=== PATIENT | female | born 1930 | race Caucasian/White ===

== ENCOUNTER 2019-09-24 23:01 | Inpatient (IN) | payer MEDICARE, OTHER ==
--- NOTE | 2019-09-25 00:03 | RAD ---
XR Hip Lt 2-3 View INDICATION: Fall with left hip injury COMPARISON: None FINDINGS: Bones: There is a varus angulated mid cervical left femoral neck fracture. 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 SI joints and symphysis pubis: There is mild degenerative change of a left SI joint. Intrapelvic contents: Visualized bowel gas pattern is within normal limits. Surrounding soft tissues: Radiographically normal. IMPRESSION: 1. Angulated mid cervical left femoral neck fracture.
--- NOTE | 2019-09-25 00:04 | RAD ---
AP view of the pelvis INDICATION: Fall with left hip pain COMPARISON: None. FINDINGS: Bones: There is a varus angulated mid cervical left femoral neck fracture. There is a right hip endop rosthesis in place. There is diffuse osteopenia. 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 SI joints and symphysis pubis: There is mild degenerative change. Intrapelvic contents: Within normal limits. IMPRESSION: Varus angulated mid cervical left femoral neck fracture.
[2019-09-25] MEDS ORDERED: Ondansetron PF 4 MG/2 ML Vial ONE ×2 (00:05→11:23)
[2019-09-25] MEDS ORDERED: Morphine 4 MG/ML VIAL ONE (00:05)
--- NOTE | 2019-09-25 00:07 | RAD ---
XR Wrist 3 Lt View STANDARD: 09/24/2019 11:24 PM CLINICAL INDICATION: Fall with left wrist pain COMPARISON: None. FINDINGS: Bones: There is shortening of the distal radius with transverse oriented lucency involving the left distal radial metaphyseal region on the AP and oblique projections. There is a cortical step-off involving the dorsal aspect of the dorsal radial styloid. Findings are suspicious for dorsally impact ed left distal radius fracture. Recommend correlation with clinical exam. Joints: There is moderate STT and first CMC osteoarthrosis.. Soft Tissue: There is mild soft tissue swelling surrounding the left wrist.. IMPRESSION: Findings suspicious for a nondisplaced dorsally impacted left distal radial metaphyseal fracture..
[2019-09-25 00:45] LABS: #Eosinphils 0.1 thou/uL (0.0-0.7); #Monocytes 0.5 thou/uL (0.11-0.59); #Neutrophils 6.5 thou/uL (1.40-6.50); %Basophils 0.3 % (0.0-1.0); %Eosinophils 0.8 % (0.0-10.0); %Lymphocytes 12.2 % (21.0-51.0); %Monocytes 6.3 % (0.0-10.0); %Neutrophils 80.4 % (42.0-75.0); Hemoglobin 14.2 g/dL (12.0-16.0); Mean Corpuscular HGB CONC 34.7 g/dL (32.0-36.0); Mean Corpuscular Hemoglobin 33.6 pg (27.0-31.0); Mean Platelet Volume 9.2 fL (7.4-10.4); Platelet Count 193 thou/uL (130-400); RBC Distribution Width 12.1 % (11.5-14.5); Red Blood Cell (RBC) Count 4.21 mill/uL (4.20-5.40); White Blood Cell (WBC) Count 8.1 thou/uL (4.8-10.8)
[2019-09-25 01:06] LABS: ALT (SGPT) 14 U/L (8-55); AST (SGOT) 15 U/L (5-34); Albumin 3.8 g/dL (3.4-4.8); Alkaline Phosphatase 94 U/L (40-110); Anion Gap 15 mmol/L (10-20); BUN (Urea Nitrogen) 13 mg/dL (9.8-20.1); Bilirubin, Total 0.2 mg/dL (0.2-1.2); Calc. Creatinine Clearance 0 mL/min (70-130); Calcium 8.9 mg/dL (7.8-10.44); Carbon Dioxide 24 mmol/L (23-31); Chloride 96 mmol/L (98-107); Estimated GFR-MDRD 52; Globulin 2.6 g/dL (2.4-3.5); Glucose 356 mg/dL (83-110); Potassium 4.8 mmol/L (3.5-5.1); Protein, Total 6.4 g/dL (6.0-8.3); Sodium 130 mmol/L (136-145)
--- NOTE | 2019-09-25 01:53 | HP ---
This is Peng Devi PA-C dictating a report for Shaggy Andrade MD. REQUESTING PHYSICIAN: Dr. Monique. ATTENDING SURGEON: Dr. Andrade. CONSULTATIONS: Orthopedics, Dr. Dejesus. HISTORY OF PRESENT ILLNESS: The patient is an 88-year-old woman who was at home, reaching for the door knob when she lost her balance and fell forward landing on her left side. She denied loss of consciousness. She was brought to the emergency department by ground EMS after she was able to summon her son, who lives with her. She was brought to the emergency department, underwent evaluation and examination and was noted to have suspected left distal radius fracture and a displaced left intertrochanteric femur fracture, at which time we were asked to evaluate the patient for admission and obtain orthopedic consultation. ALLERGIES: NONE. CURRENT MEDICATIONS: 1. Metformin. 2. Pantoprazole oral. 3. Simvastatin. 4. Alendronate. 5. Bisoprolol. 6. . PAST MEDICAL HISTORY: Type 2 diabetes, hypertension, hypercholesterolemia, uterine fibroids. PAST SURGICAL HISTORY: Right partial hip replacement, tonsillectomy, total hysterectomy. SOCIAL HISTORY: The patient denies drug, tobacco, or alcohol use. She lives at home with family. REVIEW OF SYSTEMS: 10-point review of systems is negative unless otherwise stated. PHYSICAL EXAMINATION: VITAL SIGNS: Blood pressure 142/82, heart rate 73, respirations 18, oxygen saturation 100% one 1 L via nasal cannula, and temperature is 98.1. GENERAL: The patient is resting comfortably in bed. She is awake, alert, conversant, appropriate. Tran Coma Scale is 15. HEENT: Unremarkable. The patient is normocephalic, atraumatic. Eyes, extraocular motions are intact. PERRLA bilaterally. Ears are atraumatic without discharge. Nose is atraumatic without discharge. Oropharynx is clear. NECK: Nontender. Trachea is midline. No JVD. CHEST: Clear to auscultation with good inspiratory and expiratory effort. HEART: Regular rate and rhythm. ABDOMEN: Soft, flat, nontender with active bowel sounds. PELVIS: Stable. EXTREMITIES: Neurovascularly intact x4. The patient does have tenderness to palpation to her left wrist and left hip consistent with her fractures. BACK: By report is atraumatic and nontender. LABORATORY FINDINGS: White blood cell count 8.1, hemoglobin 14.2, hematocrit 40.9, platelets 193. Sodium 130, potassium 4.8, chloride 96, CO2 of 24, BUN 13, creatinine 1.00, glucose 356. LFTs are unremarkable. RADIOGRAPHIC FINDINGS: AP chest x-ray shows no acute findings. CT of the brain without contrast shows no acute findings. AP pelvis shows a varus angulated mid cervical left femoral neck fracture. Views of the left hip again demonstrate the angulated mid cervical left femoral neck fracture. Views of the left wrist show findings suspicious for a nondisplaced dorsally impacted left distal radius metaphyseal fracture. ASSESSMENT AND PLAN: 1. Status post ground level fall. 2. Left distal radius fracture. 3. Left femoral neck fracture. 4. Acute pain secondary to above. 5. Hyponatremia, present on admission, unknown etiology. 6. Hyperglycemia secondary to diabetes. 7. History of hypertension, hypercholesterolemia, diabetes. PLAN: Plan will be to admit the patient to the surgical floor. She will be kept n.p.o. We will do IV fluid hydration and sliding scale insulin, pain control, pulmonary toilet, gastritis and mechanical VTE prophylaxis. The patient was splinted of her left forearm in the emergency department and the Emergency Department notified Dr. Dejesus of this patient. The evaluation, examination, laboratory, and radiographic findings will be discussed with Dr. Andrade after this dictation. Job ID: [id number]
[2019-09-25] MEDS ORDERED: Dextrose 5% in Water 1,000 ML IV PRN (02:38)
[2019-09-25] MEDS ORDERED: hydrALAZINE 20 MG/ML VIAL SLOW IVP PRN (02:38)
[2019-09-25] MEDS ORDERED: Dextrose 50% Abboject 50 ML SYRINGE SLOW IVP PRN (02:38)
[2019-09-25] MEDS ORDERED: Ondansetron PF 4 MG/2 ML Vial IVP PRN (02:38)
[2019-09-25] MEDS ORDERED: Ondansetron ODT 4 MG TAB PO PRN (02:38)
[2019-09-25] MEDS ORDERED: Morphine 2 MG/ML SYRINGE SLOW IVP PRN (02:38)
[2019-09-25] MEDS ORDERED: Morphine 4 MG/ML VIAL SLOW IVP PRN (02:38)
[2019-09-25 03:04] LABS: Magnesium 1.9 mg/dL (1.6-2.6); Phosphorus 3.4 mg/dL (2.3-4.7)
[2019-09-25] MEDS: Sodium Chloride 0.9% 1,000 ML IV SCH ×2 (03:08→15:00)
[2019-09-25 05:19] VITALS: BMI 23.5
--- NOTE | 2019-09-25 06:28 | CT ---
CT OF THE BRAIN WITHOUT CONTRAST: 09/24/19 INDICATION: Mechanical fall with head injury. COMPARISON: None. FINDINGS: There is generalized cerebral and cerebellar atrophy. No acute infarct, hemorrhage or hydrocephalus i s present. Mastoid air cells and paranasal sinuses are clear. Skull is intact. IMPRESSION: No acute intracranial abnormality. POS: BH
[2019-09-25] MEDS: Insulin Regular 300 UNITS/3 ML VIAL SC PRN ×2 (06:45→21:28)
[2019-09-25 07:05] LABS: #Lymphocytes 0.7 thou/uL (1.20-3.40); #Monocytes 0.5 thou/uL (0.11-0.59); #Neutrophils 9.1 thou/uL (1.40-6.50); %Eosinophils 0.4 % (0.0-10.0); %Lymphocytes 6.8 % (21.0-51.0); %Neutrophils 87.8 % (42.0-75.0); Hemoglobin 13.6 g/dL (12.0-16.0); Mean Corpuscular HGB CONC 34.6 g/dL (32.0-36.0); Mean Corpuscular Hemoglobin 33.5 pg (27.0-31.0); Mean Corpuscular Volume 96.9 fL (78.0-98.0); Mean Platelet Volume 9.3 fL (7.4-10.4); Platelet Count 176 thou/uL (130-400); RBC Distribution Width 12.2 % (11.5-14.5); Red Blood Cell (RBC) Count 4.05 mill/uL (4.20-5.40); White Blood Cell (WBC) Count 10.3 thou/uL (4.8-10.8)
[2019-09-25 07:18] LABS: Prothrombin Time 12.7 sec (12.0-14.7)
[2019-09-25 07:28] LABS: Phosphorus 3.9 mg/dL (2.3-4.7)
[2019-09-25 07:31] LABS: Anion Gap 12 mmol/L (10-20); BUN (Urea Nitrogen) 14 mg/dL (9.8-20.1); Calc. Creatinine Clearance 41 mL/min (70-130); Calcium 8.3 mg/dL (7.8-10.44); Carbon Dioxide 27 mmol/L (23-31); Chloride 96 mmol/L (98-107); Estimated GFR-MDRD 56; Glucose 353 mg/dL (83-110); Magnesium 1.8 mg/dL (1.6-2.6); Potassium 5.3 mmol/L (3.5-5.1); Sodium 130 mmol/L (136-145)
--- NOTE | 2019-09-25 07:35 | RAD ---
PORTABLE CHEST: HISTORY: Preop. FINDINGS: Lung yousif appear clear. No evidence of infiltrate. Heart and mediastinum unremarkable. IMPRESSION: No acute finding. POS: AGW
[2019-09-25] MEDS ORDERED: traMADol HCl 50 MG TAB PO PRN (08:05)
[2019-09-25] MEDS ORDERED: Alendronate Sodium 70 mg Tablet PO SCH (08:15)
[2019-09-25] MEDS: Acetaminophen 325 MG TAB PO SCH ×3 (08:30→21:27)
[2019-09-25] MEDS ORDERED: CEFAZOLIN 2 GM in Premix Bag 1 BAG IVPB SCH ×2 (08:45→14:00)
[2019-09-25] MEDS ORDERED: Famotidine 20 MG TAB PO SCH (09:00)
--- NOTE | 2019-09-25 09:15 | CON ---
DATE OF CONSULTATION: CHIEF COMPLAINT: Left hip pain. HISTORY OF PRESENT ILLNESS: Ms. Summers is an 88-year-old female, who fell at home. She lost her balance, reaching for her door. She landed on her left side. She has been falling frequently over the last several months. She does not use a walker. She lives with her son and [id number]. Unfortunately, she injured her left wrist and her left hip. X-rays showed a left femoral neck fracture, which was displaced as well as a nondisplaced left distal radius fracture. The patient was admitted to the hospital overnight. She has had pain control. She is resting comfortably. She denies any chest pain or shortness of breath. Orthopedics was consulted for her bony injuries. ALLERGIES: NONE. MEDICATIONS: 1. Metformin. 2. Pantoprazole. 3. Simvastatin. 4. Alendronate. 5. Bisoprolol. PAST MEDICAL HISTORY: Type 2 diabetes, hypertension, hypercholesterolemia, and fibroids. PAST SURGICAL HISTORY: Right hip hemiarthroplasty for fracture, tonsillectomy, hysterectomy. SOCIAL HISTORY: The patient lives with her son. She denies drug, alcohol, or tobacco use. REVIEW OF SYSTEMS: Positive for left hip pain with movement. Otherwise, negative 10-point review of systems. IMAGING: X-rays of the left hip and pelvis demonstrate a femoral neck fracture on the left with displacement and shortening of the bone. There is a previous hemiarthroplasty on the right hip. Left wrist x-rays demonstrated nondisplaced distal radius fracture. The patient has osteoarthritis of the hand and wrist. PHYSICAL EXAMINATION: VITAL SIGNS: Temperature is 97.5, pulse is 79, respiratory rate of 14, blood pressure is 127/71. GENERAL: She is alert and oriented, sitting upright, in no apparent distress. Breathing comfortably. HEENT: Normocephalic and atraumatic. RESPIRATORY: Breathing comfortably. CARDIOVASCULAR: Peripheral pulses are palpable and regular. MUSCULOSKELETAL: The patient's left lower extremity is shortened with external rotation. She is able to flex and extend the foot, ankle, and toes. She has a palpable dorsalis pedis pulse. The leg is warm and well perfused. Left upper extremity is in a splint above the wrist. She is able to flex and extend the fingers. She has mild swelling of her hand. Right upper and lower extremities are atraumatic. IMPRESSION: Left femoral neck fracture, displaced. Left distal radius fracture, nondisplaced. PLAN: The patient will go to the operating room this morning for hemiarthroplasty of the left hip. Goal is to restore the ability to mobilize and prevent complications of prolonged bedrest. Risks to include infection, pain, nerve or vascular injury, nonunion, wound complication, dislocation, hardware failure, and others. We will treat her wrist with a splint and this can be later converted to a wrist brace. She should be n.p.o. She will have antibiotics on-call to the operating room. Job ID: [id number]
[2019-09-25] MEDS ORDERED: Neomycin-Polymyxin 1 ML AMP ONE (09:18)
[2019-09-25] MEDS ORDERED: Insulin Regular 300 UNITS/3 ML VIAL ONE ×2 (09:41→11:23)
[2019-09-25] MEDS ORDERED: Fentanyl 100 MCG/2 ML VIAL ONE (09:42)
[2019-09-25] MEDS ORDERED: Morphine Sulfate 2 MG/ML SYRINGE SLOW IVP PRN (11:02)
[2019-09-25] MEDS ORDERED: HYDROmorphone 2 MG/ML VIAL SLOW IVP PRN (11:02)
[2019-09-25] MEDS ORDERED: PACU-Morphine 4MG/ML VIAL SLOW IVP PRN (11:02)
[2019-09-25] MEDS ORDERED: Promethazine HCl 25 MG/ML VIAL IM PRN (11:02)
[2019-09-25] MEDS ORDERED: Promethazine HCl 25 MG/ML VIAL SLOW IVP PRN (11:02)
[2019-09-25] MEDS ORDERED: Ondansetron HCl/PF 4 MG/2 ML Vial IVP PRN (11:02)
[2019-09-25] MEDS ORDERED: SUGAMMADEX SODIUM 200 MG/2 ML VIAL ONE (11:19)
[2019-09-25] MEDS ORDERED: Ketorolac Tromethamine 30 MG/ML VIAL ONE (11:23)
[2019-09-25] MEDS ORDERED: Lidocaine 1% PF 5 ML VIAL ONE (11:23)
[2019-09-25] MEDS ORDERED: PHENYLEPHRINE-NS 100 MCG/ML 10 ML SYRINGE ONE (11:23)
[2019-09-25] MEDS ORDERED: Dexamethasone 20 MG/5 ML VIAL ONE (11:23)
[2019-09-25] MEDS ORDERED: PROPOFOL 200 MG/20 ML VIAL ONE (11:23)
[2019-09-25] MEDS ORDERED: Rocuronium Bromide 10 MG/ML (10ML VIAL) ONE (11:23)
[2019-09-25] MEDS ORDERED: EPHEDRINE 25 MG/5 ML SYRINGE ONE (11:23)
--- NOTE | 2019-09-25 11:58 | OP ---
DATE OF PROCEDURE: 09/25/2019 PROCEDURE PERFORMED: Left hip hemiarthroplasty. PREOPERATIVE DIAGNOSIS: Left femoral neck fracture. POSTOPERATIVE DIAGNOSIS: Left femoral neck fracture. COMPLICATIONS: None. ESTIMATED BLOOD LOSS: Minimal. FINISH FILER: Marco Garcia. IMPLANTS: DePuy basic press-fit Rice stem size 5 with a size 44 mm +5 femoral head. INDICATION FOR PROCEDURE: Ms. Summers is an 88-year-old female, who fell and fractured the left femoral neck. She was indicated for hemiarthroplasty of the hip to restore the ability to mobilize and prevent complications of prolonged bedrest. Risks have been reviewed in detail. She elected to proceed with the operation. DESCRIPTION OF PROCEDURE: Ms. Summers was identified in the preoperative holding area. Her correct extremity was marked. She was carried to the operating room. She was positioned supine on the operative table. General anesthesia was induced. A multidisciplinary time-out was performed. The left lower extremity was prepped and draped in sterile fashion. We began the procedure with a lateral approach to the hip. We dissected down through the subcutaneous tissues to the fascia. The fascia was opened. We then exposed the underlying short external rotators of the hip. At this point, we performed a capsulotomy. We then removed the broken femoral head and neck fragments. We performed a new osteotomy with our oscillating saw. We then cleared the acetabulum of bony fragments. Next, we prepared the femoral canal. We entered the femoral canal with an osteotome followed by reaming up to a size 5. We then broached from a size 2 to a size 5. This gave a good fit. We trialed off this broach. A +5 length was appropriate for leg length and stability. At this point, we removed our trial components. We placed our final components and again reduced the hip. We then repaired the short external rotators and capsule through drill holes in the greater trochanter. Next, we performed a layered closure after thorough irrigation. The patient was taken to the recovery room in good condition. Job ID: [id number]
--- NOTE | 2019-09-25 12:19 | RAD ---
FRONTAL RADIOGRAPH PELVIS: DATE: 09/25/2019. COMPARISON: None. HISTORY: Evaluate pelvis following hip arthroplasty. FINDINGS: Cutaneous debbie are noted laterally on the left. Bilateral hip prostheses are present. No displac ed fracture noted. IMPRESSION: Evidence of recent right hip arthroplasty. POS: JULIANA
--- NOTE | 2019-09-25 12:20 | RAD ---
CROSSTABLE LATERAL VIEW OF THE LEFT HIP: DATE: 09/25/2019. HISTORY: Status post hip arthroplasty. FINDINGS: Bilateral hip arthroplasties are present. No evidence for hardware failure. Cutaneous debbie are n oted on the left. IMPRESSION: Status post hip arthroplasty with no radiographic evidence of hardware failure. POS: JULIANA
[2019-09-25 13:19] LABS: SARS-CoV-2 MS2 Positive; SARS-CoV-2 N Gene Negative; SARS-CoV-2 S Gene Negative; SARS-CoV-2 orf1ab Negative
[2019-09-25 14:37] LABS: Anion Gap 10 mmol/L (10-20); BUN (Urea Nitrogen) 14 mg/dL (9.8-20.1); Calc. Creatinine Clearance 49 mL/min (70-130); Calcium 7.9 mg/dL (7.8-10.44); Carbon Dioxide 26 mmol/L (23-31); Chloride 101 mmol/L (98-107); Estimated GFR-MDRD 70; Glucose 134 mg/dL (83-110); Sodium 133 mmol/L (136-145)
[2019-09-25] MEDS: Polyethylene Glycol 3350 17 GM Packet PO SCH (14:40)
[2019-09-25] MEDS: Senokot S 8.6-50 MG TAB PO SCH ×2 (14:40→21:28)
[2019-09-25] MEDS: Gabapentin 100 MG CAP PO SCH ×2 (14:40→21:27)
[2019-09-25 16:30] LABS: Bilirubin Negative (Negative); Blood, Urine Negative (Negative); Clarity Clear (Clear); Glucose, Urine (Dipstick) Greater than 1000 mg/dL (Negative); Leukocyte Negative Leu/uL (Negative); Nitrite Negative (Negative); Protein, Urine (Dipstick) Negative (Neg-Trace); Urobilinogen Normal mg/dL (Less than 2)
[2019-09-25] MEDS: Bisoprolol Fumarate 5 MG TAB PO SCH (16:32)
[2019-09-25] MEDS: CEFAZOLIN 2 GM in Premix Bag 1 BAG IVPB SCH (18:25)
--- NOTE | 2019-09-25 18:51 | PRG ---
DATE OF SERVICE: 09/25/2019 SUBJECTIVE: Ms. Summers is an 88-year-old female status post ground level fall. She sustained left wrist fracture, left femoral neck fracture. She underwent left femoral neck fracture fixation with hemiarthroplasty today. The patient tolerated with procedure well. Postop, the patient reports she has been doing well. Her pain is controlled with gentle movement. She tolerated with her diet. Her urine is adequate. Her blood pressure in the mid 80 when she sleeping. When she wakes up, her blood pressure systolic is 100. Other than that, the patient voiced no concern. OBJECTIVE: GENERAL: Currently, the patient is sitting in bed comfortable with no acute respiratory distress. VITAL SIGNS: Temperature 97.7, heart rate 78, respiratory rate 16, O2 saturation 94% on 2 L, and blood pressure 110 systolic. LUNGS: Clear bilaterally. HEART: Regular rate and rhythm. ABDOMEN: Soft, nondistended. EXTREMITIES: neurovascularly intact. Left hip fracture incision dressing clean and dry. Neurovascularly intact x4. NEUROLOGIC: No focal neurology deficits. ASSESSMENT: 1. Status post ground level fall. 2. Left distal radius fracture, conservative treatment. 3. Left femoral neck fracture, status post hemiarthroplasty, postop day 0. 4. Hyponatremia, present on admission, stable. 5. History of diabetes. 6. Hypertension, improved. PLAN: We will check cortisone level. We will monitor the patient's blood pressure closely. Continue pain control. The patient will be working with physical therapy and occupational therapy tomorrow. We will start chemical DVT prophylaxis tomorrow. Anticipate discharge to rehabilitation facility. Job ID: [id number] [facility]
[2019-09-25] MEDS: Atorvastatin Calcium 20 MG TAB PO SCH (21:27)
[2019-09-25] MEDS: Insulin Glargine 10 UNITS in Pre-Filled Syringe 1 EACH SC SCH (21:27)
[2019-09-25] MEDS: Latanoprost 0.005% Ophth Soln 2.5 ml Bottle EA EYE SCH (21:28)
--- NOTE | 2019-09-25 22:11 | PRG ---
DATE OF SERVICE: 09/25/2019 SUBJECTIVE: The patient is currently on the surgical floor. She is status post ground level fall, in which, she sustained a left distal radius fracture and left femoral neck fracture. Today, she underwent left hip hemiarthroplasty with Dr. Dejesus and she tolerated this procedure well. At that time of my visit, she reports that she "still feels loopy from the anesthesia." She was able to work with Physical therapy and sit at the side of the bed, which is pretty impressive for being immediately postop. She states that she does not have a great appetite, but her pain is controlled and she has no complaints at this time. PHYSICAL EXAMINATION: VITAL SIGNS: Stable. The patient is afebrile. GENERAL: The patient is resting comfortably in bed. HEENT: Unremarkable. LUNGS: Clear to auscultation bilaterally. HEART: Regular rate and rhythm. ABDOMEN: Soft, flat, nontender with active bowel sounds. EXTREMITIES: Neurovascularly intact x4. Postop dressing is clean, dry, and intact. Her left wrist has a volar splint in place. ASSESSMENT: 1. Status post ground level fall. 2. Left distal radius fracture. 3. Status post left hip hemiarthroplasty for left femoral neck fracture. 4. Hyponatremia present on admission, improving. 5. Hyperglycemia secondary to diabetes, on sliding scale insulin. 6. History of hypertension, hypercholesterolemia, and diabetes. 7. Adrenal insufficiency. PLAN: Plan will be to treat the patient's adrenal insufficiency with hydrocortisone. We will continue supportive care. Encourage physical and occupational therapy and discuss placement. Job ID: [id number]
[2019-09-25] MEDS ORDERED: Hydrocortisone Sod Succ/PF 100 mg/2 ml Vial IVP SCH (22:30)
[2019-09-26] MEDS: CEFAZOLIN 2 GM in Premix Bag 1 BAG IVPB SCH (03:04)
[2019-09-26] MEDS: Acetaminophen 325 MG TAB PO SCH ×4 (03:04→23:55)
[2019-09-26 05:58] LABS: #Lymphocytes 0.5 thou/uL (1.20-3.40); #Monocytes 0.4 thou/uL (0.11-0.59); #Neutrophils 6.4 thou/uL (1.40-6.50); %Eosinophils 0.2 % (0.0-10.0); %Lymphocytes 6.7 % (21.0-51.0); %Monocytes 5.4 % (0.0-10.0); %Neutrophils 87.6 % (42.0-75.0); Mean Corpuscular HGB CONC 32.9 g/dL (32.0-36.0); Mean Corpuscular Hemoglobin 32.8 pg (27.0-31.0); Mean Corpuscular Volume 99.9 fL (78.0-98.0); Mean Platelet Volume 9.7 fL (7.4-10.4); Platelet Count 160 thou/uL (130-400); RBC Distribution Width 12.2 % (11.5-14.5); Red Blood Cell (RBC) Count 3.05 mill/uL (4.20-5.40); White Blood Cell (WBC) Count 7.3 thou/uL (4.8-10.8)
[2019-09-26 06:17] LABS: Anion Gap 11 mmol/L (10-20); BUN (Urea Nitrogen) 13 mg/dL (9.8-20.1); Calc. Creatinine Clearance 50 mL/min (70-130); Calcium 7.3 mg/dL (7.8-10.44); Carbon Dioxide 24 mmol/L (23-31); Chloride 101 mmol/L (98-107); Estimated GFR-MDRD 72; Glucose 271 mg/dL (83-110); Magnesium 1.7 mg/dL (1.6-2.6); Phosphorus 3.1 mg/dL (2.3-4.7); Potassium 4.5 mmol/L (3.5-5.1); Sodium 131 mmol/L (136-145)
[2019-09-26] MEDS: Hydrocortisone Sod Succ/PF 100 mg/2 ml Vial IVP SCH ×3 (06:52→23:58)
[2019-09-26] MEDS: Insulin Regular 300 UNITS/3 ML VIAL SC PRN ×4 (06:53→23:58)
[2019-09-26] MEDS ORDERED: Magnesium Sulfate 3 GM in Sodium Chloride 0.9% 250 ML 250 ML IVPB SCH (07:15)
[2019-09-26] MEDS: Polyethylene Glycol 3350 17 GM Packet PO SCH (08:38)
[2019-09-26] MEDS: Gabapentin 100 MG CAP PO SCH ×2 (08:38→23:56)
[2019-09-26] MEDS: Senokot S 8.6-50 MG TAB PO SCH ×2 (08:38→23:58)
[2019-09-26] MEDS: Bisoprolol Fumarate 5 MG TAB PO SCH (10:06)
--- NOTE | 2019-09-26 10:19 | EKG ---
Test Reason : Blood Pressure : / mmHG Vent. Rate : 072 BPM Atrial Rate : 072 BPM P-R Int : 142 ms QRS Dur : 078 ms QT Int : 384 ms P-R-T Axes : 018 -12 018 degrees QTc Int : 420 ms Normal sinus rhythm with sinus arrhythmia Possible Anterior infarct , age undetermined Abnormal ECG Confirmed by BRITTNI HEWITT ([id number]), newspaper editor PANTERA PLATA ([id number]) on 09/26/2019 10:18:32 AM Referred By: Confirmed By:BRITTNI HEWITT
[2019-09-26] MEDS: Ascorbic Acid 500 mg Chewable Tablet PO SCH (16:09)
[2019-09-26] MEDS: Ferrous Sulfate 325 MG TAB PO SCH (16:09)
--- NOTE | 2019-09-26 16:41 | PRG ---
DATE OF SERVICE: 09/26/2019 SUBJECTIVE: Ms. Summers remains in the surgical floor. The patient reports she has been doing good. Pain is just controlled. She is able to work with Physical Therapy and Occupational Therapy. Tolerating with her regular diet. Her vital signs; blood pressure has been stable, not yet had bowel. OBJECTIVE: GENERAL: Currently, the patient lying in bed, comfortable, with no acute respiratory distress. VITAL SIGNS: Stable. LUNGS: Clear bilaterally. HEART: Regular rate and rhythm. ABDOMEN: Soft . EXTREMITIES: Postop dressing clean, dry, and intact. Left wrist splint is intact with neurovascularly intact x4. NEUROLOGIC: No focal neurology deficits. ASSESSMENT: 1. Status post ground level fall. 2. Left wrist fracture, conservative treatment. 3. Left hip fracture status post hemiarthroplasty. 4. Chronic hyponatremia, stable. 5. History of diabetes and hypertension. 6. Adrenal insufficiency, stable. PLAN: Continue supportive care. Continue pain control. Continue DVT prophylaxis. Continue working with Physical Therapy and Occupational Therapy. The patient will have lactulose today for constipation. Continue . The patient was discussed with Dr. Penny this morning. Job ID: [id number]
[2019-09-26] MEDS ORDERED: Enoxaparin Sodium 40 MG/0.4 ML SYRINGE SC SCH (21:00)
[2019-09-26] MEDS: Insulin Glargine 10 UNITS in Pre-Filled Syringe 1 EACH SC SCH (23:56)
[2019-09-26] MEDS: Atorvastatin Calcium 20 MG TAB PO SCH (23:56)
[2019-09-26] MEDS: Latanoprost 0.005% Ophth Soln 2.5 ml Bottle EA EYE SCH (23:57)
--- NOTE | 2019-09-27 01:31 | PRG ---
DATE OF SERVICE: 09/27/2019 SUBJECTIVE: The patient remains on the surgical floor. She is status post ground level fall when she sustained a left distal radius fracture and left femoral neck fracture. She is postop day 1, status post left hip hemiarthroplasty and her radius fracture is being treated in a splint. There was no reported issues today. She was started on hydrocortisone for her adrenal insufficiency, which appears to have stabilized and improved her blood pressure. She is voiding without difficulty and her bowel function has returned. She is tolerating a diet. Her pain is controlled. PHYSICAL EXAMINATION: VITAL SIGNS: Stable. The patient is afebrile. GENERAL: The patient is resting comfortably in bed. She was awake at the time of visit. I did not awaken her. She appeared in no distress. RESPIRATORY: Respirations appear nonlabored. The nurses report no issues. Her postop dressing and splint are clean, dry, and intact. ASSESSMENT/PLAN: 1. Status post ground level fall. 2. Left distal radius fracture. 3. Postop day 1, status post left hip hemiarthroplasty. 4. Hyponatremia, improving. 5. Hyperglycemia, on sliding scale insulin. 6. Adrenal insufficiency, improving. PLAN: Plan will be to continue supportive care. Encourage physical and occupational therapy and await placement decision. Job ID: [id number]
[2019-09-27] MEDS: Acetaminophen 325 MG TAB PO SCH ×3 (02:34→13:14)
[2019-09-27 05:33] LABS: #Lymphocytes 0.7 thou/uL (1.20-3.40); #Monocytes 0.4 thou/uL (0.11-0.59); #Neutrophils 6.8 thou/uL (1.40-6.50); %Basophils 0.1 % (0.0-1.0); %Eosinophils 0.3 % (0.0-10.0); %Lymphocytes 8.9 % (21.0-51.0); %Monocytes 5.5 % (0.0-10.0); %Neutrophils 85.2 % (42.0-75.0); Hemoglobin 9.4 g/dL (12.0-16.0); Mean Corpuscular HGB CONC 33.7 g/dL (32.0-36.0); Mean Corpuscular Hemoglobin 33.2 pg (27.0-31.0); Mean Corpuscular Volume 98.5 fL (78.0-98.0); Mean Platelet Volume 9.8 fL (7.4-10.4); Platelet Count 152 thou/uL (130-400); RBC Distribution Width 12.5 % (11.5-14.5); Red Blood Cell (RBC) Count 2.81 mill/uL (4.20-5.40); White Blood Cell (WBC) Count 7.9 thou/uL (4.8-10.8)
[2019-09-27 06:03] LABS: Anion Gap 8 mmol/L (10-20); BUN (Urea Nitrogen) 10 mg/dL (9.8-20.1); Calc. Creatinine Clearance 53 mL/min (70-130); Calcium 7.8 mg/dL (7.8-10.44); Carbon Dioxide 26 mmol/L (23-31); Chloride 103 mmol/L (98-107); Estimated GFR-MDRD 76; Glucose 209 mg/dL (83-110); Magnesium 2.5 mg/dL (1.6-2.6); Potassium 4.2 mmol/L (3.5-5.1); Sodium 133 mmol/L (136-145)
[2019-09-27] MEDS ORDERED: Sodium Phosphate 30 MMOL in Sodium Chloride 0.9% 250 ML 250 ML IVPB SCH (06:45)
[2019-09-27] MEDS: Hydrocortisone Sod Succ/PF 100 mg/2 ml Vial IVP SCH ×2 (06:47→13:08)
[2019-09-27] MEDS: Insulin Regular 300 UNITS/3 ML VIAL SC PRN ×3 (06:48→16:07)
[2019-09-27] MEDS ORDERED: Sodium Chloride 0.9% 500 ML IV SCH (08:30)
[2019-09-27] MEDS: Bisoprolol Fumarate 5 MG TAB PO SCH ×2 (08:44→16:07)
[2019-09-27] MEDS: Ferrous Sulfate 325 MG TAB PO SCH (08:45)
[2019-09-27] MEDS: Gabapentin 100 MG CAP PO SCH (08:45)
[2019-09-27] MEDS: Polyethylene Glycol 3350 17 GM Packet PO SCH (08:45)
[2019-09-27] MEDS: Senokot S 8.6-50 MG TAB PO SCH (08:45)
[2019-09-27] MEDS: Ascorbic Acid 500 mg Chewable Tablet PO SCH (08:45)
[2019-09-27] MEDS ORDERED: Aspirin 81 mg Enteric Coated Tablet PO SCH (09:00)
[2019-09-27 12:16] LABS: Hemoglobin 9.7 g/dL (12.0-16.0); Platelet Count 162 thou/uL (130-400)
[2019-09-27 15:56] VITALS: BP 125/85; TEMP 97.8
--- NOTE | 2019-09-28 11:47 | PRG ---
DATE OF SERVICE: 09/27/2019 SUBJECTIVE: Ms. Summers is an 88-year-old female, who suffered a ground-level fall with injuries of left femoral head fracture and left wrist fracture status post left hip hemiarthroplasty postop day #2. The patient remains on the surgical floor doing well. The patient on the morning of 09/26, was tachycardic up to the 140s. She had been on fluid restriction and not having very good p.o. intake, eating about 2/3 of the meals. She felt very thirsty and was given a 500 mL bolus of normal saline. Her heart rate then went to the 70s and normal sinus and EKG was performed when she was tachycardic, which showed sinus tachycardia. The patient complained of palpitations; however, denied chest pain, shortness of breath, lightheadedness, dizziness, or lower extremity edema. The patient complained of left lower extremity pain; however, she does well with physical therapy and walking around and her pain is well treated. OBJECTIVE: VITAL SIGNS: Blood pressure 107/63, 99% on 2 L nasal cannula, heart rate 70s, temperature 98.3. GENERAL: Sitting up in bed, resting quietly. No acute distress. No respiratory distress. RESPIRATORY: Clear to auscultation bilaterally. No wheezing, rales, or rhonchi. CARDIAC: Regular rate and rhythm. Rate of 70s. ABDOMEN: Soft and nontender. NEUROLOGIC: Neurovascularly intact x4. ASSESSMENT: 1. Status post ground-level fall. 2. Distal left radius fracture. 3. Postop day #2 status post left hip hemiarthroplasty. 4. Hyponatremia, improving, likely due to hypovolemia. 5. Hyperglycemia. Continue sliding scale insulin. 6. Adrenal insufficiency, improving. PLAN: Continue supportive care and physical therapy, occupational therapy. Awaiting placement. Continue to treat patient's pain. She is doing very well, tolerating her postop period. Job ID: [id number]
--- NOTE | 2019-09-29 17:55 | EKG ---
Test Reason : Blood Pressure : / mmHG Vent. Rate : 136 BPM Atrial Rate : 136 BPM P-R Int : 236 ms QRS Dur : 074 ms QT Int : 240 ms P-R-T Axes : 029 -06 180 degrees QTc Int : 361 ms Sinus tachycardia with 1st degree A-V block Abnormal ECG When compared with ECG of 25-SEP-2019 00:47, DC interval has increased Vent. rate has increased BY [address] now depressed in Anterolateral leads T wave inversion now evident in Inferior leads T wave inversion now evident in Anterolateral leads Confirmed by JOSE SANABRIA (2) on 09/29/2019 5:55:18 PM Referred By: SUSANA Confirmed By:JOSE SANABRIA
== END 2019-09-27 17:10 | DRG 470 ==
LOC: ERS 23:01 → SURG A 09-25 02:36
PROVIDERS: ADMIT Specialist; ATTEND Specialist
PROC: 0SRS03A Replacement of Left Hip Joint, Femoral Surface with Ceramic Synthetic Substitute, Uncemented, Open Approach (ICD-10-PCS; principal; 2019-09-25)
DX: S72.032A Displaced midcervical fracture of left femur, initial encounter for closed fracture (principal); S52.502A Unspecified fracture of the lower end of left radius, initial encounter for closed fracture; E87.1 Hypo-osmolality and hyponatremia; E27.40 Unspecified adrenocortical insufficiency; Z11.59 Encounter for screening for other viral diseases; E11.65 Type 2 diabetes mellitus with hyperglycemia; I10 Essential (primary) hypertension; E78.5 Hyperlipidemia, unspecified; E78.00 Pure hypercholesterolemia, unspecified; Z96.641 Presence of right artificial hip joint; W01.0XXA Fall on same level from slipping, tripping and stumbling without subsequent striking against object, initial encounter; Y92.009 Unspecified place in unspecified non-institutional (private) residence as the place of occurrence of the external cause; Z79.899 Other long term (current) drug therapy; Z79.84 Long term (current) use of oral hypoglycemic drugs; Z90.710 Acquired absence of both cervix and uterus
CPT/HCPCS: 29125; 36415; 36416; 70450; 71045; 72170; 80048; 80053; 81003; 82533; 83735; 84100; 84443; 85025; 85610; 85730; 87635; 93005; 93010; 96374; 96375; G0390; J0690; J1100; J1650; J1720; J1815; J1885; J2001; J2270; J2405; J2704; J3010; J3475; J7050; U0003

== ENCOUNTER 2019-09-29 00:43 | Emergency (ER) | payer MEDICARE | END 2019-09-29 02:03 | LOC: ERS 00:43 | DX: I47.1 Supraventricular tachycardia (principal); E11.9 Type 2 diabetes mellitus without complications; D25.9 Leiomyoma of uterus, unspecified; E78.00 Pure hypercholesterolemia, unspecified; Z79.84 Long term (current) use of oral hypoglycemic drugs; Z79.899 Other long term (current) drug therapy | CPT/HCPCS: 93005 ==

== ENCOUNTER 2019-09-29 12:51 | Inpatient (IN) | payer MEDICARE, OTHER ==
[2019-09-29] MEDS ORDERED: Diltiazem 125 MG/25 ML ONE (13:13)
[2019-09-29] MEDS ORDERED: Digoxin 0.5 MG/2 ML AMP ONE (13:13)
[2019-09-29] MEDS ORDERED: Magnesium 2 GM/50 ML BAG (IN WATER) ONE (13:13)
[2019-09-29 13:20] LABS: #Basophils 0.1 thou/uL (0.0-0.2); #Eosinphils 0.1 thou/uL (0.0-0.7); #Lymphocytes 1.8 thou/uL (1.20-3.40); #Monocytes 0.8 thou/uL (0.11-0.59); #Neutrophils 8.2 thou/uL (1.40-6.50); %Basophils 0.7 % (0.0-1.0); %Eosinophils 0.7 % (0.0-10.0); %Lymphocytes 16.4 % (21.0-51.0); %Monocytes 7.2 % (0.0-10.0); Mean Corpuscular HGB CONC 32.6 g/dL (32.0-36.0); Mean Corpuscular Hemoglobin 32.3 pg (27.0-31.0); Mean Platelet Volume 9.4 fL (7.4-10.4); Platelet Count 268 thou/uL (130-400); RBC Distribution Width 12.9 % (11.5-14.5); White Blood Cell (WBC) Count 10.9 thou/uL (4.8-10.8)
--- NOTE | 2019-09-29 13:20 | RAD ---
EXAM: CHEST ONE VIEW HISTORY: Dyspnea. COMPARISON: 09/24/2019 FINDINGS: The cardiac silhouette and pulmonary vasculature is within normal limits. There is mild patchy densit y seen at the medial right lung base as well as in the retrocardiac region left lung base which may represent atelectasis or focal areas of pneumonitis. No pleural fluid is appreciated. Degenerative ch anges are seen in the spine, and osteopenia again present. Vascular calcifications are again seen in the thoracic aorta. IMPRESSION: Patchy bibasilar densities which may represent atelectasis versus areas of pneumonitis. Follow-up to resolution is recommended.
[2019-09-29 13:46] LABS: ALT (SGPT) 27 U/L (8-55); AST (SGOT) 54 U/L (5-34); Albumin 3.2 g/dL (3.4-4.8); Alkaline Phosphatase 110 U/L (40-110); Anion Gap 13 mmol/L (10-20); BUN (Urea Nitrogen) 15 mg/dL (9.8-20.1); Bilirubin, Total 0.4 mg/dL (0.2-1.2); CK (CPK) 241 U/L (29-168); Calc. Creatinine Clearance 0 mL/min (70-130); Calcium 8.3 mg/dL (7.8-10.44); Carbon Dioxide 22 mmol/L (23-31); Chloride 100 mmol/L (98-107); Estimated GFR-MDRD 73; Globulin 2.4 g/dL (2.4-3.5); Glucose 198 mg/dL (83-110); Lipase 22 U/L (8-78); Potassium 5.2 mmol/L (3.5-5.1); Protein, Total 5.6 g/dL (6.0-8.3); Sodium 130 mmol/L (136-145)
[2019-09-29] MEDS ORDERED: Aspirin Chewable 81 MG TAB ONE (13:58)
[2019-09-29 14:12] LABS: CKMB 12.4 ng/mL (0-6.6)
--- NOTE | 2019-09-29 14:20 | CT ---
Exam: CT angiogram of the chest HISTORY: Tachycardia. COMPARISON: None TECHNIQUE: CT angiogram of the chest is performed in the axial plane. Three-dimensional reformatted i mages are submitted for interpretation FINDINGS: Mediastinum: No mass, lymphadenopathy or hematoma. HEART: Normal size. No significant pericardial fluid. Aorta: Limited evaluation by the lack of adequate IV contrast opacification. There is scattered ather osclerosis. Aorta does not appear to be enlarged. Upper solid abdominal viscera: No abnormality enhancement. Trachea and central bronchi: Patent Pleural spaces: Moderate right and small left pleural effusion. Lung parenchyma: Consolidation adjacent to pleural fluid may represent atelectasis. Aspiration and/or pneumonia cannot be excluded. Patchy groundglass opacities in the middle lobe and lingula. Pneumothorax: None Osseous structures: No lytic or blastic lesions. Remote compression fracture involving the L1 vertebr al body. Pulmonary arteries: Adequate contrast opacification pulmonary arterial system to the level of segment al arteries. No filling defect to suggest pulmonary embolism IMPRESSION: 1. No evidence of pulmonary artery embolus the level segmental arteries 2. Bilateral pleural effusion with adjacent parenchymal changes as described above.
[2019-09-29] MEDS ORDERED: Enoxaparin Sodium 80 MG/0.8 ML SYRINGE ONE (14:39)
[2019-09-29] MEDS ORDERED: Dextrose 50% Abboject 50 ML SYRINGE SLOW IVP PRN (14:52)
[2019-09-29] MEDS ORDERED: Morphine 2 MG/ML SYRINGE SLOW IVP PRN (14:52)
[2019-09-29] MEDS ORDERED: Ondansetron PF 4 MG/2 ML Vial IVP PRN (14:52)
[2019-09-29] MEDS ORDERED: Dextrose 5% in Water 1,000 ML IV PRN (14:52)
[2019-09-29] MEDS ORDERED: hydrALAZINE 20 MG/ML VIAL SLOW IVP PRN (14:52)
[2019-09-29 15:23] LABS: Magnesium 1.9 mg/dL (1.6-2.6)
[2019-09-29] MEDS ORDERED: Furosemide 40 MG/4 ML VIAL ONE (15:24)
[2019-09-29] MEDS ORDERED: traMADol HCl 50 MG TAB PO PRN (15:24)
[2019-09-29] MEDS ORDERED: Magnesium 2 GM/50 ML 2 GM in Premix Bag 1 BAG IVPB SCH (15:30)
[2019-09-29] MEDS ORDERED: PHOS-NAK 1 PKT PACK PO SCH (15:30)
[2019-09-29 15:37] LABS: Bilirubin Negative (Negative); Blood, Urine Trace (Negative); Glucose, Urine (Dipstick) 250 mg/dL (Negative); Ketone, Urine Trace mg/dL (Negative); Leukocyte Small (Negative); Nitrite Positive (Negative); Protein, Urine (Dipstick) Trace mg/dL (Neg-Trace)
[2019-09-29 15:38] LABS: Clarity Hazy (Clear)
[2019-09-29 15:47] LABS: Bacteria/HPF 2+ HPF (None Seen); Squamous Epithelial 0-3 HPF (0-3); WBC/HPF Greater Than 50 HPF (0-3)
[2019-09-29] MEDS ORDERED: cefTRIAXone\\ROCEPHIN 1 GM VIAL ONE (16:39)
[2019-09-29 17:40] LABS: Glucose 81 mg/dL (83-110)
[2019-09-29 17:42] LABS: Lactic Acid 2.4 mmol/L (0.5-2.2)
--- NOTE | 2019-09-29 18:04 | HP ---
TRAUMA SURGEON: Gold Penny DO CONSULTING PHYSICIAN: Dr. Emmanuel of Cardiology. HISTORY OF PRESENT ILLNESS: The patient is an 88-year-old female, who presented to the emergency department this afternoon with atrial fibrillation with RVR. 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 The patient was evaluated in the emergency department and discharged back to rehab. She did re-present today again after feeling short of breath and having a racing heart rate. Upon evaluation by the emergency room physician, he found that the patient was in atrial fibrillation with RVR and subsequently the patient received carvedilol followed by digoxin. She has also received before our evaluation aspirin and full-dose anticoagulation with Lovenox subcu as well as magnesium 2 g IV. Laboratory findings as well as imaging studies demonstrated concern for acute heart failure and NSTEMI. Trauma was consulted for readmission. Dr. Penny has consulted Dr. Emmanuel of Cardiology and we are further awaiting recommendations. The patient is hemodynamically stable, currently in the emergency room, and reports shortness of breath and lethargy. She denies any pain, numbness or tingling to her lower extremities. She denies syncope or loss of consciousness. She reports that she has previously been seen by a medical records specialist for racing heart that she describes just a tachycardia. She states that she does not see one regularly and has not had an echo. REVIEW OF SYSTEMS: All additional 10-point review of systems is negative except as indicated above. PAST MEDICAL HISTORY: Diabetes, hypertension, hypercholesterolemia, uterine fibroids. The patient also recently had a left hip fracture, for which she went to the OR with Orthopedic Surgery. She is postoperative day #4 now status post left hip hemiarthroplasty. PAST SURGICAL HISTORY: Right hip replacement, left hip replacement, tonsillectomy, total hysterectomy. SOCIAL HISTORY: The patient denies drug, tobacco, or alcohol use. She lives at home with her family. She is presenting here from rehab. MEDICATIONS: The patient was discharged from here 2 days ago with the following medications: 1. Tylenol. 2. Fosamax. 3. Vitamin C. 4. Aspirin 81 mg. 5. Bisoprolol. 6. Ferrous sulfate. 7. Gabapentin. 8. Lantus. 9. DuoNeb. 10. Xalatan eyedrops. 11. Metformin. 12. Zofran. 13. Pantoprazole. 14. MiraLAX. 15. Senokot S. 16. Simvastatin. 17. Tramadol. ALLERGIES: NO KNOWN DRUG ALLERGIES. PHYSICAL EXAMINATION: VITAL SIGNS: Temperature 97.8, pulse 54, respirations 21, oxygen saturation 96% on 2 L nasal cannula, blood pressure is 165/73. GENERAL: Elderly female, sitting up in bed with nasal cannula oxygen with some signs of mild respiratory distress. She is mildly tachypneic, but is ventilating well. PULMONARY: Equal chest rise and fall. Scattered crackles throughout bilateral lung yousif. No signs of cough. Some mild respiratory distress. CARDIAC: Bradycardic, but regular rhythm. No murmurs, gallops, or rubs. The patient has a mild bilateral JVD. GASTROINTESTINAL: Abdomen is soft, nontender, and nondistended. EXTREMITIES: 2+ pulses in all extremities. She has some mild lower extremity edema. Otherwise, gross motor and sensation are intact. NEUROLOGIC: GCS is 15. Pupils are equal, round, and reactive to light bilaterally. LABORATORY FINDINGS: White count 10.9, hemoglobin 11.0, hematocrit 33.6, platelets 268. Sodium 130, potassium 5.2, chloride 100, bicarb 22, BUN 15, creatinine 0.75, glucose 198, lactic acid 2.8, phosphorus 3.0, magnesium 1.9, total bilirubin 0.4, AST 54, ALT 27, alkaline phosphatase 110. Troponin 4.475. BNP 1062.7. UA is positive for bacteria, leukocyte esterase, and nitrites. DIAGNOSTIC FINDINGS: Chest x-ray demonstrates patchy bibasilar densities, which may represent atelectasis versus areas of pneumonitis. Followup to resolution is recommended. CTA of the chest demonstrates no evidence of pulmonary artery embolus, bilateral pleural effusions with adjacent parenchymal changes as described above. ASSESSMENT: 1. Atrial fibrillation with rapid ventricular response, now rate controlled. 2. Non-ST elevation myocardial infarction with no associated chest pain. 3. Acute congestive heart failure. 4. Urinary tract infection, complicated. 5. Postoperative day #4, status post left hip hemiarthroplasty from mechanical fall. 6. History of type 2 diabetes, hypertension, hypercholesterolemia, and uterine fibroid. 7. Acute hypomagnesemia. PLAN: The patient will be admitted to the Trauma Service. She will go to the [facility]. She is to receive a Paris catheter and 40 mg of IV Lasix in the emergency department. Continue to trend troponins q.[address] Emmanuel of Cardiology has been consulted and will see the patient. He has asked us to make the patient n.p.o. at midnight. We will keep her n.p.o. for now except for p.o. medications. We will follow up on diuresis and consider giving additional Lasix overnight. We will minimalize IV fluid intake. Echo has been ordered and is pending at this time. Repeat blood work in the morning as well. Repeat chest x-ray in the morning. We will hold off on PT/OT until the patient has been evaluated by Cardiology and deemed safe for activity. We will ask nursing to document vital signs and urinary output q.1 hour. This patient was seen and evaluated by Dr. Penny and myself this afternoon in the emergency department. Job ID: [id number]
[2019-09-29] MEDS ORDERED: Furosemide 40 MG/4 ML VIAL IVP SCH (18:45)
--- NOTE | 2019-09-29 18:47 | CON ---
DATE OF CONSULTATION: REASON FOR CONSULTATION: Elevated troponin and SVT. HISTORY OF PRESENT ILLNESS: Ms. Summers is an 88-year-old woman who recently presented to the emergency room from rehab with tachycardia. Heart rate was in the 150s. It appeared to be consistent with SVT. She spontaneous cardioverted back to sinus rhythm. She did have associated shortness of breath. She also had associated chest pain, although mild. She has no previous history of underlying coronary artery disease. She has not been seen and evaluated by Cardiology in the past. PAST MEDICAL HISTORY: Recent hip fracture, status post day 4, diabetes mellitus, hypertension, hyperlipidemia, uterine fibroids, tonsillectomy, total hysterectomy. SOCIAL HISTORY: No current tobacco or alcohol use. MEDICATIONS: Tylenol, Fosamax, vitamin C, aspirin, metoprolol, iron sulfate, gabapentin, Lantus, DuoNeb, Metformin, Zofran, pantoprazole, Mirapex, Senokot, simvastatin, tramadol. ALLERGIES: NONE. REVIEW OF SYSTEMS: Ten-point review of systems is reviewed and as above, otherwise negative. PHYSICAL EXAMINATION: GENERAL: Patient is a pleasant women who is in no acute distress. The patient appears their stated age. VITAL SIGNS: Blood pressure 110/70, pulse 80, respiratory rate 20. NEUROLOGIC: The patient is alert and oriented x3 with no focal neurologic deficits. HEENT: Sclerae without icterus. Mouth has moist mucous membranes with normal pallor. NECK: No JVD. Carotid upstroke brisk. No bruits bilaterally. LUNGS: Crackles noted bilaterally. BACK: No scoliosis or kyphosis. CARDIAC: Regular rate and rhythm with normal S1 and S2. No S3 or S4 noted. No significant rubs, murmurs, thrills, or gallops noted throughout the precordium. PMI is not displaced. There is no parasternal heave. ABDOMEN: Soft, nontender, nondistended. No peritoneal signs present. No hepatosplenomegaly. No abnormal striae. EXTREMITIES: 2+ femoral and 2+ dorsalis pedis pulses. No cyanosis, clubbing, or edema. SKIN: No gross abnormalities. LABS: CK-MB 12.4, troponin 4.4 up to 5.8. EKG shows normal sinus rhythm with nonspecific ST-T wave changes. IMPRESSION: 1. Supraventricular tachycardia. 2. Shortness of breath. 3. Status post hip fracture. RECOMMENDATIONS: Ms. Summers symptoms can certainly be due to underlying coronary artery disease. Her CK-MB and troponin are consistent with the above. This may also be due to demand ischemia from an elevated heart rate. 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 At this point I recommend echo Doppler to assess LVEF. We would recommend diuresis. Symptoms consistent with SVT and not atrial fibrillation. Does not need anticoagulation therapy. She may need coronary angio prior to discharge to assess her coronary anatomy. Job ID: [id number]
[2019-09-29] MEDS: Digoxin 0.25 MG TAB PO SCH (19:09)
[2019-09-29] MEDS: Acetaminophen 500 MG TAB PO SCH ×2 (19:09→23:42)
[2019-09-29] MEDS: Ciprofloxacin 500 MG TAB PO SCH (20:14)
[2019-09-29] MEDS: Famotidine 20 MG TAB PO SCH (20:15)
[2019-09-29] MEDS: Gabapentin 100 MG CAP PO SCH (20:15)
[2019-09-29 20:46] LABS: Troponin I 5.115 ng/mL (< 0.028)
[2019-09-29 20:47] LABS: Glucose 63 mg/dL (83-110)
[2019-09-29 22:50] LABS: Troponin I 3.824 ng/mL (< 0.028)
--- NOTE | 2019-09-29 23:44 | PRG ---
DATE OF SERVICE: 09/29/2019 SUBJECTIVE: The patient remains on the intermediate care unit, currently resting comfortably. The patient is currently requiring 2 L nasal cannula oxygen, saturating 100%. The patient was diuresed earlier today. OBJECTIVE: VITAL SIGNS: Stable, afebrile. GENERAL: Elderly female, resting comfortably, in no acute distress. PULMONARY: Equal chest rise and fall, respirations are even and nonlabored. CARDIAC: Bradycardic at 54, regular rhythm. LABORATORY DATA: Troponin decreased to 3.824. Urine culture pending. DIAGNOSTICS: Echocardiogram pending. IMPRESSION: 1. Atrial fibrillation with rapid ventricular response, now rate controlled. 2. Non-ST elevation myocardial infarction with no associated chest pain. 3. Acute congestive heart failure. 4. Urinary tract infection on admission, complicated. 5. Postoperative day #4, status post left hip hemiarthroplasty from mechanical fall. 6. History of type 2 diabetes, hypertension, hypercholesterolemia, and uterine fibroids. PLAN: Continue supportive care. Continue antibiotics for UTI. Continue to diurese as needed. Possible coronary angio prior to discharge to assess coronary anatomy per Cardiology recommendations. Repeat labs in the morning. Cardiology recommends no need for anticoagulation therapy as symptoms are more consistent with SVT and not atrial fibrillation. Job ID: [id number]
[2019-09-30 04:17] LABS: Band 5 % (5-11); Eosinophils 1 % (0-10); Hemoglobin 9.4 g/dL (12.0-16.0); Lymphocytes 26 % (21-51); MDiff Complete? YES; Mean Corpuscular HGB CONC 33.3 g/dL (32.0-36.0); Mean Corpuscular Hemoglobin 32.9 pg (27.0-31.0); Mean Corpuscular Volume 98.8 fL (78.0-98.0); Mean Platelet Volume 9.3 fL (7.4-10.4); Monocytes 10 % (0-10); Neutrophil 58 % (42-75); Platelet Count 180 thou/uL (130-400); Platelet Morphology Comment Appears Adequate; RBC Distribution Width 12.7 % (11.5-14.5); Red Blood Cell (RBC) Count 2.86 mill/uL (4.20-5.40); White Blood Cell (WBC) Count 7.4 thou/uL (4.8-10.8)
[2019-09-30 04:21] LABS: Anion Gap 11 mmol/L (10-20); Calc. Creatinine Clearance 69 mL/min (70-130); Calcium 7.7 mg/dL (7.8-10.44); Carbon Dioxide 23 mmol/L (23-31); Chloride 101 mmol/L (98-107); Estimated GFR-MDRD Greater than 90; Potassium 4.1 mmol/L (3.5-5.1); Sodium 131 mmol/L (136-145)
[2019-09-30 04:30] LABS: BUN (Urea Nitrogen) 13 mg/dL (9.8-20.1); Glucose 61 mg/dL (83-110); Magnesium 2.1 mg/dL (1.6-2.6)
[2019-09-30 04:33] LABS: PTT 27.6 sec (22.9-36.1); Prothrombin Time 13.2 sec (12.0-14.7)
[2019-09-30] MEDS: Acetaminophen 500 MG TAB PO SCH ×3 (06:37→20:14)
[2019-09-30] MEDS: Ciprofloxacin 500 MG TAB PO SCH (06:37)
[2019-09-30] MEDS: Digoxin 0.25 MG TAB PO SCH (06:37)
--- NOTE | 2019-09-30 08:07 | RAD ---
Chest one view HISTORY: Dyspnea. Follow-up. COMPARISON: 09/29/2019. FINDINGS: Cardiac silhouette is magnified by projection. Pulmonary vasculature upper limits of normal . Mediastinum is midline with aortic calcification. Bilateral pleural fluid is again demonstrated. Line ar opacity at the right posterior lung base has progressed since the previous exam. No lobar consolidation or evidence of pneumothorax. contracts director leads overlie the chest. IMPRESSION : Interval increase in linear atelectasis/infiltrate at the right lung base. Bilateral pleural fluid and other findings are otherwise stable.
[2019-09-30 08:18] LABS: Glucose 94 mg/dL (83-110)
[2019-09-30 08:24] LABS: Phosphorus 3.1 mg/dL (2.3-4.7)
[2019-09-30] MEDS ORDERED: Furosemide 40 MG/4 ML VIAL SLOW IVP SCH (08:30)
[2019-09-30] MEDS ORDERED: Iopamidol 370 76% 100 ML VIAL ONE (08:40)
[2019-09-30] MEDS ORDERED: Aspirin 325 mg Enteric Coated Tablet PO SCH (09:00)
[2019-09-30] MEDS: cefTRIAXone\\ROCEPHIN 1 GM in Sodium Chloride 0.9% 100 ML IVPB SCH (09:08)
[2019-09-30] MEDS: Gabapentin 100 MG CAP PO SCH ×3 (09:09→20:27)
[2019-09-30] MEDS: Famotidine 20 MG TAB PO SCH (11:16)
[2019-09-30 12:10] LABS: Glucose 108 mg/dL (83-110)
--- NOTE | 2019-09-30 12:30 | PRG ---
DATE OF SERVICE: 09/30/2019 SUBJECTIVE: Ms. Summers is seen in IMCU today. She is sitting up in bed. States that she feels okay. She does have a run of SVT earlier today. Currently, heart rate has actually been in bradycardic. Since she has been here, she was given Lasix 40 mg yesterday and she is net negative 1300 mL. Her chest x-ray still demonstrates some edema. She has been ordered additional 40 mg of Lasix, which was just given prior to arrival. She is on room air at the time. However, she is saturating 88% to 89%. She is noted to have an NSTEMI and Cardiology has been consulted. They are planning for cath tomorrow. The patient does not have any current chest pain. We have changed her from Cipro to ceftriaxone for her urinary tract infection. The pain is reportedly controlled. The patient was evaluated by Dr. Gold Penny. We discussed the case with Dr. Emmanuel from Cardiology and I think he agrees with the same, we are going to resume the patient's anticoagulation for DVT prophylaxis. The patient has no other complaints at this time, just states that she feels weak. PHYSICAL EXAMINATION: VITAL SIGNS: Temperature is 97.9, blood pressure 143/73, heart rate is 56. She is breathing 16 times per minute. She is now saturating 97% on 2 L of oxygen via nasal cannula. GENERAL: This is an 88-year-old female, sitting up in bed, in no acute distress. HEENT: Normocephalic and atraumatic. Trachea is midline. RESPIRATORY: Bibasilar crackles. Otherwise, she moves air well. There are no rubs or wheezes. CARDIOVASCULAR: She has a bradycardic, regular rhythm. No yu edema. ABDOMEN: Soft and nontender. PELVIS: Stable. MUSCULOSKELETAL: She is able to move well. Warm extremities. SKIN: Warm and dry. LABORATORY DATA: From today, white blood cell count of 7.4, platelets are 180, hemoglobin and hematocrit are 9.4 and 28.2 respectively. Sodium is 131, potassium 4.1, chloride is 101, CO2 is 23, BUN is 13, creatinine 0.58, glucose last point of care is 135, phos is 3.0, mag is 2.1. BNP of 577.9. ASSESSMENT AND PLAN: 1. Atrial tachycardia versus SVT, now bradycardic. 2. Xis-VQ-phqyguckr myocardial infarction. 3. Congestive heart failure with volume overload. 4. Urinary tract infection. 5. Postoperative day #5 status post left hip hemiarthroplasty from a mechanical fall. 6. History of diabetes, hypertension, hypercholesterolemia, uterine fibroid. 7. Hyponatremia, stable. PLAN: 1. We will change the patient from Cipro to ceftriaxone. 2. Continue IV diuresis. 3. Cardiology is consulted, appreciate recommendation, plan for lab nurse today vs tomorrow for further eval. 4. Continue aspirin. 5. Continue pain control as needed. 6. Start Mucinex at the patient's request. 7. Continue sliding scale insulin. 8. Antiarrhythmics per Cardiology. 9. Continue all other supportive care. 10. Plan for heart catheterization in the morning. 11. Repeat BMP, mag and phos levels this evening, given IV diuresis. 12. Electrolyte replacement as needed. 13. Repeat labs in the morning. 14. I have updated the patient at bedside and answered all questions. The patient was seen by Dr. Gold Penny and plan can be updated as needed. Job ID: [id number] [facility]
[2019-09-30] MEDS ORDERED: guaiFENesin 200 MG TAB PO SCH (14:00)
[2019-09-30] MEDS ORDERED: Adenosine 6 MG/2 ML VIAL ONE ×2 (15:02→16:06)
[2019-09-30] MEDS ORDERED: Nitroglycerin 100MG/250ML BOT 250 ML ONE (15:22)
[2019-09-30] MEDS ORDERED: Isoproterenol 0.2 MG/1 ML AMP ONE (15:24)
[2019-09-30] MEDS ORDERED: Heparin 10,000 UNITS/1 ML VIAL ONE (15:24)
[2019-09-30] MEDS ORDERED: Fentanyl 100 MCG/2 ML VIAL ONE ×2 (15:26→16:06)
[2019-09-30] MEDS ORDERED: Propofol 500 MG/50 ML VIAL ONE (15:26)
--- NOTE | 2019-09-30 15:33 | PRG ---
DATE OF SERVICE: 09/30/2019 SUBJECTIVE: Ms. Summers is doing better today. No current complaints. No chest pain or pressure. She has had intermittent episodes of SVT. This afternoon, she did have an episode of SVT. Under my supervision, she underwent adenosine x1, 6 mg, and converted to a sinus rhythm. OBJECTIVE: VITAL SIGNS: Blood pressure 170/96, pulse 64, temperature afebrile. LUNGS: Clear to auscultation. HEART: Regular rate and rhythm. ABDOMEN: Soft, nontender, nondistended. EXTREMITIES: No edema. PERTINENT LABORATORY DATA: Hemoglobin 9.4. BNP of 577. IMPRESSION: 1. Elevated troponin. 2. Supraventricular tachycardia. 3. Recent hip fracture. RECOMMENDATIONS: At this point, based on her elevated CK-MB and troponin, would recommend coronary angiography possible PCI. This may be related to demand ischemia, but may also be due to unstable angina. I would therefore recommend the above. I discussed the procedure in full detail with Ms. Summers. The risks of the procedure were also discussed. The risks of the procedure include but are not limited to the following: , stroke, MT, need for emergency surgery, loss of limb, bleeding, and infection, as well as a reaction to the dye causing kidney failure and needing long-term dialysis. I also discussed the risks of PCI to include all of the above including coronary dissection and perforation in addition to acute stent thrombosis and restenosis. All questions about the procedure were answered. Given the above, the patient agreed to proceed with coronary angiography and possible PCI. All questions were answered. Given the above, the patient agreed to proceed with above procedure. There were no complications to proceed with the drug-coated stent placement, after discussing this with Ms. Summers. If no significant findings are noted due to demand ischemia, we will then proceed with EP study. Job ID: [id number]
[2019-09-30] MEDS ORDERED: Midazolam HCl 2 mg/2 ml Vial ONE (16:06)
--- NOTE | 2019-09-30 18:14 | OP ---
DATE OF PROCEDURE: 09/30/2019 PROCEDURES PERFORMED: Electrophysiology study and radiofrequency ablation. ADDITIONAL REFERRING PHYSICIAN: Dr. Penny. REASON FOR PROCEDURE: Ms. Summers is an 88-year-old lady, who presented with frequent recurrent runs of supraventricular tachycardia, which was adenosine terminable. She had a recent left hip repair with Dr. Penny on prior admission. She has undergone a left heart catheterization for elevated troponins by Dr. Emmanuel and proximal LAD lesion was found. Due to the frequent recurrences of the SVT, which appears to be typical for AV wade reentrant tachycardia, we agreed on proceeding with the procedure in an attempt to terminate the frequent recurrences. The patient also has a significant bradycardia and not well tolerated to the negative inotropic agents. DESCRIPTION OF PROCEDURE: The patient received deep sedation by Anesthesia specialist. Left heart catheterization was performed by Dr. Emmanuel, please see separate report. The right femoral arterial sheath was left in after procedure. With ultrasound guidance, both femoral venous area was cannulated, and on the left side, a 6 and 8-Trinidadian sheaths were used to advance a decapolar and octapolar catheters to the CS and His, right ventricular, right atrial positions. Basic EP study was performed with these catheters with the following findings. Baseline rhythm was sinus rhythm at 764 milliseconds, ID 119 milliseconds, QRS 73 milliseconds, QT 363 milliseconds, AH 61 milliseconds, HV 46 milliseconds. The AV Wenckebach cycle length was 350 milliseconds and retrograde Wenckebach cycle length was 330 milliseconds. AV wade ERP was 600/320 milliseconds. The dual AV wade physiology was noted with ventricular pacing, concentric retrograde VA conduction was seen. With extra stimuli testing, we were able to induce AV wade reentrant tachycardia with very short VA timing. Burst ventricular and atrial pacing terminated the arrhythmia. The right femoral venous area was prepped, draped, anesthetized, and an 8-Trinidadian short sheath was introduced. Through this, a 4 mm ablation catheter was advanced to the right atrium and 3D map of the right atrium, His bundle, and CS positions were obtained. The slow pathway area was marked and radiofrequency ablation was delivered, total of four lesions delivered at 1 minute and 20 seconds total duration at 50 lopez, 60 degrees cutoff. During the ablation, junctional rhythm was observed. No AV block was seen. Following the ablation, the AV Wenckebach cycle length was changed to 410 milliseconds. Extra stimuli testing demonstrated no evidence of dual AV wade pathway and the AV ERP was 600/380 milliseconds. No further AV wade reentrant tachycardia was inducible. With rapid atrial pacing, we were able to induce an atrial flutter, which appears to be typical isthmus dependent in morphology, but quickly morphed into an atrial fibrillation. Eventually, the tachycardia self-terminated and did not require cardioversion. At the end of the case, the Isuprel challenge was not performed, hence a very tight proximal LAD lesion to avoid ischemia, the cardiac silhouette did not change during the procedure and the femoral venous access sites were removed and Vascade closure was performed in each venous access. The arterial sheath was pulled and manual pressure was applied for hemostasis. CONCLUSION: 1. 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 2. Slow pathway modification ablation eliminated inducibility. 3. Adequate AV wade function post ablation. 4. Inducible nonsustained atrial flutter/fibrillation is also seen, but self-terminated. PLAN: Monitor for post ablation, possible CABG as per Dr. Emmanuel. Job ID: [id number] [facility]
[2019-09-30 20:03] LABS: Anion Gap 15 mmol/L (10-20); BUN (Urea Nitrogen) 12 mg/dL (9.8-20.1); Calc. Creatinine Clearance 64 mL/min (70-130); Calcium 7.7 mg/dL (7.8-10.44); Carbon Dioxide 22 mmol/L (23-31); Chloride 99 mmol/L (98-107); Estimated GFR-MDRD 82; Glucose 141 mg/dL (83-110); Potassium 4.3 mmol/L (3.5-5.1); Sodium 132 mmol/L (136-145)
[2019-09-30] MEDS: guaiFENesin ER 600 MG TAB PO SCH (20:27)
[2019-09-30 20:29] LABS: Magnesium 1.8 mg/dL (1.6-2.6); Phosphorus 3.8 mg/dL (2.3-4.7)
[2019-10-01] MEDS: Acetaminophen 500 MG TAB PO SCH ×5 (00:06→23:52)
--- NOTE | 2019-10-01 02:45 | PRG ---
DATE OF SERVICE: 09/30/2019 SUBJECTIVE: The patient remains in the intermediate care unit. The patient is currently resting comfortably in no acute distress. The patient remains in sinus rhythm on the vehicle monitor technician. The patient had a coronary catheterization today with ablation by Dr. Villalobos. Proximal LAD lesion was found during left heart catheterization. The patient's urinary output is adequate for age and weight. OBJECTIVE: VITAL SIGNS: Stable, afebrile. GENERAL: Elderly female, resting comfortably, in no acute distress. RESPIRATORY: Equal chest rise and fall, respirations are even and nonlabored. IMPRESSION: 1. Atrial tachycardia versus supraventricular tachycardia, resolved. 2. Fpm-[id number]-uygfpqfyj myocardial infarction. 3. Congestive heart failure with volume overload. 4. Urinary tract infection. 5. Postop day #5, status post left hip hemiarthroplasty from a mechanical fall. 6. Hyponatremia, stable. 7. History of diabetes, hypertension, hypercholesterolemia, uterine fibroids. PLAN: Continue antibiotics for UTI. Continue to diurese as needed. Plan for heart Job ID: [id number]
[2019-10-01 04:02] LABS: #Eosinphils 0.2 thou/uL (0.0-0.7); #Lymphocytes 1.4 thou/uL (1.20-3.40); #Monocytes 0.6 thou/uL (0.11-0.59); #Neutrophils 4.8 thou/uL (1.40-6.50); %Basophils 0.2 % (0.0-1.0); %Eosinophils 3.1 % (0.0-10.0); %Lymphocytes 20.3 % (21.0-51.0); %Monocytes 8.5 % (0.0-10.0); Hemoglobin 9.9 g/dL (12.0-16.0); Mean Corpuscular HGB CONC 33.2 g/dL (32.0-36.0); Mean Corpuscular Volume 99.4 fL (78.0-98.0); Mean Platelet Volume 8.7 fL (7.4-10.4); Platelet Count 250 thou/uL (130-400); RBC Distribution Width 13.2 % (11.5-14.5); Red Blood Cell (RBC) Count 2.99 mill/uL (4.20-5.40); White Blood Cell (WBC) Count 7.1 thou/uL (4.8-10.8)
[2019-10-01 04:05] LABS: PTT 24.5 sec (22.9-36.1); Prothrombin Time 13.5 sec (12.0-14.7)
[2019-10-01 04:18] LABS: Phosphorus 3.6 mg/dL (2.3-4.7)
[2019-10-01 04:24] LABS: Anion Gap 14 mmol/L (10-20); BUN (Urea Nitrogen) 9 mg/dL (9.8-20.1); Calc. Creatinine Clearance 65 mL/min (70-130); Calcium 7.8 mg/dL (7.8-10.44); Carbon Dioxide 23 mmol/L (23-31); Chloride 99 mmol/L (98-107); Estimated GFR-MDRD 85; Glucose 103 mg/dL (83-110); Magnesium 1.8 mg/dL (1.6-2.6); Potassium 4.1 mmol/L (3.5-5.1); Sodium 132 mmol/L (136-145)
[2019-10-01] MEDS ORDERED: Magnesium 2 GM/50 ML 2 GM in Premix Bag 1 BAG IVPB SCH (07:45)
[2019-10-01] MEDS ORDERED: PHOS-NAK 1 PKT PACK PO SCH (07:45)
[2019-10-01 07:50] LABS: Glucose 112 mg/dL (83-110)
[2019-10-01] MEDS: Atorvastatin Calcium 40 MG TAB PO SCH (08:59)
[2019-10-01] MEDS: Ferrous Sulfate 325 MG TAB PO SCH ×2 (08:59→15:32)
[2019-10-01] MEDS: Ascorbic Acid 500 mg Chewable Tablet PO SCH ×2 (08:59→15:32)
[2019-10-01] MEDS: guaiFENesin ER 600 MG TAB PO SCH ×2 (09:00→20:29)
[2019-10-01] MEDS: Gabapentin 100 MG CAP PO SCH ×3 (09:00→20:29)
[2019-10-01] MEDS ORDERED: Aspirin 81 mg Enteric Coated Tablet PO SCH ×2 (09:00→10:13)
[2019-10-01] MEDS: cefTRIAXone\\ROCEPHIN 1 GM in Sodium Chloride 0.9% 100 ML IVPB SCH (09:01)
--- NOTE | 2019-10-01 09:01 | PRG ---
DATE OF SERVICE: 10/01/2019 SUBJECTIVE: Ms. Summers states today she is feeling much better. She has not had any further episodes of SVT. She underwent successful ablation yesterday by Dr. Villalobos. OBJECTIVE: VITAL SIGNS: Blood pressure 156/61, pulse 97, temperature 98.1. LUNGS: Clear to auscultation. HEART: Regular rate and rhythm. ABDOMEN: Soft, nontender, nondistended. EXTREMITIES: No edema. PERTINENT LABORATORY DATA: Hemoglobin 9.9, white blood cell count 7.1. IMPRESSION: 1. Severe coronary artery disease. 2. Supraventricular tachycardia. 3. Recent hip fracture. RECOMMENDATIONS: 1. Ms. Summers is scheduled for her bypass surgery today or Friday. 2. Avoid beta-emili therapy due to bradycardia. 3. Add statin therapy. 4. Continue aspirin. Job ID: [id number]
[2019-10-01] MEDS ORDERED: Aspirin 325 mg Enteric Coated Tablet PO SCH (10:45)
--- NOTE | 2019-10-01 11:03 | CON ---
DATE OF CONSULTATION: 09/30/2019 HISTORY OF PRESENT ILLNESS: I am seeing Ms. Summers at our [facility] IMU unit as electrophysiology outreach consultant for the following problems: 1. Recurrent supraventricular tachycardia with adenosine termination: a. 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 2. Sick sinus syndrome with bradycardia post conversion to sinus rhythm, making medical therapy difficult. 3. Adb-AQ-tsqdfador myocardial infarction with elevated troponin level of 4, associated with tachycardia. 4. Recent slip and fall and left hip fracture, requiring ORIF on the left femur on 09/25/2019. 5. Hypertension. 6. Type 2 diabetes. 7. Hyperlipidemia. ALLERGIES: NONE. MEDICATIONS: At home included; 1. Zebeta (bisoprolol) 5 mg daily. 2. Pantoprazole. 3. Metformin. 4. Latanoprost. 5. Tylenol. 6. Vitamin C. 7. Aspirin. 8. Ferrous sulfate. 9. Gabapentin. 10. Polyethylene glycol . 11. Tramadol. 12. Guaifenesin. 13. Diphenhydramine. 14. Clonidine. 15. Calcium. 16. Bisacodyl. 17. Benzocaine. 18. Insulin. 19. Lipitor. SUBJECTIVE: Ms. Summers was admitted with rapid palpitations, requiring ambulance, given an adenosine injection, which promptly terminated the arrhythmia. 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 She has not passed out with these episodes. She has had associated chest pain, although mild. No prior history of coronary artery disease is noted. Rest of review of system otherwise unremarkable. No acute gastrointestinal, musculoskeletal, ear, nose, throat, neuropsychiatric, genitourinary symptoms noted. She is recovering well from her recent hip surgery. PAST HISTORY: Also significant for the above as well as uterine fibroids, tonsillectomy, total hysterectomy. SOCIAL HISTORY: The patient denies smoking, EtOH, or drug use. FAMILY HISTORY: Not contributory. OBJECTIVE DATA: VITAL SIGNS: Blood pressure is 142/73, heart rate is 86, respiration is 15, temperature 98.2 degrees Fahrenheit. GENERAL: This is an alert and oriented, elderly lady, in no apparent distress. NECK: Supple. Jugular veins not distended. CHEST: Coarse, no crackles. HEART: Sounds are regular to rate and rhythm. No murmur or gallop. ABDOMEN: Benign. Bowel sounds are positive. No hepatosplenomegaly is felt. EXTREMITIES: No lower extremity edema noted. Pulses are adequate. NEUROLOGIC: Nonfocal. MUSCULOSKELETAL: Without joint swelling or deformities. The left ORIF site seems to be healing adequately. SKIN: Without rash. DATABASE: EKG is reviewed from full September 29, 2019 at 12:59 p.m., reveals a narrow complex SVT with P-waves shortly following the QRS. Subsequent EKG reveals sinus bradycardia at 57 beats per minute, still narrow QRS, no significant ST-T changes. A recurrent episode of SVT seen with PAC with prolonged NH initiating the tachycardia. LABORATORY DATA: White cell count 7.4, hemoglobin 9.4, platelet count is180. The sodium is 131, potassium 4.1, BUN 13, creatinine 0.58. BNP is troponin-I was 4.475, increased to 5.8, decreasing to 3.8. ASSESSMENT AND PLAN: Ms. Summers is a pleasant 88-year-old woman with history of hypertension, diabetes, recent ORIF due to slip and fall accident, from which she recovered well. She had history of palpitations for over a decade now, but they are usually short and self-terminating. Now, the episodes are persisting, requiring hospitalization. We discussed the potential diagnosis of AV wade reentrant tachycardia and I explained the mechanism of this arrhythmia. She understands the potential treatment options, although antiarrhythmic therapy is a potential, but due to her evident slow heart beating, possible sinus node disease, without pacemaker implantation, this will be a difficult proposition. Alternatively, the ablation procedure could be considered. I explained the procedure to her. Diagnostic EP study and likely slow pathway modification will be performed should there be additional arrhythmias and she is high risk for recurrent tachyarrhythmias. Pacer implantation could be a potential option. Risks and benefits of all these procedure were detailed including chance of infection, bleeding, pneumothorax, tamponade, device malfunction and recalls and recurrences in bradycardia. She is likely to undergo left heart catheterization prior to that by Dr. Emmanuel. Also discussed the chance of DVT related PE, especially in view of the recent surgery. She is willing to proceed. We will schedule her for near date. Thank you again for letting me participate in the care of this patient. Job ID: [id number] MTDD
[2019-10-01 11:26] LABS: Glucose 259 mg/dL (83-110)
--- NOTE | 2019-10-01 11:40 | ULT ---
BILATERAL LOWER EXTREMITY VENOUS DOPPLER: Date: 10/01/2019 PROVIDED CLINICAL HISTORY: Recent surgery. FINDINGS: Bueno scale and color Doppler sonography with spectral analysis performed of the bilateral common femo ral, femoral, popliteal, posterior tibial, greater saphenous, and profunda femoral veins, demonstrati ng a normal sonographic appearance to each. IMPRESSION: No sonographic evidence for lower extremity deep venous thrombosis. POS: [facility]
[2019-10-01] MEDS ORDERED: Communication Order-Pharmacy FS ONE (15:44)
--- NOTE | 2019-10-01 16:21 | CON ---
DATE OF CONSULTATION: HISTORY OF PRESENT ILLNESS: This is an 88-year-old lady in the hospital last week with a right hip fracture, who was transferred to rehab. She was noted to have a tachycardia over there and was transferred here, where she was found to have SVT with some dyspnea and chest pain. She had adenosine given with resolution of her SVT; however, she had recurrence and it was felt that she needed this ablated. While she was in the cathead operator, it was elected to proceed with cardiac catheterization, where she was found to have a high-grade proximal LAD and fdzyfgjs-nn-ppzcwe mid circumflex lesion. She had calcification of her coronary artery and mitral valve anulus. She had recurrent SVT in the cathead operator and underwent ablation, resumed sinus rhythm about 70. PAST MEDICAL HISTORY: Significant for: 1. Diabetes mellitus. 2. Hypertension. 3. Dyslipidemia. PAST SURGICAL HISTORY: Includes: 1. Right hip fracture about 5 years ago. 2. More recent left hip fracture. 3. The patient has also had a remote hysterectomy and tonsillectomy. REVIEW OF SYSTEMS: She lives with her son and his . She is ambulatory at home and has no mental decline issues. The son states that she is rather wobbly at home. MEDICATIONS: Listed in the chart. SOCIAL HISTORY: Otherwise, she has never smoked. PHYSICAL EXAMINATION: GENERAL: On examination, she is alert and cooperative lady with a 5 feet 4 inches, 153 pounds. NECK: No carotid bruits. CARDIAC: Regular rate and rhythm. I do not appreciate any murmurs. ABDOMEN: Soft and nontender. EXTREMITIES: She has no peripheral edema. She has palpable femoral pulses and a right posterior tibial and left popliteal pulse. LABORATORY DATA: Review of her laboratory values: Her creatinine is satisfactory. Her hemoglobin is about 10. A1c is pending. Cardiac echo shows praxphsv-py-jamizg mitral regurgitation, normal left ventricular systolic function with perhaps some mild anterior hypokinesis, and suspicion of a pulmonary hypertension. Aortic valve has decreased excursion of the leaflets. CT scan of the chest demonstrates moderate bilateral pleural effusions. BNP of about 550. ASSESSMENT AND PLAN: At this time, the patient is stable once her rhythm was controlled. We will maintain her medical management this week and anticipate coronary artery bypass grafting to the LAD and OM on Friday. Job ID: [id number]
[2019-10-01 17:23] LABS: Glucose 268 mg/dL (83-110)
[2019-10-01] MEDS: Insulin Regular 300 UNITS/3 ML VIAL SC PRN ×2 (18:10→20:29)
--- NOTE | 2019-10-01 19:38 | PRG ---
DATE OF SERVICE: 10/01/2019 SUBJECTIVE: Ms. Summers is an 88-year-old woman who underwent left hip hemiarthroplasty on 09/25/2019. She was subsequently admitted to inpatient rehabilitation from where she was transferred to [facility] Emergency Department on 09/29/2019. She was evaluated for tachycardia with heart rate in upper 150s. She was symptomatic with dyspnea and chest pain. The patient underwent cardiac catheterization yesterday. Findings, high-grade LAD and lwmqzzxm-xd-lxxhzr mid circumflex arterial lesions. She underwent radiofrequency ablation treatment for recurrent SVT, which had failed medical management. The patient was evaluated by Cardiovascular Surgery, who is contemplating a coronary artery bypass over the next few days. Today, the patient is awake and alert. She denies any chest pain, dyspnea, or syncope. Urinary output is adequate. She is tolerating diet. OBJECTIVE: VITAL SIGNS: Her vital signs currently include blood pressure 156/61, pulse is 66, respiratory rate is 14, maximum temperature in last 24 hours 99.4 degrees Fahrenheit, oxygen saturation 97% on 2 L by nasal cannula oxygen. HEENT: Pupils are equal, round, reactive to light and accommodation. NECK: No jugular venous distention noted. HEART: Reveals regular rate and rhythm. No murmurs or gallops auscultated. LUNGS: Clear to auscultation bilaterally. Her breathing is regular and nonlabored. ABDOMEN: Soft, nontender, and nondistended. NEUROLOGIC: Reveals no focal deficits present. LABORATORY FINDINGS: Include a CBC with 7100 white blood cells, hemoglobin and hematocrit 9.9 and 29.7 respectively, platelet count is 250,000. Metabolic profile; sodium 132, potassium 4.1, chloride is 99, bicarb is 23, BUN is 9, creatinine is 0.66, glucose is 103, magnesium 1.8, and phosphorus is 3.6. IMPRESSION: 1. Postoperative day #1, status post cardiac catheterization and radiofrequency pulmonary ablation. 2. Recent kym-KH-yremqem elevation myocardial infarction. 3. Resolved supraventricular tachycardia. 4. Acute hypomagnesemia. PLAN: 1. Increase activity per Physical and Occupational Therapy. 2. Correct abnormal electrolytes. 3. Discussed with Cardiology. We will increase aspirin to 325 mg daily. That will be adequate prophylaxis for the recent hips surgery. 4. If the patient is hemodynamically stable, will be transferred to telemetry at this time. Job ID: [id number]
[2019-10-01] MEDS: Latanoprost 0.005% Ophth Soln 2.5 ml Bottle EA EYE SCH (20:28)
[2019-10-01] MEDS: Melatonin 3 MG TAB PO SCH (20:29)
[2019-10-02 03:51] LABS: Hemoglobin 9.7 g/dL (12.0-16.0); Mean Corpuscular HGB CONC 33.7 g/dL (32.0-36.0); Mean Corpuscular Hemoglobin 33.1 pg (27.0-31.0); Mean Corpuscular Volume 98.3 fL (78.0-98.0); Mean Platelet Volume 8.2 fL (7.4-10.4); Platelet Count 271 thou/uL (130-400); RBC Distribution Width 13.3 % (11.5-14.5); Red Blood Cell (RBC) Count 2.92 mill/uL (4.20-5.40); White Blood Cell (WBC) Count 5.4 thou/uL (4.8-10.8)
[2019-10-02 03:56] LABS: Hemoglobin A1c 11.3 % (4.0-6.0)
[2019-10-02 04:13] LABS: Anion Gap 13 mmol/L (10-20); BUN (Urea Nitrogen) 6 mg/dL (9.8-20.1); Calc. Creatinine Clearance 63 mL/min (70-130); Calcium 7.8 mg/dL (7.8-10.44); Carbon Dioxide 26 mmol/L (23-31); Chloride 102 mmol/L (98-107); Estimated GFR-MDRD 85; Glucose 132 mg/dL (83-110); Phosphorus 3.9 mg/dL (2.3-4.7); Potassium 4.5 mmol/L (3.5-5.1); Sodium 136 mmol/L (136-145)
--- NOTE | 2019-10-02 05:39 | PRG ---
DATE OF SERVICE: 10/01/2019 SUBJECTIVE: The patient remains on the intermediate care unit, she is currently awake, alert, in no distress. The patient voices no complaints or concerns. The patient denies any shortness of breath or chest pain. The patient had transfer orders to telemetry earlier today, but there are no bed availability at this time. OBJECTIVE: VITAL SIGNS: Stable, afebrile. HEART: Sinus rhythm on the compliance monitor without any ectopy. RESPIRATORY: Bilateral breath sounds clear, respirations are even and nonlabored. PLAN: Continue supportive care. Continue telemetry monitoring. Continue to increase activity per Physical and Occupational Therapy. We will leave aspirin at [address] Solomon. Plan is for the patient to go for a coronary artery bypass graft on Friday with Dr. Solomon. Job ID: [id number]
[2019-10-02] MEDS: Insulin Regular 300 UNITS/3 ML VIAL SC PRN ×4 (05:53→22:27)
[2019-10-02] MEDS: Acetaminophen 500 MG TAB PO SCH ×3 (05:53→17:03)
--- NOTE | 2019-10-02 06:58 | PRG ---
DATE OF SERVICE: SUBJECTIVE: The patient is afebrile. Blood pressure of 130 to 150, heart rate 60 to 70, sinus rhythm. Weight recorded at 148 and she had significant diuresis yesterday, which was expected and needed given the fact that she had large bilateral pleural effusions consistent with some congestive heart failure. Her cardiac echo report is consistent with pulmonary hypertension. No comment was made regarding mitral valve regurgitation, but appeared to be at least moderate to severe when I reviewed the study. She was felt to have moderate to severe tricuspid regurgitation and moderate concentric left ventricular hypertrophy with normal overall left ventricular systolic function. She had no issues yesterday with physical therapy consisting of sitting on the side of the bed. She had no chest discomfort or arrhythmias, although she feels like she has a bubble in her chest. PLAN: At this time is for coronary bypass grafting on Friday. Job ID: [id number]
[2019-10-02] MEDS: Ascorbic Acid 500 mg Chewable Tablet PO SCH ×2 (08:53→17:03)
[2019-10-02] MEDS: cefTRIAXone\\ROCEPHIN 1 GM in Sodium Chloride 0.9% 100 ML IVPB SCH (08:53)
[2019-10-02] MEDS: Atorvastatin Calcium 40 MG TAB PO SCH (08:53)
[2019-10-02] MEDS: Aspirin 81 mg Enteric Coated Tablet PO SCH (08:53)
[2019-10-02] MEDS: Gabapentin 100 MG CAP PO SCH ×3 (08:53→21:07)
[2019-10-02] MEDS: Ferrous Sulfate 325 MG TAB PO SCH ×2 (08:53→17:03)
[2019-10-02] MEDS: guaiFENesin ER 600 MG TAB PO SCH ×2 (08:53→21:07)
[2019-10-02] MEDS: Furosemide 40 MG TAB PO SCH (08:53)
[2019-10-02] MEDS ORDERED: Aspirin 325 mg Enteric Coated Tablet PO SCH (09:00)
[2019-10-02 12:25] LABS: SARS-CoV-2 MS2 Positive; SARS-CoV-2 N Gene Negative; SARS-CoV-2 S Gene Negative; SARS-CoV-2 orf1ab Negative
--- NOTE | 2019-10-02 15:37 | PRG ---
DATE OF SERVICE: 10/02/2019 SUBJECTIVE: Ms. Summers is an 88-year-old woman, who is admitted from rehabilitation on 09/29/2019 with acute onset supraventricular tachycardia. She recently underwent a cardiac catheterization, which established significant 2-vessel disease. She underwent radiofrequency pulmonary ablation and has been in normal sinus rhythm since. This morning, she denies any problems. OBJECTIVE: VITAL SIGNS: Blood pressure 127/67, pulse 81, respiratory rate is 20, temperature 98.8 degrees Fahrenheit, oxygen saturation 99% on 2 L by nasal cannula oxygen. She slept very well last night and was enjoying her breakfast this morning. HEART: Reveals regular rate and rhythm. LUNGS: Clear to auscultation bilaterally. Breathing, regular and nonlabored. ABDOMEN: Soft, nontender, nondistended. LABORATORY FINDINGS: Today include a CBC with 5400 white blood cells, hemoglobin and hematocrit 9.7 and 28.7 respectively. Platelet count is 271,000. Metabolic profile; sodium 136, potassium 4.5, chloride is 102, bicarb is 26, BUN is 6, creatinine 0.66, glucose 132, magnesium 2.0, and phosphorus is 3.9. IMPRESSIONS: 1. SVT. The patient is in sinus rhythm, status post radiofrequency ablation. 2. Severe coronary artery disease, pending coronary arterial bypass graft soon. The patient otherwise is hemodynamically stable. Continue physical and occupational therapy. The patient will be transferred to telemetry once bed becomes available. Job ID: [id number] MTDD
[2019-10-02] MEDS: Senokot S 8.6-50 MG TAB PO SCH (21:07)
[2019-10-02] MEDS: Melatonin 3 MG TAB PO SCH (21:07)
[2019-10-02] MEDS: Latanoprost 0.005% Ophth Soln 2.5 ml Bottle EA EYE SCH (21:08)
[2019-10-03] MEDS: Acetaminophen 500 MG TAB PO SCH ×4 (00:12→17:57)
[2019-10-03] MEDS: Insulin Regular 300 UNITS/3 ML VIAL SC PRN ×3 (05:32→21:46)
[2019-10-03] MEDS: Polyethylene Glycol 3350 17 GM Packet PO SCH (08:17)
[2019-10-03] MEDS: guaiFENesin ER 600 MG TAB PO SCH ×2 (08:17→21:47)
[2019-10-03] MEDS: Furosemide 40 MG TAB PO SCH (08:17)
[2019-10-03] MEDS: Bisacodyl 10 MG SUPP PR SCH (08:17)
[2019-10-03] MEDS: Milk Of Magnesia 30 ML UDCUP PO SCH (08:17)
[2019-10-03] MEDS: Senokot S 8.6-50 MG TAB PO SCH ×2 (08:17→21:47)
[2019-10-03] MEDS: Ferrous Sulfate 325 MG TAB PO SCH ×2 (08:18→16:15)
[2019-10-03] MEDS: Aspirin 81 mg Enteric Coated Tablet PO SCH (08:18)
[2019-10-03] MEDS: Atorvastatin Calcium 40 MG TAB PO SCH (08:18)
[2019-10-03] MEDS: Ascorbic Acid 500 mg Chewable Tablet PO SCH ×2 (08:18→16:15)
[2019-10-03] MEDS: Gabapentin 100 MG CAP PO SCH ×3 (08:18→21:47)
[2019-10-03] MEDS ORDERED: Insulin Regular 300 UNITS/3 ML VIAL SC PRN (16:00)
--- NOTE | 2019-10-03 16:26 | PRG ---
DATE OF SERVICE: 10/03/2019 SUBJECTIVE: The patient was seen this morning with Dr. Penny during rounds. She was sitting up in bed with no signs of acute distress. She reported she has not gotten up out of bed yet today with Physical Therapy, but she did report that she tolerated her breakfast and slept well overnight. She is pending CABG tomorrow with Dr. Solomon. OBJECTIVE: VITAL SIGNS: Temperature 97.7, pulse 72, respirations 16, oxygen saturation 95% on 1 L nasal cannula, and blood pressure 159/68. GENERAL: Well-appearing elderly female, lying in bed with no signs of acute distress. PULMONARY: Equal chest rise and fall. Clear breath sounds bilaterally. No signs of acute respiratory distress. CARDIAC: Regular rate and rhythm. GI: Abdomen is soft, nontender, nondistended. EXTREMITIES: 2+ pulses in all extremities. Gross motor and sensation intact. No significant swelling noted. NEUROLOGIC: GCS 15. LABORATORY FINDINGS: There are no new laboratory findings to discuss. DIAGNOSTIC FINDINGS: There are no new diagnostic findings to discuss. ASSESSMENT: 1. Recent fwg-UN-zdfjrnb elevation myocardial infarction with associated supraventricular tachycardia that has now resolved. 2. Acute congestive heart failure, resolved. 3. Urinary tract infection, complicated, now treated. 4. History of left hip fracture, status post repair. 5. History of diabetes, hypertension, and hyperlipidemia. PLAN: Continue current diet and pain regimen. Continue physical and occupational therapy. N.p.o. at midnight for OR tomorrow with Dr. Solomon for a CABG. Increase insulin sliding scale for better glucose control. Continue antibiotics for urinary tract infection. Preop blood work in the morning. This patient was seen and evaluated by Dr. Penny and myself this morning during rounds. Job ID: [id number]
[2019-10-03] MEDS: Melatonin 3 MG TAB PO SCH (21:47)
[2019-10-03] MEDS: Latanoprost 0.005% Ophth Soln 2.5 ml Bottle EA EYE SCH (21:48)
[2019-10-04] MEDS: Acetaminophen 500 MG TAB PO SCH ×2 (00:12→06:00)
[2019-10-04 04:26] LABS: #Basophils 0.1 thou/uL (0.0-0.2); #Eosinphils 0.2 thou/uL (0.0-0.7); #Neutrophils 4.6 thou/uL (1.40-6.50); %Basophils 0.8 % (0.0-1.0); %Eosinophils 2.2 % (0.0-10.0); %Lymphocytes 25.3 % (21.0-51.0); %Monocytes 12.5 % (0.0-10.0); %Neutrophils 59.2 % (42.0-75.0); Hemoglobin 10.3 g/dL (12.0-16.0); Mean Corpuscular HGB CONC 33.1 g/dL (32.0-36.0); Mean Corpuscular Hemoglobin 32.8 pg (27.0-31.0); Mean Corpuscular Volume 99.3 fL (78.0-98.0); Mean Platelet Volume 8.6 fL (7.4-10.4); Platelet Count 337 thou/uL (130-400); RBC Distribution Width 13.9 % (11.5-14.5); Red Blood Cell (RBC) Count 3.15 mill/uL (4.20-5.40); White Blood Cell (WBC) Count 7.8 thou/uL (4.8-10.8)
[2019-10-04 04:33] LABS: INR-International Normal Ratio 0.9; PTT 25.2 sec (22.9-36.1); Prothrombin Time 11.9 sec (12.0-14.7)
[2019-10-04 04:50] LABS: Anion Gap 16 mmol/L (10-20); BUN (Urea Nitrogen) 9 mg/dL (9.8-20.1); Calc. Creatinine Clearance 56 mL/min (70-130); Calcium 8.2 mg/dL (7.8-10.44); Carbon Dioxide 23 mmol/L (23-31); Chloride 99 mmol/L (98-107); Estimated GFR-MDRD 80; Glucose 171 mg/dL (83-110); Magnesium 1.9 mg/dL (1.6-2.6); Phosphorus 3.4 mg/dL (2.3-4.7); Potassium 4.2 mmol/L (3.5-5.1); Sodium 134 mmol/L (136-145)
[2019-10-04] MEDS ORDERED: Midazolam HCl 2 mg/2 ml Vial ONE (06:28)
[2019-10-04] MEDS ORDERED: Fentanyl 100 MCG/2 ML VIAL ONE (06:28)
[2019-10-04] MEDS ORDERED: Albumin 5% 0 ML ONE (06:29)
[2019-10-04] MEDS ORDERED: Dexmedetomidine 200 MCG/2 ML VIAL ONE (06:29)
[2019-10-04] MEDS ORDERED: Phenylephrine 10 MG/ML VIAL ONE (06:29)
[2019-10-04] MEDS ORDERED: Insulin Regular 300 UNITS/3 ML VIAL ONE (06:39)
[2019-10-04] MEDS ORDERED: Albumin 5% 500 ML ONE (06:39)
[2019-10-04] MEDS ORDERED: Heparin 10,000 UNITS/1 ML VIAL 30,000 UNITS in Sodium Chloride 0.9% 1,000 ML FS SCH (07:00)
[2019-10-04] MEDS ORDERED: Magnesium 2 GM/50 ML 2 GM in Premix Bag 1 BAG IVPB SCH ×2 (08:00→10:45)
--- NOTE | 2019-10-04 08:18 | PDOC.CPN ---
- Subjective Date: 10/04/19 - Objective Allergies/Adverse Reactions: Allergies Allergy/AdvReac Type Severity Reaction Status Date / Time No Known Drug Allergies Allergy Verified 09/29/19 17:14 Visit Medications: Current Medications Acetaminophen (Tylenol) 1,000 mg PO Q6HR [facility] Stop: 10/04/19 08:59 Last Admin: 10/04/19 06:00 Dose: Not Given Albuterol/Ipratropium (Duoneb) 3 ml NEB Q4H PRN PRN Reason: Wheezing Stop: 10/04/19 08:59 Ascorbic Acid (Vitamin C) 500 mg PO BID[facility] Stop: 10/04/19 08:59 Last Admin: 10/03/19 16:15 Dose: 500 mg Aspirin (Ecotrin) 81 mg PO DAILY [facility] Stop: 10/04/19 08:59 Last Admin: 10/03/19 08:18 Dose: 81 mg Atorvastatin Calcium (Lipitor) 40 mg PO DAILY [facility] Stop: 10/04/19 08:59 Last Admin: 10/03/19 08:18 Dose: 40 mg Bisacodyl (Dulcolax) 10 mg ME DAILY [facility] Last Admin: 10/03/19 08:17 Dose: 10 mg Dextrose/Water (Dextrose 50%) 25 gm SLOW IVP PRN PRN PRN Reason: Hypoglycemia Stop: 10/04/19 08:59 Ferrous Sulfate (Feosol) 325 mg PO BID-[facility] Stop: 10/04/19 08:59 Last Admin: 10/03/19 16:15 Dose: 325 mg Furosemide (Lasix) 40 mg PO DAILY-[facility] Stop: 10/04/19 08:59 Last Admin: 10/03/19 08:17 Dose: 40 mg Gabapentin (Neurontin) 100 mg PO TID [facility] Stop: 10/04/19 08:59 Last Admin: 10/03/19 21:47 Dose: 100 mg Glucagon (Glucagon) 1 mg IM PRN PRN PRN Reason: Hypoglycemia Stop: 10/04/19 08:59 Guaifenesin (Mucinex) 600 mg PO Q12HR [facility] Stop: 10/04/19 08:59 Last Admin: 10/03/19 21:47 Dose: 600 mg Hydralazine HCl (Apresoline) 10 mg SLOW IVP Q4H PRN PRN Reason: SBP > 170 or DBP > 100 Stop: 10/04/19 08:59 Dextrose/Water (D5w) 1,000 mls @ 0 mls/hr IV .Q0M PRN PRN Reason: Hypoglycemia Stop: 10/04/19 08:59 Heparin Sodium (Porcine) 30, (000 units/ Sodium Chloride) 1,003 mls @ 0 mls/hr FS WILLCALL [facility] Stop: 10/04/19 09:00 Magnesium Sulfate 2 gm/ Device 50 mls @ 50 mls/hr IVPB NOW [facility] Stop: 10/04/19 10:00 Sodium Phosphate 15 mmol/ (Sodium Chloride) 255 mls @ 42.5 mls/hr IVPB NOW [facility] Stop: 10/04/19 14:30 Insulin Human Regular (Humulin R) 0 units SC .BEDTIME SLIDING SC PRN; Protocol PRN Reason: BEDTIME SLIDING SCALE Last Admin: 10/03/19 21:46 Dose: 2 units Insulin Human Regular (Humulin R) 0 units SC .MODERATE SLIDING SC PRN PRN Reason: Moderate Correctional Scale Latanoprost (Xalatan 0.005% [facility]) 1 drop [facility] Stop: 10/04/19 08:59 Last Admin: 10/03/19 21:48 Dose: 1 drop Magnesium Hydroxide (Milk Of Magnesium) 30 ml PO DAILY [facility] Last Admin: 10/03/19 08:17 Dose: 30 ml Melatonin (Melatonin) 3 mg PO [facility] Stop: 10/04/19 08:59 Last Admin: 10/03/19 21:47 Dose: 3 mg Ondansetron HCl (Zofran) 4 mg IVP Q6H PRN PRN Reason: Nausea Stop: 10/04/19 08:59 Pantoprazole Sodium (Protonix) 40 mg PO DAILY [facility] Stop: 10/04/19 08:59 Last Admin: 10/03/19 08:18 Dose: 40 mg Polyethylene Glycol (Miralax) 17 gm PO DAILY [facility] Last Admin: 10/03/19 08:17 Dose: 17 gm Senna/Docusate Sodium (Senokot S) 2 tab PO BID [facility] Last Admin: 10/03/19 21:47 Dose: 2 tab Sodium Chloride (Flush - Normal Saline) 10 ml IVF PRN PRN PRN Reason: Saline Flush Stop: 10/04/19 08:59 Last Admin: 10/03/19 21:47 Dose: 10 ml Tramadol HCl (Ultram) 50 mg PO Q6H PRN PRN Reason: Moderate to Severe Pain (6-10) Stop: 10/04/19 08:59 Vital Signs & Weight: Vital Signs Temp Pulse Resp BP Pulse Ox 10/04/19 03:26 97.8 F 86 16 135/60 94 L Weight 140 lb 4.8 oz - Physical Exam General: alert & oriented x3 Neck: no masses, no bruit Cardiac: no murmur, regular rate Lungs: normal exam Neuro: grossly intact Abdomen: non-tender, no masses - Labs Result Diagrams: 10/04/19 03:20 10/04/19 03:20 Troponin/CKMB CK-MB (CK-2) 12.4 ng/mL (0-6.6) H* 09/29/19 13:11 Troponin I 3.824 ng/mL (< 0.028) H* 09/29/19 22:06 - Assessment/Plan Assessment/Plan: Severe CAD SVT Recent hip fracture Plan on CABG today No BB, CCB secondary to bradycardia No recurrent episodes of SVT after recetn ablation Moderate MR noted on recent echo with heavily calcified MV
[2019-10-04] MEDS ORDERED: Sodium Phosphate 15 MMOL in Sodium Chloride 0.9% 250 ML 250 ML IVPB SCH (08:30)
[2019-10-04] MEDS ORDERED: Post-Op Insulin Drip Protocol IVPB PRN (10:44)
[2019-10-04] MEDS ORDERED: DOPamine 400 MG/D5W 250 ML 250 ML IVPB PRN (10:44)
[2019-10-04] MEDS ORDERED: Ondansetron PF 4 MG/2 ML Vial IVP PRN (10:44)
[2019-10-04] MEDS ORDERED: Bisacodyl 10 MG SUPP PR PRN (10:44)
[2019-10-04] MEDS ORDERED: Norepinephrine 8 MG/0.9% NS 250 ML IVPB PRN (10:44)
[2019-10-04] MEDS ORDERED: Nitroglycerin 50 MG/250 ML BOT 250 ML IVPB PRN (10:44)
[2019-10-04] MEDS ORDERED: HYDROcodone/Acetaminophen 5/325 mg Tablet PO PRN ×2 (10:44)
[2019-10-04] MEDS ORDERED: niCARdipine 25 MG in Sodium Chloride 0.9% 250 ML 250 ML IVPB PRN (10:44)
[2019-10-04] MEDS ORDERED: Bisacodyl 5 MG TAB PO PRN (10:44)
[2019-10-04] MEDS ORDERED: Potassium Chloride 20 MEQ/100 ML PREMIX BAG IVPB PRN (10:44)
[2019-10-04] MEDS ORDERED: Mag-Al 1200 mg/1200 mg/30 ML UDCUP PO PRN (10:44)
[2019-10-04] MEDS ORDERED: Guaifenesin DM 100-10/5 ML UDCUP PO PRN (10:44)
[2019-10-04] MEDS ORDERED: hydrALAZINE 20 MG/ML VIAL SLOW IVP PRN (10:44)
[2019-10-04] MEDS ORDERED: Hetastarch 6% 500 ML 500 ML IVPB PRN (10:44)
[2019-10-04] MEDS ORDERED: Acetaminophen 325 MG TAB PO PRN (10:44)
[2019-10-04] MEDS ORDERED: Morphine 2 MG/ML SYRINGE SLOW IVP PRN (10:44)
[2019-10-04] MEDS ORDERED: Promethazine HCl 25 MG/ML VIAL IM PRN (10:44)
[2019-10-04] MEDS ORDERED: Fentanyl 100 MCG/2 ML VIAL SLOW IVP PRN ×2 (10:44)
[2019-10-04] MEDS ORDERED: Dextrose 50% Abboject 50 ML SYRINGE SLOW IVP PRN (10:55)
[2019-10-04] MEDS ORDERED: HUMULIN R 100 UNITS in Sodium Chloride 0.9% 100 ML IVPB SCH (10:55)
[2019-10-04] MEDS ORDERED: Insulin Regular 300 UNITS/3 ML VIAL SC PRN (10:55)
[2019-10-04] MEDS ORDERED: Dextrose 5% in Water 1,000 ML IV PRN (10:55)
[2019-10-04] MEDS ORDERED: Rocuronium Bromide 10 MG/ML (10ML VIAL) ONE (11:01)
[2019-10-04] MEDS ORDERED: Nitroglycerin 50 MG/250 ML BOT ONE (11:01)
[2019-10-04] MEDS ORDERED: Aminocaproic Acid 5 GM/20 ML VIAL ONE (11:01)
[2019-10-04] MEDS ORDERED: Thrombin 5000 UNITS/5 ML VIAL ONE (11:01)
[2019-10-04] MEDS ORDERED: Heparin 30,000 units/30 ml VIAL ONE (11:01)
[2019-10-04] MEDS ORDERED: Cardioplegic Soln 1,000 ML BAG ONE (11:01)
[2019-10-04] MEDS ORDERED: Ondansetron PF 4 MG/2 ML Vial ONE (11:01)
[2019-10-04] MEDS ORDERED: Ketorolac Tromethamine 30 MG/ML VIAL ONE (11:01)
[2019-10-04] MEDS ORDERED: Sodium Bicarb 50 MEQ/50 ML Abboject 8.4% SYRINGE ONE (11:01)
[2019-10-04] MEDS ORDERED: Glycopyrrolate 0.2 MG/ML 5 ML SYRINGE ONE (11:01)
[2019-10-04] MEDS ORDERED: PROPOFOL 200 MG/20 ML VIAL ONE (11:01)
[2019-10-04] MEDS ORDERED: Magnesium Sulfate 1 GM/2 ML VIAL ONE (11:01)
[2019-10-04] MEDS ORDERED: Lidocaine 2% PF 5 ML VIAL ONE (11:01)
[2019-10-04] MEDS ORDERED: Protamine Sulfate 250 MG/25 ML VIAL ONE (11:01)
[2019-10-04] MEDS ORDERED: Dexamethasone 20 MG/5 ML VIAL ONE (11:01)
[2019-10-04] MEDS ORDERED: PHENYLEPHRINE-NS 100 MCG/ML 10 ML SYRINGE ONE (11:01)
[2019-10-04] MEDS ORDERED: Calcium Chloride 1 GM/10 ML Abboject SYRINGE ONE (11:01)
[2019-10-04] MEDS ORDERED: Potassium Chloride 60 MEQ/30 ML VIAL ONE (11:01)
[2019-10-04] MEDS ORDERED: Heparin 5,000 UNITS/ML VIAL ONE (11:01)
[2019-10-04] MEDS ORDERED: Papaverine 60 MG/2 ML VIAL ONE (11:01)
[2019-10-04] MEDS ORDERED: Lidocaine 1% PF 5 ML VIAL ONE (11:01)
[2019-10-04] MEDS: Ascorbic Acid 500 mg Chewable Tablet PO SCH (11:36)
[2019-10-04] MEDS: Furosemide 40 MG TAB PO SCH (11:36)
[2019-10-04] MEDS: Ferrous Sulfate 325 MG TAB PO SCH (11:36)
[2019-10-04] MEDS: Lactated Ringer's 1,000 ML IV SCH (11:41)
[2019-10-04 11:56] LABS: #Eosinphils 0.1 thou/uL (0.0-0.7); #Monocytes 0.8 thou/uL (0.11-0.59); #Neutrophils 11.4 thou/uL (1.40-6.50); %Basophils 0.2 % (0.0-1.0); %Lymphocytes 7.6 % (21.0-51.0); %Neutrophils 85.2 % (42.0-75.0); Hemoglobin 10.1 g/dL (12.0-16.0); Mean Corpuscular HGB CONC 33.1 g/dL (32.0-36.0); Mean Corpuscular Hemoglobin 31.3 pg (27.0-31.0); Mean Corpuscular Volume 94.6 fL (78.0-98.0); Mean Platelet Volume 8.1 fL (7.4-10.4); Platelet Count 263 thou/uL (130-400); RBC Distribution Width 15.1 % (11.5-14.5); Red Blood Cell (RBC) Count 3.24 mill/uL (4.20-5.40); White Blood Cell (WBC) Count 13.4 thou/uL (4.8-10.8)
[2019-10-04 12:00] LABS: INR-International Normal Ratio 1.3; PTT 30.4 sec (22.9-36.1); Prothrombin Time 16.5 sec (12.0-14.7)
[2019-10-04 12:12] LABS: Anion Gap 10 mmol/L (10-20); BUN (Urea Nitrogen) 7 mg/dL (9.8-20.1); Calc. Creatinine Clearance 67 mL/min (70-130); Calcium 6.7 mg/dL (7.8-10.44); Carbon Dioxide 25 mmol/L (23-31); Chloride 107 mmol/L (98-107); Estimated GFR-MDRD Greater than 90; Glucose 130 mg/dL (83-110); Potassium 4.1 mmol/L (3.5-5.1); Sodium 138 mmol/L (136-145)
--- NOTE | 2019-10-04 12:22 | RAD ---
PORTABLE UPRIGHT FRONTAL CHEST RADIOGRAPH: Date: 10/04/2019 COMPARISON: 09/30/2019. HISTORY: Evaluate chest following open heart surgery. FINDINGS: The patient has undergone interval midline sternotomy. There is a right-sided vascular catheter with distal tip overlying the expected location of the inferior aspect of right atrium near junction with IVC. Epicardial pacing leads are noted. Drainage catheters overlie the mediastinum and both lung base s. There is partial consolidation/collapse of the left lower lobe, and there is mild pulmonary vascul ar congestion. IMPRESSION: Postoperative changes as detailed above. Increased density in the left base for which follow-up is ad vised. POS: [facility]
--- NOTE | 2019-10-04 13:22 | OP ---
DATE OF PROCEDURE: 10/04/2019 PREOPERATIVE DIAGNOSES: 1. Coronary artery disease. 2. Congestive heart failure. PROCEDURE PERFORMED: Coronary artery bypass graft x2, left internal mammary artery to a 1.5-mm left anterior descending and saphenous vein graft to a 2-mm obtuse marginal. SOIL ENGINEER: Dr. Gunter. TRANSFUSION: None. FINDINGS: The patient had about 500 to 600 mL of bilateral pleural effusions. The targets were good. Conduit was good. DESCRIPTION OF PROCEDURE: After adequate anesthesia had been obtained, Dr. Gunter performed an open vein harvest on the left thigh while I performed a median sternotomy. Right pleura was entered distally with the saw. Left internal mammary artery was harvested, widely opening the left pleura. Following this, the patient was heparinized. The mammary divided distally, treated with papaverine and passed posterior to the thymus gland. Aorta and right atrium were cannulated and cardiopulmonary bypass was begun. Cross-clamp was applied and after a liter of cold blood cardioplegia, distal anastomoses were completed, following which the cross-clamp was removed and the partial occluding clamp was placed and a single proximal anastomosis was performed. The patient had idioventricular rhythm at that point and temporary atrial pacing wires were placed; however, the atrium would not pace. Ventricular wires were placed and the patient was ventricularly paced and weaned from cardiopulmonary bypass. Cannulas were removed and protamine was given systemically. Following that, the patient was able to be atrially paced without ventricular pacing, and mediastinal and bilateral pleural drains were placed. The sternum was then reapproximated with #7 interrupted wire using vancomycin paste on the sternal edges, platelet-rich blood and platelet-poor plasma. Subcutaneous tissue and skin were closed in layers. The patient had 2 units of packed red cells and one platelet pack at the conclusion of the procedure. Job ID: [id number]
--- NOTE | 2019-10-04 13:54 | PDOC.EP ---
- Subjective Date: 10/04/19 Time: 13:52 Interval History: S/P CABG today. No SVT post ablation 10/01/19. - Review of Systems ROS unobtainable: due to mental status (post CABG today. Still sedated.) - Objective Allergies/Adverse Reactions: Allergies Allergy/AdvReac Type Severity Reaction Status Date / Time No Known Drug Allergies Allergy Verified 09/29/19 17:14 Current Medications Acetaminophen (Tylenol) 650 mg PO Q6H PRN PRN Reason: Headache/Fever Or Mild Pain Hydrocodone Bitart/Acetaminophen ([place] 5/325) 1 tab PO Q4H PRN PRN Reason: Moderate Pain (4-6) Hydrocodone Bitart/Acetaminophen ([place] 5/325) 2 tab PO Q4H PRN PRN Reason: Severe Pain (7-10) Al Hydroxide/Mg Hydroxide (Maalox) 30 ml PO Q4H PRN PRN Reason: Indigestion Albumin Human (Albumin 5%) 12.5 gm IVPB Q6H PRN PRN Reason: To Maintain SBP> 90 mmHG Stop: 10/05/19 10:45 Albumin Human (Albumin 5%) 25 gm IVPB Q6H PRN PRN Reason: To Maintain SBP > 90 mmHG Stop: 10/05/19 10:45 Albuterol/Ipratropium (Duoneb) 3 ml NEB Q6H PRN PRN Reason: SHORTNESS OF BREATH Aspirin (Aspirin) 325 mg PO DAILY EMILY Bisacodyl (Dulcolax) 10 mg PO Q12H PRN PRN Reason: Constipation Bisacodyl (Dulcolax) 10 mg NE Q12H PRN PRN Reason: Constipation Dextrose/Water (Dextrose 50%) 25 gm SLOW IVP PRN PRN PRN Reason: PER HYPOGLYCEMIC PROTOCOL Famotidine (Pepcid) 20 mg SLOW IVP Q12HR EMILY Fentanyl (Sublimaze) 25 mcg SLOW IVP Q2H PRN PRN Reason: Moderate Pain (4-6) Stop: 10/06/19 10:37 Fentanyl (Sublimaze) 50 mcg SLOW IVP Q2H PRN PRN Reason: Severe Pain (7-10) Stop: 10/06/19 10:37 Glucagon (Glucagon) 1 mg SC PRN PRN PRN Reason: PER HYPOGLYCEMIC PROTOCOL Guaifenesin/Dextromethorphan (Robitussin Dm) 15 ml PO Q4H PRN PRN Reason: Cough Hydralazine HCl (Apresoline) 10 mg SLOW IVP Q6H PRN PRN Reason: To Maintain SBP< 140mmHG Cefazolin Sodium/Dextrose 2 gm (/ Device) 50 mls @ 100 mls/hr IVPB 0000,0800, 1600 EMILY Stop: 10/05/19 08:29 Dopamine HCl/Dextrose (Dopamine 400 Mg/D5w 250 Ml) 250 mls @ 0 mls/hr IVPB PRN PRN; Protocol PRN Reason: To maintain SBP > 90 mmHG Hetastarch/Sodium Chloride (Hespan) 500 mls @ 0 mls/hr IVPB PRN PRN PRN Reason: To Maintain SBP > 90mmHg Stop: 10/05/19 10:37 Lactated Ringer's (Lactated Ringer's) 1,000 mls @ 50 mls/hr IV .Q20H EMILY Last Admin: 10/04/19 11:41 Dose: 1,000 mls Norepinephrine Bitartrate (Levophed) 250 mls @ 0 mls/hr IVPB PRN PRN; Protocol PRN Reason: To maintain SBP > 90 mmHG Nicardipine HCl 25 mg/ Sodium (Chloride) 260 mls @ 0 mls/hr IVPB INF PRN; Protocol PRN Reason: To Maintain SBP< 140mmHG Nitroglycerin/Dextrose (Nitroglycerin 50 Mg/250 Ml Bot) 250 mls @ 0 mls/hr IVPB PRN PRN; Protocol PRN Reason: To Maintain SBP< 140mmHG Insulin Human Regular 100 (units/ Sodium Chloride) 101 mls @ 0 mls/hr IVPB INF EMILY; Protocol Dextrose/Water (D5w) 1,000 mls @ 0 mls/hr IV INF PRN PRN Reason: PRN HYPOGLYCEMIC PROTOCOL Insulin Glargine (Lantus) 0 units SC ONE PRN PRN Reason: PER OPEN HEART ORDERS Stop: 10/08/19 10:56 Insulin Human Regular (Humulin R) 0 units SC Q4H PRN; Protocol PRN Reason: POST OP SLIDING SCALE Last Admin: 10/04/19 12:51 Dose: 2 units Miscellaneous Medication (Post-Op Insulin Drip Protocol) 1 each IVPB PRN PRN PRN Reason: CRITERIA Morphine Sulfate (Morphine) 2 mg SLOW IVP Q15MIN PRN PRN Reason: Severe Pain (7-10) Ondansetron HCl (Zofran) 4 mg IVP Q6H PRN PRN Reason: Nausea/Vomiting Polyethylene Glycol (Miralax) 17 gm PO DAILY EMILY Potassium Chloride (Kcl) 20 meq IVPB PRN PRN PRN Reason: K level </= 4.0 Promethazine HCl (Phenergan) 6.25 mg IM Q4H PRN PRN Reason: Nausea/Vomiting Vital Signs & Weight: Vital Signs Temp Pulse Resp BP Pulse Ox 10/04/19 12:37 96 10/04/19 12:00 97.6 F 10/04/19 11:11 96 10/04/19 03:26 97.8 F 86 16 135/60 94 L Weight 140 lb 4.8 oz I/O: I/O 10/03/19 10/04/19 10/05/19 06:59 06:59 06:59 Intake Total 1580 1200 0 Output Total 1650 2125 370 Balance -70 -925 -370 - Medication Contraindications No Anticoagulant reason: Medical contraindication (S/P CABG today.) - Physical Exam General: appears well, no apparent distress, affect appropriate (S/P CABG today. 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 (2) NSTEMI (non-ST elevated myocardial infarction) Code(s): I21.4 - NON-ST ELEVATION (NSTEMI) MYOCARDIAL INFARCTION (3) CAD (coronary artery disease), [place] coronary artery Code(s): I25.10 - ATHSCL HEART DISEASE OF [place] CORONARY ARTERY W/O ANG PCTRS Qualifiers: [place] vs. transplanted heart: [place] heart Associated angina: with stable angina Qualified Code(s): I25.118 - Atherosclerotic heart disease of [place] coronary artery with other forms of angina pectoris Assessment and Plan: S/P CABG today. STABLE - Assessment/Plan Assessment/Plan: sTABLE POST ABLATION/CABG. Tendency for bradycardia. Not on B B, still A paced via temp wires. Monitor.
[2019-10-04] MEDS: CEFAZOLIN 2 GM in Premix Bag 1 BAG IVPB SCH ×2 (15:36→23:04)
[2019-10-04 16:38] LABS: Hemoglobin 11.4 g/dL (12.0-16.0)
[2019-10-04 16:51] LABS: Potassium 3.8 mmol/L (3.5-5.1)
--- NOTE | 2019-10-04 17:52 | EKG ---
Test Reason : POST CABG Blood Pressure : / mmHG Vent. Rate : 066 BPM Atrial Rate : 066 BPM P-R Int : 148 ms QRS Dur : 076 ms QT Int : 438 ms P-R-T Axes : 060 006 058 degrees QTc Int : 459 ms Normal sinus rhythm Nonspecific ST and T wave abnormality Abnormal ECG When compared with ECG of 29-SEP-2019 13:44, (Unconfirmed) Criteria for Septal infarct are no longer Present QT has lengthened Confirmed by WENDY WHYTE, DR. Otero ([id number]) on 10/04/2019 5:52:05 PM Referred By: GISELE Confirmed By:DR. Branden NGUYEN MD
--- NOTE | 2019-10-04 18:27 | PRG ---
DATE OF SERVICE: 10/04/2019 SUBJECTIVE: The patient was seen today postoperatively. She is postop day #0, status post CABG by Dr. Solomon. Upon my evaluation, the patient was in the CCU. She was resting comfortably in bed and easily arousable. She was asking for ice chips, swallowing those without difficulties. Nursing at the bedside reports the patient is being atrially paced since she came back from the OR. Right-sided chest tube has serosanguineous output and is hooked up to suction. Dr. Solomon at bedside evaluated the patient. He has also placed postop orders, for which the nurse is following. The patient reports pain is well controlled, essentially only complaining of pain in her left shoulder. OBJECTIVE: VITAL SIGNS: Temperature 98.1, pulse 72, respirations 25, oxygen saturation 98% on 2 L nasal cannula, and blood pressure 96/52. GENERAL: Elderly female, lying in bed with no signs of acute distress. PULMONARY: Equal chest rise and fall. Clear breath sounds bilaterally. Right-sided chest tube to suction with serosanguineous output in canister. No signs of acute respiratory distress. CARDIAC: Regular rate and rhythm. She is being atrially paced at the time of my evaluation with rate in the low 70s. ABDOMEN: Soft, nontender, nondistended. EXTREMITIES: 2+ pulses in all extremities. Gross motor and sensation intact. No significant swelling noted. NEURO: GCS is 15. LABORATORY FINDINGS: White count 7.8, hemoglobin 10.3, hematocrit 31.2, platelets 13.9. Sodium 134, potassium 4.2, chloride 99, bicarb 23, BUN 9, creatinine 0.69, glucose 171, phosphorus 3.9, magnesium 1.9. DIAGNOSTIC FINDINGS: There are no new diagnostic findings to report. ASSESSMENT: 1. Postop day #0, status post CABG by Dr. Solomon. 2. Atrial fibrillation with associated acute heart failure, now resolved. 3. Urinary tract infection, status post antibiotics. 4. Previous left hip fracture, stable. 5. History of diabetes, hypertension, and hyperlipidemia. PLAN: Continue postop diet per Dr. Solomon. Repeat blood work in the morning. Before the OR, the patient received electrolyte replacement today. She will remain in the ICU and be moved when deemed appropriate by Dr. Solomon. Trauma will continue to follow his recommendations at this time. Job ID: [id number]
[2019-10-04] MEDS: Bisacodyl 10 MG SUPP PR SCH (19:35)
[2019-10-04] MEDS: Milk Of Magnesia 30 ML UDCUP PO SCH (19:35)
[2019-10-04] MEDS: Senokot S 8.6-50 MG TAB PO SCH (19:36)
[2019-10-04] MEDS: Polyethylene Glycol 3350 17 GM Packet PO SCH (19:36)
[2019-10-04] MEDS ORDERED: Famotidine/PF 20 mg/2ml Vial SLOW IVP SCH (21:00)
--- NOTE | 2019-10-04 23:30 | PRG ---
DATE OF SERVICE: 10/04/2019 SUBJECTIVE: The patient was seen in the critical care unit. She is postop day #0, status post CABG by Dr. Solomon. The patient is currently resting comfortably, in no acute distress. OBJECTIVE: VITAL SIGNS: Stable, afebrile. PLAN: Continue postop orders per Dr. Solomon. Physical and occupational therapy once ready from a cardiovascular standpoint. The patient is weightbearing as tolerated in all extremities. Trauma will continue to follow at this time. Job ID: [id number]
[2019-10-05 03:23] LABS: %Eosinophils 0.1 % (0.0-10.0); %Monocytes 8.9 % (0.0-10.0); %Neutrophils 82.8 % (42.0-75.0); Hemoglobin 11.2 g/dL (12.0-16.0); Mean Corpuscular Hemoglobin 32.3 pg (27.0-31.0); Mean Corpuscular Volume 94.7 fL (78.0-98.0); Mean Platelet Volume 7.9 fL (7.4-10.4); Platelet Count 314 thou/uL (130-400); RBC Distribution Width 16.2 % (11.5-14.5); Red Blood Cell (RBC) Count 3.47 mill/uL (4.20-5.40); White Blood Cell (WBC) Count 13.9 thou/uL (4.8-10.8)
[2019-10-05 03:24] LABS: #Lymphocytes 1.1 thou/uL (1.20-3.40); #Monocytes 1.2 thou/uL (0.11-0.59); #Neutrophils 11.5 thou/uL (1.40-6.50); %Basophils 0.1 % (0.0-1.0)
[2019-10-05 03:41] LABS: Anion Gap 13 mmol/L (10-20); BUN (Urea Nitrogen) 8 mg/dL (9.8-20.1); Calc. Creatinine Clearance 60 mL/min (70-130); Calcium 7.6 mg/dL (7.8-10.44); Carbon Dioxide 22 mmol/L (23-31); Chloride 106 mmol/L (98-107); Estimated GFR-MDRD 86; Glucose 137 mg/dL (83-110); Potassium 4.4 mmol/L (3.5-5.1); Sodium 137 mmol/L (136-145)
--- NOTE | 2019-10-05 07:32 | PDOC.CPN ---
- Subjective Date: 10/05/19 Time: 17:03 Interval history: Doing well s/p CABG Seen sitting up in chair CT in place - Objective Allergies/Adverse Reactions: Allergies Allergy/AdvReac Type Severity Reaction Status Date / Time No Known Drug Allergies Allergy Verified 09/29/19 17:14 Visit Medications: Current Medications Acetaminophen (Tylenol) 650 mg PO Q6H PRN PRN Reason: Headache/Fever Or Mild Pain Hydrocodone Bitart/Acetaminophen ([place] 5/325) 1 tab PO Q4H PRN PRN Reason: Moderate Pain (4-6) Hydrocodone Bitart/Acetaminophen ([place] 5/325) 2 tab PO Q4H PRN PRN Reason: Severe Pain (7-10) Last Admin: 10/05/19 05:20 Dose: 2 tab Al Hydroxide/Mg Hydroxide (Maalox) 30 ml PO Q4H PRN PRN Reason: Indigestion Albumin Human (Albumin 5%) 12.5 gm IVPB Q6H PRN PRN Reason: To Maintain SBP> 90 mmHG Stop: 10/05/19 10:45 Last Admin: 10/04/19 16:47 Dose: 12.5 gm Albumin Human (Albumin 5%) 25 gm IVPB Q6H PRN PRN Reason: To Maintain SBP > 90 mmHG Stop: 10/05/19 10:45 Albuterol/Ipratropium (Duoneb) 3 ml NEB Q6H PRN PRN Reason: SHORTNESS OF BREATH Aspirin (Aspirin) 325 mg PO DAILY EMILY Bisacodyl (Dulcolax) 10 mg PO Q12H PRN PRN Reason: Constipation Bisacodyl (Dulcolax) 10 mg NV Q12H PRN PRN Reason: Constipation Dextrose/Water (Dextrose 50%) 25 gm SLOW IVP PRN PRN PRN Reason: PER HYPOGLYCEMIC PROTOCOL Famotidine (Pepcid) 20 mg SLOW IVP Q12HR EMILY Last Admin: 10/04/19 19:57 Dose: 20 mg Fentanyl (Sublimaze) 25 mcg SLOW IVP Q2H PRN PRN Reason: Moderate Pain (4-6) Stop: 10/06/19 10:37 Last Admin: 10/04/19 19:42 Dose: 25 mcg Fentanyl (Sublimaze) 50 mcg SLOW IVP Q2H PRN PRN Reason: Severe Pain (7-10) Stop: 10/06/19 10:37 Last Admin: 10/04/19 23:04 Dose: 50 mcg Glucagon (Glucagon) 1 mg SC PRN PRN PRN Reason: PER HYPOGLYCEMIC PROTOCOL Guaifenesin/Dextromethorphan (Robitussin Dm) 15 ml PO Q4H PRN PRN Reason: Cough Hydralazine HCl (Apresoline) 10 mg SLOW IVP Q6H PRN PRN Reason: To Maintain SBP< 140mmHG Cefazolin Sodium/Dextrose 2 gm (/ Device) 50 mls @ 100 mls/hr IVPB 0000,0800, 1600 EMILY Stop: 10/05/19 08:29 Last Admin: 10/04/19 23:04 Dose: 50 mls Dopamine HCl/Dextrose (Dopamine 400 Mg/D5w 250 Ml) 250 mls @ 0 mls/hr IVPB PRN PRN; Protocol PRN Reason: To maintain SBP > 90 mmHG Hetastarch/Sodium Chloride (Hespan) 500 mls @ 0 mls/hr IVPB PRN PRN PRN Reason: To Maintain SBP > 90mmHg Stop: 10/05/19 10:37 Lactated Ringer's (Lactated Ringer's) 1,000 mls @ 50 mls/hr IV .Q20H EMILY Last Admin: 10/04/19 11:41 Dose: 1,000 mls Norepinephrine Bitartrate (Levophed) 250 mls @ 0 mls/hr IVPB PRN PRN; Protocol PRN Reason: To maintain SBP > 90 mmHG Nicardipine HCl 25 mg/ Sodium (Chloride) 260 mls @ 0 mls/hr IVPB INF PRN; Protocol PRN Reason: To Maintain SBP< 140mmHG Nitroglycerin/Dextrose (Nitroglycerin 50 Mg/250 Ml Bot) 250 mls @ 0 mls/hr IVPB PRN PRN; Protocol PRN Reason: To Maintain SBP< 140mmHG Insulin Human Regular 100 (units/ Sodium Chloride) 101 mls @ 0 mls/hr IVPB INF EMILY; Protocol Last Admin: 10/04/19 16:00 Dose: 101 mls Dextrose/Water (D5w) 1,000 mls @ 0 mls/hr IV INF PRN PRN Reason: PRN HYPOGLYCEMIC PROTOCOL Insulin Glargine (Lantus) 0 units SC ONE PRN PRN Reason: PER OPEN HEART ORDERS Stop: 10/08/19 10:56 Insulin Human Regular (Humulin R) 0 units SC Q4H PRN; Protocol PRN Reason: POST OP SLIDING SCALE Last Admin: 10/04/19 12:51 Dose: 2 units Miscellaneous Medication (Post-Op Insulin Drip Protocol) 1 each IVPB PRN PRN PRN Reason: CRITERIA Morphine Sulfate (Morphine) 2 mg SLOW IVP Q15MIN PRN PRN Reason: Severe Pain (7-10) Ondansetron HCl (Zofran) 4 mg IVP Q6H PRN PRN Reason: Nausea/Vomiting Polyethylene Glycol (Miralax) 17 gm PO DAILY EMILY Potassium Chloride (Kcl) 20 meq IVPB PRN PRN PRN Reason: K level </= 4.0 Last Admin: 10/04/19 16:55 Dose: 20 meq Promethazine HCl (Phenergan) 6.25 mg IM Q4H PRN PRN Reason: Nausea/Vomiting Vital Signs & Weight: Vital Signs Temp Pulse Ox 10/05/19 07:00 98.5 F 10/05/19 04:00 97.8 F 10/05/19 00:00 97.5 F L 10/04/19 20:00 97 Weight 152 lb 8.958 oz - Medication Contraindications No Anticoagulant reason: Medical contraindication (S/P CABG today.) - Physical Exam General: no apparent distress Neck: no masses, no bruit Cardiac: regular rate, regular rhythm Lungs: normal exam Neuro: grossly intact - Labs Result Diagrams: 10/05/19 03:10 10/05/19 03:00 Troponin/CKMB CK-MB (CK-2) 12.4 ng/mL (0-6.6) H* 09/29/19 13:11 Troponin I 3.824 ng/mL (< 0.028) H* 09/29/19 22:06 - Assessment/Plan Assessment/Plan: Severe CAD SVT Recent hip fracture REC 10/04 doing well BB, statin, ASA IS and PT Up to chair TID 10/03 Plan on CABG today No BB, CCB secondary to bradycardia No recurrent episodes of SVT after recetn ablation Moderate MR noted on recent echo with heavily calcified MV
[2019-10-05] MEDS ORDERED: Mineral Oil ENEMA PR PRN (07:35)
[2019-10-05] MEDS ORDERED: Nitroglycerin 0.4 MG TAB (25 Tab Bottle) SL PRN (07:35)
--- NOTE | 2019-10-05 07:47 | RAD ---
Chest one view HISTORY: Chest surgery. Follow-up. COMPARISON: 10/04/2019. FINDINGS: Cardiac silhouette is magnified by projection. Pulmonary vasculature remains upper limits o f normal. Mediastinum is midline with postoperative changes and a right subclavian central venous catheter. Bilateral thoracostomy tubes remain in place. No evidence of pneumothorax. Ill-defined parenchymal opacity/volume loss at the lung bases is unchanged. No evidence of pneumothorax. front desk monitor leads overlie the chest. IMPRESSION : Stable postoperative appearance of the chest.
[2019-10-05] MEDS: CEFAZOLIN 2 GM in Premix Bag 1 BAG IVPB SCH (07:49)
[2019-10-05] MEDS ORDERED: Dextrose 5% in Water 1,000 ML IV PRN (07:56)
[2019-10-05] MEDS ORDERED: Dextrose 50% Abboject 50 ML SYRINGE SLOW IVP PRN (07:56)
[2019-10-05] MEDS ORDERED: Insulin Regular 300 UNITS/3 ML VIAL SC PRN (07:56)
[2019-10-05] MEDS: Polyethylene Glycol 3350 17 GM Packet PO SCH (08:18)
[2019-10-05] MEDS: Aspirin 325 MG TAB PO SCH (08:18)
[2019-10-05] MEDS: Lactated Ringer's 1,000 ML IV SCH (10:07)
--- NOTE | 2019-10-05 10:29 | PDOC.EP ---
- Subjective Date: 10/05/19 Time: 08:00 Interval History: Status post EP study with SVT ablation 09/30/2019. CABG 10/01/2019. she is sitting in the chair bedside. She does report some post bypass pain. She denies any heart racing, palpitations, syncope near syncope, stroke or stroke-like symptoms. Epicardial wires remain in place attached to a temporary pacemaker. - Review of Systems Respiratory: denies: cough, shortness of breath, sputum, wheezing Cardiology: reports: chest pain. denies: heart racing, light headedness, passing out Gastrointestinal: reports: constipation. denies: abdominal pain, nausea, vomitting Musculoskeletal: reports: unstable gait. denies: falls, neck pain, shoulder pain - Objective Allergies/Adverse Reactions: Allergies Allergy/AdvReac Type Severity Reaction Status Date / Time No Known Drug Allergies Allergy Verified 09/29/19 17:14 Current Medications Acetaminophen (Tylenol) 650 mg PO Q6H PRN PRN Reason: Headache/Fever Or Mild Pain Al Hydroxide/Mg Hydroxide (Maalox) 30 ml PO Q4H PRN PRN Reason: Indigestion Albuterol/Ipratropium (Duoneb) 3 ml NEB [id number] PRN PRN Reason: Respiratory Distress Aspirin (Aspirin) 325 mg PO DAILY [facility] Last Admin: 10/05/19 08:18 Dose: 325 mg Atorvastatin Calcium (Lipitor) 20 mg PO HS [facility] Bisacodyl (Dulcolax) 10 mg PO Q12H PRN PRN Reason: Constipation Bisacodyl (Dulcolax) 10 mg IN Q12H PRN PRN Reason: Constipation Dextrose/Water (Dextrose 50%) 25 gm SLOW IVP PRN PRN PRN Reason: PER HYPOGLYCEMIC PROTOCOL Enoxaparin Sodium (Lovenox) 30 mg SC 2100 [facility] Furosemide (Lasix) 40 mg PO DAILY EMILY Glucagon (Glucagon) 1 mg SC PRN PRN PRN Reason: PER HYPOGLYCEMIC PROTOCOL Guaifenesin/Dextromethorphan (Robitussin Dm) 15 ml PO Q4H PRN PRN Reason: Cough Dextrose/Water (D5w) 1,000 mls @ 0 mls/hr IV INF PRN PRN Reason: PRN HYPOGLYCEMIC PROTOCOL Insulin Glargine 10 units/ (Miscellaneous Medication) 0.1 mls @ 0 mls/hr SC HS [facility] Insulin Human Regular (Humulin R) 0 units SC Q4H PRN; Protocol PRN Reason: POST OP SLIDING SCALE Mineral Oil (Fleet Mineral Oil) 133 ml IN DAILYPRN PRN PRN Reason: Constipation Nitroglycerin (Nitrostat) 0.4 mg SL Q5MIN PRN PRN Reason: Chest Pain Ondansetron HCl (Zofran) 4 mg IVP Q6H PRN PRN Reason: Nausea/Vomiting Pantoprazole Sodium (Protonix) 40 mg PO DAILY [facility] Last Admin: 10/05/19 08:21 Dose: 40 mg Polyethylene Glycol (Miralax) 17 gm PO DAILY EMILY Last Admin: 10/05/19 08:18 Dose: 17 gm Potassium Chloride (Klor-Con 10) 10 meq PO QAM-WM EMILY Tramadol HCl (Ultram) 50 mg PO Q6H PRN PRN Reason: Moderate to Severe Pain (6-10) Vital Signs & Weight: Vital Signs Temp Pulse BP Pulse Ox 10/05/19 10:12 91 136/60 94 L 10/05/19 07:20 98 10/05/19 07:00 98.5 F 10/05/19 04:00 97.8 F 10/05/19 00:00 97.5 F L Weight 152 lb 8.958 oz I/O: I/O 10/04/19 10/05/19 10/06/19 06:59 06:59 06:59 Intake Total 1200 1530.7 Output Total 2125 1520 40 Balance -925 10.7 -40 - Physical Exam General: alert & oriented x3, appears well, no apparent distress, speech clear, affect appropriate HEENT: mucus membranes moist, normocephaly Neck: supple neck, midline trachea, no JVD/HJR, no masses, no bruit, no lymphadenopathy, no thromegaly Cardiology: regular rate and rhythm, no murmur, PMI nondisplaced, other ( epicardial wires present A&V) Lungs: clear to auscultation, normal breath sounds, no wheeze, rales, rhonchi Neurology: cranial nerve 2-12 intact, grossly intact, no lateralizing findings Abdomen: unremarkable, active bowel sounds, no pulsations/bruits - Labs Result Diagrams: 10/05/19 03:10 10/05/19 03:00 - EKG Interpretation EKG Method: Bedside EKG shows: Sinus rhythm, Sinus tachycardia - Problem (1) SVT (supraventricular tachycardia) Code(s): I47.1 - SUPRAVENTRICULAR TACHYCARDIA (2) NSTEMI (non-ST elevated myocardial infarction) Code(s): I21.4 - NON-ST ELEVATION (NSTEMI) MYOCARDIAL INFARCTION (3) CAD (coronary artery disease), [place] coronary artery Code(s): I25.10 - ATHSCL HEART DISEASE OF [place] CORONARY ARTERY W/O ANG PCTRS Qualifiers: [place] vs. transplanted heart: [place] heart Associated angina: with stable angina Qualified Code(s): I25.118 - Atherosclerotic heart disease of [place] coronary artery with other forms of angina pectoris Assessment and Plan: status post bypass on 10/01/2019, - Assessment/Plan Assessment/Plan: no recurrent SVT seen since the time of the ablation last week. Of note she was inducible for atrial fibrillation atrial flutter, which is yet to be seen clinically but would not be uncommon post CABG. She has her atrial and ventricular epicardial wires in place with a temporary pacemaker. There was a fair amount of ventricular pacing seen. I adjusted the settings on her temp pacer bedside to minimize ventricular pacing. Current settings: DDD 60. AV delay set to 240msec.
[2019-10-05] MEDS ORDERED: Melatonin 3 MG TAB PO PRN (17:08)
[2019-10-05] MEDS: Insulin Regular 300 UNITS/3 ML VIAL SC PRN ×2 (17:51→20:39)
[2019-10-05] MEDS: traMADol HCl 50 MG TAB PO PRN (19:04)
[2019-10-05] MEDS: Insulin Glargine 10 UNITS in Pre-Filled Syringe 1 EACH SC SCH (20:38)
[2019-10-05] MEDS: Atorvastatin Calcium 20 MG TAB PO SCH (20:40)
[2019-10-05] MEDS: Enoxaparin Sodium 30 MG/0.3 ML SYRINGE SC SCH (20:40)
[2019-10-05] MEDS ORDERED: Non-Formulary Item 1 EACH (Insulin Detemir [Levemir] 10 UNIT) SQ SCH (21:00)
[2019-10-06] MEDS: traMADol HCl 50 MG TAB PO PRN ×2 (04:35→13:40)
[2019-10-06 05:31] LABS: #Eosinphils 0.1 thou/uL (0.0-0.7); #Lymphocytes 1.8 thou/uL (1.20-3.40); #Monocytes 1.5 thou/uL (0.11-0.59); #Neutrophils 9.2 thou/uL (1.40-6.50); %Basophils 0.3 % (0.0-1.0); %Eosinophils 1.2 % (0.0-10.0); %Lymphocytes 14.1 % (21.0-51.0); %Monocytes 11.5 % (0.0-10.0); %Neutrophils 72.9 % (42.0-75.0); Hemoglobin 11.1 g/dL (12.0-16.0); Mean Corpuscular HGB CONC 33.1 g/dL (32.0-36.0); Mean Corpuscular Hemoglobin 32.3 pg (27.0-31.0); Mean Corpuscular Volume 97.4 fL (78.0-98.0); Mean Platelet Volume 8.1 fL (7.4-10.4); Platelet Count 331 thou/uL (130-400); RBC Distribution Width 15.8 % (11.5-14.5); Red Blood Cell (RBC) Count 3.44 mill/uL (4.20-5.40); White Blood Cell (WBC) Count 12.6 thou/uL (4.8-10.8)
[2019-10-06 06:02] LABS: Anion Gap 9 mmol/L (10-20); BUN (Urea Nitrogen) 8 mg/dL (9.8-20.1); Calc. Creatinine Clearance 66 mL/min (70-130); Carbon Dioxide 26 mmol/L (23-31); Chloride 101 mmol/L (98-107); Estimated GFR-MDRD 88; Glucose 119 mg/dL (83-110); Potassium 4.4 mmol/L (3.5-5.1); Sodium 132 mmol/L (136-145)
[2019-10-06] MEDS: Aspirin 325 MG TAB PO SCH (08:28)
[2019-10-06] MEDS: Polyethylene Glycol 3350 17 GM Packet PO SCH (08:28)
[2019-10-06] MEDS: Potassium Chloride 10 MEQ TAB PO SCH (08:28)
[2019-10-06] MEDS: metFORMIN 500 MG TAB PO SCH ×2 (08:29→17:57)
[2019-10-06] MEDS: Furosemide 40 MG TAB PO SCH (08:30)
--- NOTE | 2019-10-06 09:10 | PRG ---
DATE OF SERVICE: 10/05/2019 SUBJECTIVE: The patient is postop day 1, status post CABG by Dr. Solomon. The patient is sitting up in bed, resting comfortably, has just worked with Physical Therapy. States she gets very tired with minimal amount of working with Physical Therapy. The patient complains of pain with deep respirations that is alleviated with the use of her red pillow postop. The patient states she is planning to go back to inpatient rehab upon discharge. The right-sided chest tube is still hooked up to suction with 790 mL put out in the last 24 hours. OBJECTIVE: VITAL SIGNS: Temperature 98.5, blood pressure 121/56, heart rate 91 , oxygen saturation 96% on 1.5 L nasal cannula. GENERAL: No acute distress. Resting comfortably in bed. PULMONARY: Equal chest rise and fall. Lung sounds clear bilaterally. Right- sided chest tube hooked up to suction with serosanguineous output in canister. The patient is in no respiratory distress. No wheezing or crackles. CARDIAC: Regular rate and rhythm with atrial paced. Heart rate at 70s. ABDOMEN: Soft, nontender, and non-tense. EXTREMITIES: Neurovascularly intact x4. 2+ pulses, dorsalis pedis. No lower extremity edema. NEURO: GCS 15. LABORATORY DATA: H and H 11.2 and 32.9, stable. Sodium 137, potassium 4.2, creatinine 0.65. ASSESSMENT: 1. Postoperative day 1, status post coronary artery bypass graft by Dr. Solomon. 2. Atrial fibrillation with acute heart failure, now resolved. 3. Urinary tract infection, status post antibiotics. 4. Previous left hip fracture, stable. 5. History of diabetes, hypertension, and hyperlipidemia. PLAN: Continue postoperative recommendations per Cardiovascular Surgery and Dr. Solomon. Repeat labs in the a.m. Remain on telemetry per Dr. Solomon. Trauma will continue to follow and attend to CV Surgery recommendations. Care plan discussed with Dr. Penny who is in agreement with above plan. Job ID: [id number] [facility]
--- NOTE | 2019-10-06 09:23 | PRG ---
DATE OF SERVICE: 10/06/2019 SUBJECTIVE: Ms. Summers is doing well. No current complaints. She continues to have a chest tube in place. She states she has been sitting up on the side of the bed. Underlying rhythm has been sinus tachycardia and sinus rhythm. She has had one brief episode of PAT. OBJECTIVE: VITAL SIGNS: Blood pressure 135/63, pulse 108, and respirations 20. LUNGS: Clear to auscultation. HEART: Regular rate and rhythm. Tachycardic. ABDOMEN: Soft, nontender, and nondistended. EXTREMITIES: No edema. PERTINENT LABORATORY DATA: Hemoglobin 11.1, hematocrit 33.5. IMPRESSION: Coronary artery disease, status post bypass surgery . RECOMMENDATIONS: 1. The patient is currently doing well. 2. Recommend beta-emili therapy. 3. Incentive spirometry and physical therapy. Job ID: [id number]
--- NOTE | 2019-10-06 11:24 | PRG ---
DATE OF SERVICE: 10/06/2019 RESIDENT: Kelin Brandon DO Attending physician, Dr. Penny, has seen and evaluated patient on morning rounds. SUBJECTIVE: The patient is sitting up at the bedside chair, asleep but arousable upon entry with soft voice. The patient awakens and speaks to us. She states she ate Cream of Wheat and a few eggs for breakfast. She feels like she is eating enough meals. The patient states she is feeling very weak with working with rehab. The patient is planning to be discharged to inpatient rehab where she was before. The patient just had her [place] urinary catheter removed and thinks that she will be able to void once she is given a little bit more time. OBJECTIVE: VITAL SIGNS: Temperature 98.1, heart rate 110, respiratory rate 18, oxygen saturation 92% on 1 L nasal cannula, and blood pressure 135/63. GENERAL: No acute distress. Alert and oriented x3. HEENT: Head; atraumatic, normocephalic. LUNGS: Clear to auscultation bilaterally. No wheezing, rales, or rhonchi. HEART: Regular rhythm with a rate of 108, tachycardic. ABDOMEN: Soft, nontender, nondistended. EXTREMITIES: No peripheral edema. Peripheral pulses intact and 2+. LABORATORY DATA: H and H 11.1 and 33.5, stable. Chest x-ray from 10/04 stable postoperative appearance of the chest with no evidence of pneumothorax. Chest tube put out 125 mL overnight. This is down from 790 mL yesterday. ASSESSMENT: 1. Postoperative day #2 status post coronary artery bypass graft by Dr. Solomon. 2. Atrial fibrillation with acute heart failure, resolved. 3. Urinary tract infection, status post antibiotic treatment. 4. Previous left hip fracture, which is stable. 5. Histories of diabetes, hypertension, hyperlipidemia. PLAN: Continue postoperative recommendations per CV surgery team with Dr. Solomon. Hemoglobin and hematocrit stable. Remain on tele-floor per Dr. Solomon. The patient has been accepted for inpatient rehab and cleared for discharge once Dr. Solomon approves the discharge timing. Trauma team will continue to follow the patient and CV surgery recommendations. Continue incentive spirometry for the patient to encourage deep breaths and coughing. Dr. Penny has personally seen and evaluated this patient on morning rounds. He is in agreement with the above-stated plan. Job ID: [id number]
[2019-10-06 13:46] VITALS: BMI 26.0
--- NOTE | 2019-10-06 14:49 | PDOC.EP ---
- Subjective Date: 10/06/19 Time: 14:48 Interval History: Status post EP study with SVT ablation 09/30/2019. CABG 10/01/2019. she is sitting in the chair bedside. She does report some post bypass pain. She denies any heart racing, palpitations, syncope near syncope, stroke or stroke-like symptoms. Now on telemetry working with PT at the moment. - Review of Systems Constitutional: denies: chills, fever, malaise, sweats, weakness, other Respiratory: denies: cough, dry, hemoptysis, pleuritic pain, shortness of breath , SOB with excertion, sputum, wheezing, other Cardiology: reports: chest pain (post CABG). denies: edema, heart racing, light headedness, palpitations, passing out Gastrointestinal: denies: abdominal pain, constipation, diarrhea, hematochezia, melena, nausea, vomitting, other - Objective Allergies/Adverse Reactions: Allergies Allergy/AdvReac Type Severity Reaction Status Date / Time No Known Drug Allergies Allergy Verified 09/29/19 17:14 Current Medications Acetaminophen (Tylenol) 650 mg PO Q6H PRN PRN Reason: Headache/Fever Or Mild Pain Last Admin: 10/06/19 08:32 Dose: 650 mg Al Hydroxide/Mg Hydroxide (Maalox) 30 ml PO Q4H PRN PRN Reason: Indigestion Albuterol/Ipratropium (Duoneb) 3 ml NEB [id number] PRN PRN Reason: Respiratory Distress Aspirin (Aspirin) 325 mg PO DAILY [facility] Last Admin: 10/06/19 08:28 Dose: 325 mg Atorvastatin Calcium (Lipitor) 20 mg PO HS [facility] Last Admin: 10/05/19 20:40 Dose: 20 mg Bisacodyl (Dulcolax) 10 mg PO Q12H PRN PRN Reason: Constipation Last Admin: 10/05/19 19:05 Dose: 10 mg Bisacodyl (Dulcolax) 10 mg AK Q12H PRN PRN Reason: Constipation Dextrose/Water (Dextrose 50%) 25 gm SLOW IVP PRN PRN PRN Reason: PER HYPOGLYCEMIC PROTOCOL Enoxaparin Sodium (Lovenox) 30 mg SC 2100 [facility] Last Admin: 10/05/19 20:40 Dose: 30 mg Furosemide (Lasix) 40 mg PO DAILY [facility] Last Admin: 10/06/19 08:30 Dose: 40 mg Glucagon (Glucagon) 1 mg SC PRN PRN PRN Reason: PER HYPOGLYCEMIC PROTOCOL Guaifenesin/Dextromethorphan (Robitussin Dm) 15 ml PO Q4H PRN PRN Reason: Cough Dextrose/Water (D5w) 1,000 mls @ 0 mls/hr IV INF PRN PRN Reason: PRN HYPOGLYCEMIC PROTOCOL Insulin Glargine 10 units/ (Miscellaneous Medication) 0.1 mls @ 0 mls/hr SC HS [facility] Last Admin: 10/05/19 20:38 Dose: 0.1 mls Insulin Human Regular (Humulin R) 0 units SC .MODERATE SLIDING SC PRN PRN Reason: Moderate Correctional Scale Last Admin: 10/05/19 17:51 Dose: 10 unit Insulin Human Regular (Humulin R) 0 units SC .BEDTIME SLIDING SC PRN PRN Reason: Bedtime Correctional Scale Last Admin: 10/05/19 20:39 Dose: 3 units Melatonin (Melatonin) 3 mg PO HSPRN PRN PRN Reason: Insomnia Metformin HCl (Glucophage) 1,000 mg PO BID-[facility] Last Admin: 10/06/19 08:29 Dose: 1,000 mg Mineral Oil (Fleet Mineral Oil) 133 ml [place] DAILYPRN PRN PRN Reason: Constipation Nitroglycerin (Nitrostat) 0.4 mg SL Q5MIN PRN PRN Reason: Chest Pain Ondansetron HCl (Zofran) 4 mg IVP Q6H PRN PRN Reason: Nausea/Vomiting Pantoprazole Sodium (Protonix) 40 mg PO DAILY [facility] Last Admin: 10/06/19 08:30 Dose: 40 mg Polyethylene Glycol (Miralax) 17 gm PO DAILY [facility] Last Admin: 10/06/19 08:28 Dose: 17 gm Potassium Chloride (Klor-Con 10) 10 meq PO QAM-[facility] Last Admin: 10/06/19 08:28 Dose: 10 meq Sodium Chloride (Flush - Normal Saline) 10 ml IVF Q12HR [facility] Last Admin: 10/06/19 08:33 Dose: 10 ml Sodium Chloride (Flush - Normal Saline) 10 ml IVF PRN PRN PRN Reason: Saline Flush Tramadol HCl (Ultram) 50 mg PO Q6H PRN PRN Reason: Moderate to Severe Pain (6-10) Last Admin: 10/06/19 13:40 Dose: 50 mg Vital Signs & Weight: Vital Signs Temp Pulse Pulse Pulse Resp BP BP 10/06/19 12:00 98.2 F 124 H 17 10/06/19 08:24 115 H 105 H 142/65 H 135/63 10/06/19 08:00 98.1 F 110 H 18 10/06/19 03:21 98.0 F 108 H 16 BP BP Pulse Ox Pulse Ox Pulse Ox 10/06/19 12:00 110/59 L 97 10/06/19 08:24 93 L 93 L 10/06/19 08:00 135/63 93 L 10/06/19 03:21 123/58 L 92 L Admit Weight 143 lb 6.4 oz Weight 151 lb 9.6 oz I/O: I/O 10/05/19 10/06/19 10/07/19 06:59 06:59 06:59 Intake Total 1530.7 100 Output Total 1520 715 Balance 10.7 -595 - Quality Measures Condition: Atrial Fibrillation/Flutter (hx or current) - Medication Contraindications No Anticoagulant reason: Treatment not indicated (heparin) - Physical Exam General: alert & oriented x3, appears well, no apparent distress, speech clear, affect appropriate HEENT: mucus membranes moist, normocephaly Neck: supple neck, midline trachea, no JVD/HJR, no masses, no bruit, no lymphadenopathy, no thromegaly Cardiology: regular rate and rhythm, no murmur, regular rate, regular rhythm, PMI nondisplaced Lungs: clear to auscultation, normal breath sounds, normal exam, no wheeze, rales, rhonchi, no wheezes, no rales, no rhonchi Neurology: cranial nerve 2-12 intact, grossly intact, no lateralizing findings - Labs Result Diagrams: 10/06/19 04:33 10/06/19 04:33 - EKG Interpretation EKG Method: Telemetry EKG shows: Sinus rhythm - Assessment/Plan Assessment/Plan: no recurrent SVT seen since the time of the ablation last week. Of note she was inducible for atrial fibrillation atrial flutter, which is yet to be seen clinically but would not be uncommon post CABG. She is having transient mild tachycardia that appears to be sinus tach on tele. Occasional PVCs are seen as well. No bradycardia. Epicardial wires are now capped.
[2019-10-06] MEDS: Insulin Regular 300 UNITS/3 ML VIAL SC PRN ×2 (17:58→20:56)
[2019-10-06] MEDS: Atorvastatin Calcium 20 MG TAB PO SCH (20:56)
[2019-10-06] MEDS: Enoxaparin Sodium 30 MG/0.3 ML SYRINGE SC SCH (20:56)
[2019-10-06] MEDS: Insulin Glargine 10 UNITS in Pre-Filled Syringe 1 EACH SC SCH (20:56)
--- NOTE | 2019-10-07 09:02 | PRG ---
DATE OF SERVICE: 10/07/2019 SUBJECTIVE: Ms. Summers is doing better. She continues to be weak. Her chest tube has been discontinued. Blood pressure and heart rate remained stable. Her weight is up 4 pounds since admission. OBJECTIVE: VITAL SIGNS: Blood pressure is 127/62, pulse 94, temperature 98.3. LUNGS: Mild crackles noted bilaterally. HEART: Regular rate and rhythm. ABDOMEN: Soft, nontender, nondistended. EXTREMITIES: No edema. PERTINENT LABORATORY DATA: Hemoglobin 11.1, white blood cell count 12.6. Creatinine 0.64. CURRENT CV MEDICATIONS: 1. Aspirin 325 q.a.m. 2. Atorvastatin 20 at bedtime. IMPRESSION: 1. Coronary artery disease, status post bypass surgery. 2. Supraventricular tachycardia. RECOMMENDATIONS: Ms. Summers' heart rate has increased in the 90s. We will add low-dose beta-emili therapy. We will monitor her heart rate closely. She has had some bradycardia in the past, but appears to have resolved. Continue incentive spirometry and physical therapy. Continue Lasix. Job ID: [id number]
[2019-10-07] MEDS: Aspirin 325 MG TAB PO SCH (09:04)
[2019-10-07] MEDS: metFORMIN 500 MG TAB PO SCH ×2 (09:05→17:32)
[2019-10-07] MEDS: Potassium Chloride 10 MEQ TAB PO SCH (09:05)
[2019-10-07] MEDS: Metoprolol Tartrate 25 MG TAB PO SCH ×2 (09:06→20:35)
[2019-10-07] MEDS: Furosemide 40 MG TAB PO SCH (09:06)
[2019-10-07] MEDS: Polyethylene Glycol 3350 17 GM Packet PO SCH (09:07)
[2019-10-07] MEDS: Insulin Glargine 10 UNITS in Pre-Filled Syringe 1 EACH SC SCH ×2 (09:07→21:50)
[2019-10-07] MEDS: Insulin Regular 300 UNITS/3 ML VIAL SC PRN ×2 (12:12→17:32)
--- NOTE | 2019-10-07 12:42 | PDOC.EP ---
- Subjective Date: 10/07/19 Time: 08:00 Interval History: Follow-up for arrhythmia management. she is feeling well with no reported heart racing or palpitations. She had significant pain yesterday in her shoulder which has resolved. She is feeling much better today - Review of Systems Constitutional: reports: weakness. denies: chills, fever, malaise Respiratory: denies: cough, hemoptysis, shortness of breath, wheezing Cardiology: denies: chest pain, heart racing, light headedness, palpitations, passing out Gastrointestinal: denies: abdominal pain, constipation, nausea, vomitting - Objective Allergies/Adverse Reactions: Allergies Allergy/AdvReac Type Severity Reaction Status Date / Time No Known Drug Allergies Allergy Verified 09/29/19 17:14 Current Medications Acetaminophen (Tylenol) 650 mg PO Q6H PRN PRN Reason: Headache/Fever Or Mild Pain Last Admin: 10/06/19 08:32 Dose: 650 mg Al Hydroxide/Mg Hydroxide (Maalox) 30 ml PO Q4H PRN PRN Reason: Indigestion Albuterol/Ipratropium (Duoneb) 3 ml NEB [id number] PRN PRN Reason: Respiratory Distress Aspirin (Aspirin) 325 mg PO DAILY [facility] Last Admin: 10/07/19 09:04 Dose: 325 mg Atorvastatin Calcium (Lipitor) 20 mg PO HS [facility] Last Admin: 10/06/19 20:56 Dose: 20 mg Bisacodyl (Dulcolax) 10 mg PO Q12H PRN PRN Reason: Constipation Last Admin: 10/05/19 19:05 Dose: 10 mg Bisacodyl (Dulcolax) 10 mg AL Q12H PRN PRN Reason: Constipation Dextrose/Water (Dextrose 50%) 25 gm SLOW IVP PRN PRN PRN Reason: PER HYPOGLYCEMIC PROTOCOL Enoxaparin Sodium (Lovenox) 30 mg SC 2100 [facility] Last Admin: 10/06/19 20:56 Dose: 30 mg Furosemide (Lasix) 40 mg PO DAILY [facility] Last Admin: 10/07/19 09:06 Dose: 40 mg Glucagon (Glucagon) 1 mg SC PRN PRN PRN Reason: PER HYPOGLYCEMIC PROTOCOL Guaifenesin/Dextromethorphan (Robitussin Dm) 15 ml PO Q4H PRN PRN Reason: Cough Dextrose/Water (D5w) 1,000 mls @ 0 mls/hr IV INF PRN PRN Reason: PRN HYPOGLYCEMIC PROTOCOL Insulin Glargine 10 units/ (Miscellaneous Medication) 0.1 mls @ 0 mls/hr SC HS [facility] Last Admin: 10/06/19 20:56 Dose: 0.1 mls Insulin Glargine 10 units/ (Miscellaneous Medication) 0.1 mls @ 0 mls/hr SC QAM [facility] Last Admin: 10/07/19 09:07 Dose: 0.1 mls Insulin Human Regular (Humulin R) 0 units SC .MODERATE SLIDING SC PRN PRN Reason: Moderate Correctional Scale Last Admin: 10/07/19 12:12 Dose: 6 unit Insulin Human Regular (Humulin R) 0 units SC .BEDTIME SLIDING SC PRN PRN Reason: Bedtime Correctional Scale Last Admin: 10/06/19 20:56 Dose: 4 units Melatonin (Melatonin) 3 mg PO HSPRN PRN PRN Reason: Insomnia Metformin HCl (Glucophage) 1,000 mg PO BID-[facility] Last Admin: 10/07/19 09:05 Dose: 1,000 mg Metoprolol Tartrate (Lopressor) 12.5 mg PO BID [facility] Last Admin: 10/07/19 09:06 Dose: 12.5 mg Mineral Oil (Fleet Mineral Oil) 133 ml AL DAILYPRN PRN PRN Reason: Constipation Nitroglycerin (Nitrostat) 0.4 mg SL Q5MIN PRN PRN Reason: Chest Pain Pantoprazole Sodium (Protonix) 40 mg PO DAILY [facility] Last Admin: 10/07/19 09:06 Dose: 40 mg Polyethylene Glycol (Miralax) 17 gm PO DAILY [facility] Last Admin: 10/07/19 09:07 Dose: 17 gm Potassium Chloride (Klor-Con 10) 10 meq PO QAM-[facility] Last Admin: 10/07/19 09:05 Dose: 10 meq Sodium Chloride (Flush - Normal Saline) 10 ml IVF Q12HR [facility] Last Admin: 10/07/19 09:08 Dose: 10 ml Sodium Chloride (Flush - Normal Saline) 10 ml IVF PRN PRN PRN Reason: Saline Flush Tramadol HCl (Ultram) 50 mg PO Q6H PRN PRN Reason: Moderate to Severe Pain (6-10) Last Admin: 10/06/19 13:40 Dose: 50 mg Vital Signs & Weight: Vital Signs Temp Pulse Resp BP BP Pulse Ox 10/07/19 07:55 98.0 F 93 18 142/65 H 95 10/07/19 04:00 98.3 F 94 16 127/62 93 L Admit Weight 143 lb 6.4 oz Weight 152 lb I/O: I/O 10/06/19 10/07/19 10/08/19 06:59 06:59 06:59 Intake Total 100 960 240 Output Total 715 480 Balance -615 480 240 - Quality Measures Condition: Atrial Fibrillation/Flutter (hx or current) - Medication Contraindications No Anticoagulant reason: Treatment not indicated (heparin) - Physical Exam General: alert & oriented x3, appears well, no apparent distress, speech clear, affect appropriate HEENT: mucus membranes moist, normocephaly Neck: supple neck, midline trachea, no JVD/HJR, no masses, no bruit, no lymphadenopathy, no thromegaly Cardiology: regular rate and rhythm, no murmur, regular rate, regular rhythm, PMI nondisplaced Lungs: clear to auscultation, normal breath sounds, normal exam, no wheeze, rales, rhonchi, no wheezes, no rales, no rhonchi - Labs Result Diagrams: 10/06/19 04:33 10/06/19 04:33 - EKG Interpretation EKG Method: Telemetry EKG shows: Sinus rhythm - Assessment/Plan Assessment/Plan: 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 Inducible for AFib/atypical flutter as well. 2. CAD -s/p CABG, 2V 3. PAT - continues to have asymptomatic paroxysmal tachycardia, HR 110bpm, with sudden onset and offset suggestive of atrial tachycardia. Agree with low-dose beta-emili therapy. Continue to monitor for atrial fibrillation/flutter. I see no mention of left atrial appendage removal at time of bypass. if atrial arrhythmias are seen anticoagulation would be indicated I personally examined and interviewed the patient and agree with the above assessment and plan as documented by Ms. Chamorro.
--- NOTE | 2019-10-07 14:16 | PRG ---
DATE OF SERVICE: 10/07/2019 RESIDENT: Kelin Brandon DO Attending physician, Dr. Penny, who has seen and evaluated this patient on morning rounds. SUBJECTIVE: The patient is sitting up in the bed this morning after breakfast. States she feels very weak. Has been working with physical and occupational therapy well. She ate some pancakes for breakfast and tolerated that well. Her [place] urinary catheter has been discontinued as she is urinating spontaneously. She also had her chest tubes removed and states this has relieved a lot of the discomfort that she was having while lying in bed. The plan for the patient is to go back to inpatient rehab upon discharge. OBJECTIVE: VITAL SIGNS: Temperature 98.0, heart rate 93, respiratory rate 18, oxygen saturation 95% on 1 L nasal cannula, and blood pressure 142/65. GENERAL: No acute distress. Alert and oriented x3. HEENT: Head; normocephalic, atraumatic. LUNGS: Clear to auscultation bilaterally. No wheezing, rales, or rhonchi throughout. HEART: Regular rate and rhythm. ABDOMEN: Soft, nontender, and nondistended. EXTREMITIES: Moves all 4 extremities. Peripheral pulses intact 2+ bilaterally. LABORATORY DATA: Glucose 150 to 333 range. ASSESSMENT: 1. Postoperative day #3, status post coronary artery bypass grafting by Dr. Solomon. 2. Atrial fibrillation with acute heart failure, resolved. 3. Urinary tract infection, status post antibiotic treatment. 4. Previous left hip fracture, stable. 5. History of diabetes. 6. Hypertension. 7. Hyperlipidemia. PLAN: Continue postoperative recommendations per CV Surgery Team with Dr. Solomon. At this time, the patient is pending discharge to inpatient rehab per Cardiovascular Surgery Team recommendations upon discharge, and from Trauma Service standpoint , she is stable for that whenever CV Surgery Team decides for discharge. Continue incentive spirometry, physical therapy, and occupational therapy. The patient has personally been seen and evaluated by Dr. Penny on morning rounds, who is in agreement with the above-stated plan. Job ID: [id number] MTDD
[2019-10-07] MEDS: Atorvastatin Calcium 20 MG TAB PO SCH (20:35)
[2019-10-07] MEDS: Enoxaparin Sodium 30 MG/0.3 ML SYRINGE SC SCH (20:37)
[2019-10-08] MEDS: Insulin Glargine 10 UNITS in Pre-Filled Syringe 1 EACH SC SCH ×2 (08:35→21:14)
[2019-10-08] MEDS: metFORMIN 500 MG TAB PO SCH ×2 (08:36→17:03)
[2019-10-08] MEDS: Furosemide 40 MG TAB PO SCH (08:36)
[2019-10-08] MEDS: Metoprolol Tartrate 25 MG TAB PO SCH ×2 (08:36→21:13)
[2019-10-08] MEDS: Potassium Chloride 10 MEQ TAB PO SCH (08:36)
[2019-10-08] MEDS: Polyethylene Glycol 3350 17 GM Packet PO SCH (08:36)
[2019-10-08] MEDS: Apixaban 2.5 MG TAB PO SCH ×2 (08:36→21:14)
[2019-10-08] MEDS: Aspirin 81 mg Enteric Coated Tablet PO SCH (08:40)
--- NOTE | 2019-10-08 11:14 | PDOC.EP ---
- Subjective Date: 10/08/19 Time: 11:12 Interval History: She is feeling well this morning despite having gone and atrial fibrillation. She is eager to go to rehab, voicing no new cardiac concerns or complaints - Review of Systems Constitutional: reports: weakness. denies: chills, fever, malaise, sweats Respiratory: denies: cough, hemoptysis, pleuritic pain, shortness of breath, wheezing Cardiology: denies: chest pain, edema, heart racing, light headedness, palpitations, passing out, pressure Gastrointestinal: denies: constipation, nausea, vomitting Musculoskeletal: denies: unstable gait, falls, neck pain, leg pain - Objective Allergies/Adverse Reactions: Allergies Allergy/AdvReac Type Severity Reaction Status Date / Time No Known Drug Allergies Allergy Verified 09/29/19 17:14 Current Medications Acetaminophen (Tylenol) 650 mg PO Q6H PRN PRN Reason: Headache/Fever Or Mild Pain Last Admin: 10/06/19 08:32 Dose: 650 mg Al Hydroxide/Mg Hydroxide (Maalox) 30 ml PO Q4H PRN PRN Reason: Indigestion Albuterol/Ipratropium (Duoneb) 3 ml NEB [id number] PRN PRN Reason: Respiratory Distress Apixaban (Eliquis) 2.5 mg PO BID [facility] Last Admin: 10/08/19 08:36 Dose: 2.5 mg Aspirin (Ecotrin) 81 mg PO DAILY [facility] Last Admin: 10/08/19 08:40 Dose: 81 mg Atorvastatin Calcium (Lipitor) 20 mg PO HS [facility] Last Admin: 10/07/19 20:35 Dose: 20 mg Bisacodyl (Dulcolax) 10 mg PO Q12H PRN PRN Reason: Constipation Last Admin: 10/05/19 19:05 Dose: 10 mg Bisacodyl (Dulcolax) 10 mg HI Q12H PRN PRN Reason: Constipation Dextrose/Water (Dextrose 50%) 25 gm SLOW IVP PRN PRN PRN Reason: PER HYPOGLYCEMIC PROTOCOL Furosemide (Lasix) 40 mg PO DAILY [facility] Last Admin: 10/08/19 08:36 Dose: 40 mg Glucagon (Glucagon) 1 mg SC PRN PRN PRN Reason: PER HYPOGLYCEMIC PROTOCOL Guaifenesin/Dextromethorphan (Robitussin Dm) 15 ml PO Q4H PRN PRN Reason: Cough Dextrose/Water (D5w) 1,000 mls @ 0 mls/hr IV INF PRN PRN Reason: PRN HYPOGLYCEMIC PROTOCOL Insulin Glargine 10 units/ (Miscellaneous Medication) 0.1 mls @ 0 mls/hr SC HS [facility] Last Admin: 10/07/19 21:50 Dose: 0.1 mls Insulin Glargine 10 units/ (Miscellaneous Medication) 0.1 mls @ 0 mls/hr [facility] Last Admin: 10/08/19 08:35 Dose: 0.1 mls Insulin Human Regular (Humulin R) 0 units SC .MODERATE SLIDING SC PRN PRN Reason: Moderate Correctional Scale Last Admin: 10/07/19 17:32 Dose: 4 unit Insulin Human Regular (Humulin R) 0 units SC .BEDTIME SLIDING SC PRN PRN Reason: Bedtime Correctional Scale Last Admin: 10/06/19 20:56 Dose: 4 units Melatonin (Melatonin) 3 mg PO HSPRN PRN PRN Reason: Insomnia Metformin HCl (Glucophage) 1,000 mg PO BID-[facility] Last Admin: 10/08/19 08:36 Dose: 1,000 mg Metoprolol Tartrate (Lopressor) 12.5 mg PO BID [facility] Last Admin: 10/08/19 08:36 Dose: 12.5 mg Mineral Oil (Fleet Mineral Oil) 133 ml [place] DAILYPRN PRN PRN Reason: Constipation Nitroglycerin (Nitrostat) 0.4 mg SL Q5MIN PRN PRN Reason: Chest Pain Pantoprazole Sodium (Protonix) 40 mg PO DAILY [facility] Last Admin: 10/08/19 08:36 Dose: 40 mg Polyethylene Glycol (Miralax) 17 gm PO DAILY [facility] Last Admin: 10/08/19 08:36 Dose: 17 gm Potassium Chloride (Klor-Con 10) 10 meq PO QAM-[facility] Last Admin: 10/08/19 08:36 Dose: 10 meq Sodium Chloride (Flush - Normal Saline) 10 ml IVF Q12HR [facility] Last Admin: 10/08/19 08:37 Dose: 10 ml Sodium Chloride (Flush - Normal Saline) 10 ml IVF PRN PRN PRN Reason: Saline Flush Tramadol HCl (Ultram) 50 mg PO Q6H PRN PRN Reason: Moderate to Severe Pain (6-10) Last Admin: 10/06/19 13:40 Dose: 50 mg Vital Signs & Weight: Vital Signs Temp Pulse Resp BP Pulse Ox 10/08/19 08:17 97.6 F 78 18 126/59 L 96 10/08/19 03:43 97.4 F L 97 18 111/59 L 96 Admit Weight 143 lb 6.4 oz Weight 151 lb 6.4 oz I/O: I/O 10/07/19 10/08/19 10/09/19 06:59 06:59 06:59 Intake Total 960 1160 Output Total 480 960 Balance 480 200 - Quality Measures Condition: Atrial Fibrillation/Flutter (hx or current) CV meds: Eliquis: Yes - Physical Exam General: alert & oriented x3, appears well, no apparent distress, speech clear, affect appropriate HEENT: mucus membranes moist, normocephaly Neck: supple neck, no JVD/HJR, no lymphadenopathy Cardiology: no murmur, regular rate, PMI nondisplaced, irregularly irregular. 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 Inducible for AFib/atypical flutter as well. 2. CAD -s/p CABG, 2V 10/03/19 3. PAT - preceding afib had episodes asymptomatic paroxysmal tachycardia, HR 110bpm , with sudden onset and offset suggestive of atrial tachycardia. 4. Atrial fibrillation -rate controlled -asymptomatic Continue beta-emili therapy. Started on low dose eliquis by [facility]. Consider CV in the future if symptomatic or poor rate control. Could wait until she has recovered from her recent CABG.
[2019-10-08] MEDS: Insulin Regular 300 UNITS/3 ML VIAL SC PRN ×2 (12:08→17:11)
[2019-10-08] MEDS ORDERED: Furosemide 40 MG/4 ML VIAL IVP SCH (13:15)
--- NOTE | 2019-10-08 13:33 | PRG ---
DATE OF SERVICE: 10/08/2019 SUBJECTIVE: Ms. Summers today developed atrial fibrillation. Her rate appears to be stable. She has no current complaints. OBJECTIVE: VITAL SIGNS: Blood pressure 123/80, pulse 104, temperature afebrile. LUNGS: Crackles noted bilaterally. HEART: Irregular . ABDOMEN: Soft, nontender, and nondistended. EXTREMITIES: No edema. PERTINENT LABORATORY DATA: Hemoglobin 11.1. IMPRESSION: 1. Coronary artery disease. 2. Status post bypass surgery. 3. SVT, status post ablation. 4. New-onset atrial fibrillation. RECOMMENDATIONS: Atrial fibrillation is likely secondary to recent bypass surgery. She does have crackles noted bilaterally. She is scheduled to go to rehab today. We would like to keep her overnight. She has high readmission potential. We will give IV Lasix. Eliquis 2.5 mg one p.o. b.i.d. has been added by Dr. Ihsan Solomon. Aspirin has also been changed to 81 mg one p.o. q.a.m. She appears to be stable on low-dose metoprolol 12.5 b.i.d. Stable in a.m. will be okay for discharge to rehab. Job ID: [id number]
[2019-10-08] MEDS ORDERED: Metolazone 2.5 MG TAB PO SCH (14:30)
[2019-10-08] MEDS: traMADol HCl 50 MG TAB PO PRN (17:09)
--- NOTE | 2019-10-08 19:10 | PRG ---
DATE OF SERVICE: 10/08/2019 SUBJECTIVE: Ms. Summers is an 88-year-old female, readmission after hip fracture fixation earlier with the patient developing atrial fibrillation with RVR, coronary artery disease. The patient is status post CABG, postop day 4 today. Last night, the patient had atrial fibrillation with RVR, it is rate controlled. She has been stable with no shortness of breath. Dr. Solomon is okay for the patient to go to rehab today. However, Dr. Emmanuel, Cardiology, wants to give the patient Lasix. We will observe the patient overnight for signs of heart failure or atrial fibrillation, RVR. OBJECTIVE: GENERAL: Currently, the patient lying in bed comfortable with no acute respiratory distress. VITAL SIGNS: Temperature 98.7, heart rate is 78, respiratory rate 18, O2 saturation 96% on 1 L, and blood pressure 126/59. LUNGS: Clear bilaterally. HEART: Regular rate and rhythm. ABDOMEN: Soft, nondistended. EXTREMITIES: Neurovascularly intact x4. NEUROLOGY: No focal neurology deficits. ASSESSMENT: 1. Status post fall with hip fracture, status post a hip fracture fixation, readmission, stable. 2. Atrial fibrillation with rapid ventricular response, rate control at the moment. 3. Coronary artery disease, status post coronary artery bypass grafting, postop day 4. PLAN: The patient will be continued on supportive care. Continue pain control. We will observe the patient overnight. If the patient is stable in the morning, Dr. Emmanuel is okay for the patient to go to rehab. The patient was seen and evaluated with Dr. Penny on round this morning. Job ID: [id number]
[2019-10-08] MEDS: Atorvastatin Calcium 20 MG TAB PO SCH (21:14)
[2019-10-09 04:47] LABS: Platelet Count 408 thou/uL (130-400)
[2019-10-09 05:05] LABS: Anion Gap 11 mmol/L (10-20); BUN (Urea Nitrogen) 8 mg/dL (9.8-20.1); Calc. Creatinine Clearance 62 mL/min (70-130); Calcium 8.6 mg/dL (7.8-10.44); Carbon Dioxide 30 mmol/L (23-31); Chloride 90 mmol/L (98-107); Estimated GFR-MDRD 83; Glucose 88 mg/dL (83-110); Potassium 3.9 mmol/L (3.5-5.1); Sodium 127 mmol/L (136-145)
[2019-10-09] MEDS ORDERED: Metolazone 2.5 MG TAB PO SCH (08:30)
[2019-10-09] MEDS: Insulin Glargine 10 UNITS in Pre-Filled Syringe 1 EACH SC SCH (08:49)
[2019-10-09] MEDS: Furosemide 40 MG TAB PO SCH (08:50)
[2019-10-09] MEDS: metFORMIN 500 MG TAB PO SCH (08:50)
[2019-10-09] MEDS: Metoprolol Tartrate 25 MG TAB PO SCH (08:50)
[2019-10-09] MEDS: Aspirin 81 mg Enteric Coated Tablet PO SCH (08:50)
[2019-10-09] MEDS: Apixaban 2.5 MG TAB PO SCH (08:51)
[2019-10-09] MEDS: Potassium Chloride 10 MEQ TAB PO SCH (08:52)
[2019-10-09] MEDS: Polyethylene Glycol 3350 17 GM Packet PO SCH (08:52)
[2019-10-09 12:08] VITALS: TEMP 97.5
[2019-10-09] MEDS: Insulin Regular 300 UNITS/3 ML VIAL SC PRN (12:09)
--- NOTE | 2019-10-09 12:29 | PDOC.CPN ---
- Subjective Date: 10/09/19 Time: 12:46 Interval history: The pt seen and examined. No overnight events. No cardiac complaints. - Objective Allergies/Adverse Reactions: Allergies Allergy/AdvReac Type Severity Reaction Status Date / Time No Known Drug Allergies Allergy Verified 09/29/19 17:14 Visit Medications: Current Medications Acetaminophen (Tylenol) 650 mg PO Q6H PRN PRN Reason: Headache/Fever Or Mild Pain Last Admin: 10/06/19 08:32 Dose: 650 mg Al Hydroxide/Mg Hydroxide (Maalox) 30 ml PO Q4H PRN PRN Reason: Indigestion Albuterol/Ipratropium (Duoneb) 3 ml NEB [id number] PRN PRN Reason: Respiratory Distress Apixaban (Eliquis) 2.5 mg PO BID COUNT INCLUDES THE [facility] Last Admin: 10/09/19 08:51 Dose: 2.5 mg Aspirin (Ecotrin) 81 mg PO DAILY COUNT INCLUDES THE [facility] Last Admin: 10/09/19 08:50 Dose: 81 mg Atorvastatin Calcium (Lipitor) [address] [facility] Last Admin: 10/08/19 21:14 Dose: 20 mg Bisacodyl (Dulcolax) 10 mg PO Q12H PRN PRN Reason: Constipation Last Admin: 10/05/19 19:05 Dose: 10 mg Bisacodyl (Dulcolax) 10 mg GA Q12H PRN PRN Reason: Constipation Dextrose/Water (Dextrose 50%) 25 gm SLOW IVP PRN PRN PRN Reason: PER HYPOGLYCEMIC PROTOCOL Furosemide (Lasix) 40 mg PO DAILY COUNT INCLUDES THE [facility] Last Admin: 10/09/19 08:50 Dose: 40 mg Glucagon (Glucagon) 1 mg SC PRN PRN PRN Reason: PER HYPOGLYCEMIC PROTOCOL Guaifenesin/Dextromethorphan (Robitussin Dm) 15 ml PO Q4H PRN PRN Reason: Cough Dextrose/Water (D5w) 1,000 mls @ 0 mls/hr IV INF PRN PRN Reason: PRN HYPOGLYCEMIC PROTOCOL Insulin Glargine 10 units/ (Miscellaneous Medication) 0.1 mls @ 0 mls/hr SC HS COUNT INCLUDES THE [facility] Last Admin: 10/08/19 21:14 Dose: 0.1 mls Insulin Glargine 10 units/ (Miscellaneous Medication) 0.1 mls @ 0 mls/hr SC QAM COUNT INCLUDES THE [facility] Last Admin: 10/09/19 08:49 Dose: 0.1 mls Insulin Human Regular (Humulin R) 0 units SC .MODERATE SLIDING SC PRN PRN Reason: Moderate Correctional Scale Last Admin: 10/08/19 17:11 Dose: 2 unit Insulin Human Regular (Humulin R) 0 units SC .BEDTIME SLIDING SC PRN PRN Reason: Bedtime Correctional Scale Last Admin: 10/06/19 20:56 Dose: 4 units Melatonin (Melatonin) 3 mg PO HSPRN PRN PRN Reason: Insomnia Metformin HCl (Glucophage) 1,000 mg PO BID-[facility] Last Admin: 10/09/19 08:50 Dose: 1,000 mg Metoprolol Tartrate (Lopressor) 12.5 mg PO BID COUNT INCLUDES THE [facility] Last Admin: 10/09/19 08:50 Dose: 12.5 mg Mineral Oil (Fleet Mineral Oil) 133 ml GA DAILYPRN PRN PRN Reason: Constipation Nitroglycerin (Nitrostat) 0.4 mg SL Q5MIN PRN PRN Reason: Chest Pain Pantoprazole Sodium (Protonix) 40 mg PO DAILY COUNT INCLUDES THE [facility] Last Admin: 10/09/19 08:52 Dose: 40 mg Polyethylene Glycol (Miralax) 17 gm PO DAILY COUNT INCLUDES THE [facility] Last Admin: 10/09/19 08:52 Dose: Not Given Potassium Chloride (Klor-Con 10) 10 meq PO QAM-[facility] Last Admin: 10/09/19 08:52 Dose: 10 meq Sodium Chloride (Flush - Normal Saline) 10 ml IVF Q12HR COUNT INCLUDES THE [facility] Last Admin: 10/09/19 08:52 Dose: 10 ml Sodium Chloride (Flush - Normal Saline) 10 ml IVF PRN PRN PRN Reason: Saline Flush Tramadol HCl (Ultram) 50 mg PO Q6H PRN PRN Reason: Moderate to Severe Pain (6-10) Last Admin: 10/08/19 17:09 Dose: 50 mg Vital Signs & Weight: Vital Signs Temp Pulse Resp BP Pulse Ox 10/09/19 12:08 97.5 F L 88 18 104/87 95 10/09/19 08:42 97.6 F 90 16 109/55 L 94 L 10/09/19 04:29 96 10/09/19 04:00 97.9 F 81 14 101/56 L 96 Admit Weight 143 lb 6.4 oz Weight 148 lb 1.6 oz - Medication Contraindications No Anticoagulant reason: Treatment not indicated (heparin) - Physical Exam General: alert & oriented x3 Neck: supple neck Cardiac: irregularly regular Lungs: decreased breath sounds Neuro: cranial nerve 2-12 intact Extremities: no edema - Labs Result Diagrams: 10/09/19 04:34 10/09/19 04:34 Troponin/CKMB CK-MB (CK-2) 12.4 ng/mL (0-6.6) H* 09/29/19 13:11 Troponin I 3.824 ng/mL (< 0.028) H* 09/29/19 22:06 - Telemetry Supraventricular conduction: atrial fibrillation - Assessment/Plan Assessment/Plan: 1. Severe CAD with s/p CABG x2 on 10/04/2019 - Lasix and Metolazone was given yesterday and this AM for SOB. She feels slightly more energy than yesterday; On 1LNC 2. s/p SVT - on low dose eliquis by CVS. Consider CV in the future if symptomatic or poor rate control. Could wait until she has recovered from her recent CABG. 3. Afib/Aflutter - on low dose eliquis by CVS. Consider CV in the future if symptomatic or poor rate control. Could wait until she has recovered from her recent CABG. 4. HTN - stable with current meds 5. HLD - on statin 6. DM type 2 MAR reviewed * From Cardiac standpoint, the pt is stable to tx to cardiac rehab * The pt will f/u with Dr Emmanuel' office in 2 wks
[2019-10-09 13:18] VITALS: BP 135/58
--- NOTE | 2019-10-10 09:33 | DIS ---
DATE OF ADMISSION: 09/29/2019 DATE OF DISCHARGE: 10/09/2019 HOSPITAL COURSE: This is an 88-year-old female, who was recently hospitalized for a hip fracture and was at rehab when she developed tachycardia and chest pain. She was transferred back here, where she was found to have severe coronary artery disease and SVT. She had a cardiac catheterization and simultaneous ablation. Postoperatively, she had some initial bradycardia, then sinus rhythm and then ultimately some atrial fibrillation. She was treated with beta blockers and low-dose Eliquis. Her postoperative course was otherwise notable only for some weight gain with her weight being 152 pounds compared to about 140 to 145 prior to admission. She did present with bilateral pleural effusions. Presently, she has some lower extremity edema. Her incisions are doing well, and she will be discharged on Lantus insulin 10 b.i.d., metformin 1000 b.i.d., Lasix 40 daily, potassium 10 daily, atorvastatin 40 daily, metoprolol 12.5 b.i.d., pantoprazole daily, and MiraLAX daily. She will also take a baby aspirin a day. Discharge and followup instructions have been given, and the patient will be transferred to rehab today to continue with her rehab course. Job ID: [id number]
--- NOTE | 2019-10-11 06:17 | PQF ---
CLINICAL DOCUMENTATION CLARIFICATION FORM: Dear : Ihsan Solomon Date / Time: 10/11/2019 06:18 Please exercise your independent, professional judgment in responding to the clarification form. Clinical indicators are provided on the bottom of this form for your review Please check appropriate box(es): HEART FAILURE: A. TYPE: [ ] Systolic / HFrEF [ ] Diastolic / HFpEF [ ] Combined Systolic / Diastolic [ ] Other diagnosis [ ] Unable to determine Physician Signature: Date/Time: For continuity of documentation, please document condition throughout progress notes and discharge summary. Thank You. To be completed by CDI/Coding staff for physician review: Present Clinical Indicators - Signs / Symptoms / Labs Results and Location in Medical Record [X] acute congestive heart failure HP 09/28 [X] concern for acute heart failure HP 09/28 [X] presented to the ER with Afib HP 09/28 [X] scattered crackles throughout bilateral lung field HP 09/28 [X] the patient has a mild bilateral JVD HP 09/28 [X] she has some mild lower extremity edema HP 09/28 [X] bilateral pleural fluid is again demonstrated Chest Xray 09/28 [X] EF 55-60% TTE 09/29 [X] Grade 3 diastolic dysfunction TTE 09/29 [X] volume overload PN 10/03 [X] Labs BNP: 09/2888=5388.7 09/2961=065.9 Labs 09/28 Present Risk Factors Results and Location in Medical Record [X] 88 years old female ED Notes 09/28 [X] DM ED Notes 09/28 [X] High Cholesterol ED Notes 09/28 [X] HTN HP 09/28 [X] Afib HP 09/28 [X] NSTEMI HP 09/28 [X] SVT Consult 09/28 [X] SSS Consult 09/28 [X] HLD Consult 09/28 [X] CAD OP Note 10/03 Present Treatments Results and Location in Medical Record [X] Chest Xray Collected 09/28 [X] [facility] [employer] 09/28 [X] Oxygen via NC HP 09/28 [X] Cardiology consult HP 09/28 [X] EPS with ablation OP Note 09/29 [X] TTE Collected 09/29 [X] Digoxin 0.5mg IV JUN 04 [X] Lasix 40mg IV JUN 04 CDS/Dogman/Woman Signature: Stevenson Alcala Phone #: ext [phone] Date/Time: 10/11/2019 06:15 This is a permanent part of the Medical Record [facility]
--- NOTE | 2019-10-11 06:20 | PQF ---
CLINICAL DOCUMENTATION CLARIFICATION FORM: Dear : Ihsan Solomon Date / Time: 10/11/2019 06:18 Please exercise your independent, professional judgment in responding to the clarification form. Clinical indicators are provided on the bottom of this form for your review Please check appropriate box(es): [ ] Associated Diagnosis: Pneumonitis [ ] Not clinically significant radiological findings [ ] Other diagnosis [ ] Unable to determine Physician Signature: Date/Time: For continuity of documentation, please document condition throughout progress notes and discharge summary. Thank You. To be completed by CDI/Coding staff for physician review: Present Clinical Indicators - Signs / Symptoms / Labs Results and Location in Medical Record [X] Chest Xray demonstrated patchy bibasilar density Which may represent atelectasis vs areas of pneumonitis HP 09/28 [X] scattered crackles throughout bilateral lung field HP 09/28 [X] bilateral pleural fluid is again demonstrated Chest Xray 09/28 [X] she was symptomatic with dyspnea and chest pain PN 09/30 [X] infiltrates at the right lung base Chest Xray 09/28 [X] Labs WBC: 10/03=13.4 10/04=13.9 10/05=12.6 Labs 10/03 Present Risk Factors Results and Location in Medical Record [X] 88 years old female ED Notes 09/28 [X] DM type 2 ED Notes 09/28 [X] Acute CHF HP 09/28 [X] NSTEMI HP 09/28 [X] GERD ED Notes 09/28 Present Treatments Results and Location in Medical Record [X] Chest Xray Collected 09/28 [X] Oxygen via NC HP 09/28 [X] IVF JUN 04 [X] Rocephin 1gm IV JUN 04 [X] Ciprofloxacin 500mg Oral JUN 04 CDS/Sitecore Developer Signature: Stevenson Alcala Phone #: ext [phone] Date/Time: 10/11/2019 06:18 This is a permanent part of the Medical Record [facility]
--- NOTE | 2019-10-11 06:58 | DIS ---
DATE OF ADMISSION: 09/29/2019 DATE OF DISCHARGE: 10/09/2019 ADMISSION DIAGNOSES: Status post fall with hip fracture, status post hip fracture fixation, readmission due to atrial fibrillation with RVR, history of coronary artery disease, atrial fibrillation with RVR. DISCHARGE DIAGNOSES: 1. Status post fall with hip fracture, status post hip fracture fixation, readmission, stable. 2. Atrial fibrillation with rapid ventricular response, rate controlled at the moment. 3. Coronary artery disease, status post coronary artery bypass grafting, stable. CONSULTING PHYSICIANS: 1. Dr. Lionel Emmanuel. 2. Dr. Smooth Villalobos. 3. Dr. Ihsan Solomon. PROCEDURES: Coronary artery bypass grafting x2, left internal mammary artery to 1.5 mm left anterior descending and saphenous vein grafting to 2 mm obtuse marginal. HOSPITAL COURSE: Ms. Summers is an 88-year-old female, readmission from hip fracture fixation earlier because the patient developed atrial fibrillation with RVR, severe coronary artery disease. The patient underwent coronary artery disease bypass grafting with Dr. Solomon. The patient tolerated the procedure well. Postop, the patient has been stable. Atrial fibrillation with RVR returned to rate control. She is able to work with physical therapy, occupational therapy. Pain is well controlled. She developed no fever or shortness of breath. She tolerated with her diet. PHYSICAL EXAMINATION: GENERAL: Currently, the patient is lying in bed comfortable with no acute respiratory distress. VITAL SIGNS: Temperature 98.7, heart rate 78, respiratory rate 18, O2 saturation 96% on 1 L, blood pressure 126/59. LUNGS: Clear bilaterally. HEART: Regular rate and rhythm. Postop dressing is clean and dry. ABDOMEN: Soft, nondistended. EXTREMITIES: Neurovascularly intact x4. NEUROLOGY: No focal neurology deficits. DISCHARGE DISPOSITION: Rehabilitation facility. DISCHARGE CONDITION: Fair. DISCHARGE INSTRUCTIONS: The patient is to see Dr. Solomon in 14 days. The patient is to see Dr. Emmanuel in 3 to 4 weeks. The patient will also need cardiac rehab in [place]. DISCHARGE MEDICATIONS: 1. Tramadol. 2. Metformin. 3. MiraLAX. 5. Insulin. 8. Furosemide. 9. Atorvastatin. 10. Aspirin. 11. Eliquis. 12. Tylenol. Job ID: [id number] [facility]
== END 2019-10-09 15:35 | DRG 234 ==
LOC: ERS 12:51 → IMCU/EMU 14:56 → 2NO 10-02 15:24 → CCU 10-04 10:46 → 2NO 10-05 09:52
PROVIDERS: ADMIT Surgery; ATTEND Surgery
PROC: 4A023N7 Measurement of Cardiac Sampling and Pressure, Left Heart, Percutaneous Approach (ICD-10-PCS; principal; 2019-09-30)
PROC: B2111ZZ Fluoroscopy of Multiple Coronary Arteries using Low Osmolar Contrast (ICD-10-PCS; 2019-09-30)
PROC: B2151ZZ Fluoroscopy of Left Heart using Low Osmolar Contrast (ICD-10-PCS; 2019-09-30)
PROC: 4A033BC Measurement of Arterial Pressure, Coronary, Percutaneous Approach (ICD-10-PCS; 2019-09-30)
PROC: 02583ZZ Destruction of Conduction Mechanism, Percutaneous Approach (ICD-10-PCS; 2019-09-30)
PROC: 4A023FZ Measurement of Cardiac Rhythm, Percutaneous Approach (ICD-10-PCS; 2019-09-30)
PROC: 4A0234Z Measurement of Cardiac Electrical Activity, Percutaneous Approach (ICD-10-PCS; 2019-09-30)
PROC: 02K83ZZ Map Conduction Mechanism, Percutaneous Approach (ICD-10-PCS; 2019-09-30)
PROC: 02100Z9 Bypass Coronary Artery, One Artery from Left Internal Mammary, Open Approach (ICD-10-PCS; 2019-10-04)
PROC: 021009W Bypass Coronary Artery, One Artery from Aorta with Autologous Venous Tissue, Open Approach (ICD-10-PCS; 2019-10-04)
PROC: 06BQ0ZZ Excision of Left Saphenous Vein, Open Approach (ICD-10-PCS; 2019-10-04)
PROC: 5A1221Z Performance of Cardiac Output, Continuous (ICD-10-PCS; 2019-10-04)
DX: I21.4 Non-ST elevation (NSTEMI) myocardial infarction (principal); I47.1 Supraventricular tachycardia; N39.0 Urinary tract infection, site not specified; E87.1 Hypo-osmolality and hyponatremia; D64.9 Anemia, unspecified; K21.9 Gastro-esophageal reflux disease without esophagitis; E11.9 Type 2 diabetes mellitus without complications; E78.00 Pure hypercholesterolemia, unspecified; D25.9 Leiomyoma of uterus, unspecified; Z96.643 Presence of artificial hip joint, bilateral; I48.91 Unspecified atrial fibrillation; I11.0 Hypertensive heart disease with heart failure; I50.9 Heart failure, unspecified; E83.42 Hypomagnesemia; I49.5 Sick sinus syndrome; E78.5 Hyperlipidemia, unspecified; I25.10 Atherosclerotic heart disease of native coronary artery without angina pectoris; I27.20 Pulmonary hypertension, unspecified; I08.1 Rheumatic disorders of both mitral and tricuspid valves; I49.3 Ventricular premature depolarization; Z86.73 Personal history of transient ischemic attack (TIA), and cerebral infarction without residual deficits; Z90.710 Acquired absence of both cervix and uterus; Z98.42 Cataract extraction status, left eye; Z98.41 Cataract extraction status, right eye; Z79.82 Long term (current) use of aspirin; Z79.899 Other long term (current) drug therapy; Z79.4 Long term (current) use of insulin; Z91.81 History of falling
CPT/HCPCS: 36415; 36416; 36430; 36600; 51702; 71045; 71275; 76942; 80048; 80053; 81003; 81015; 82550; 82553; 82947; 83036; 83605; 83690; 83735; 83880; 84100; 84484; 85014; 85018; 85025; 85027; 85049; 85379; 85610; 85730; 86850; 86900; 86901; 87040; 87077; 87086; 87186; 87635; 93005; 93010; 93306; 93458; 93613; 93621; 93653; 93798; 93970; 94760; 96361; 96365; 96372; 96374; 96375; 97139; C1730; J0153; J0690; J0696; J1100; J1160; J1642; J1644; J1650; J1815; J1885; J1940; J2250; J2370; J2405; J2440; J2704; J2720; J3010; J3370; J3475; J3480; J3490; P9016; P9035; P9045; Q9967; S0017; S0028; U0003

== ENCOUNTER 2019-12-27 10:59 | Inpatient (IN) | payer MEDICARE, OTHER ==
[~2019-12-27 10:59] MED LIST: Iopamidol-370 76% 500 ML 1 ML ONE
[2019-12-27 12:14] LABS: #Eosinphils 0.1 thou/uL (0.0-0.7); #Lymphocytes 0.8 thou/uL (1.20-3.40); #Monocytes 0.8 thou/uL (0.11-0.59); #Neutrophils 5.4 thou/uL (1.40-6.50); %Basophils 0.7 % (0.0-1.0); %Eosinophils 1.3 % (0.0-10.0); %Lymphocytes 11.1 % (21.0-51.0); %Neutrophils 75.9 % (42.0-75.0); Hemoglobin 12.4 g/dL (12.0-16.0); Mean Corpuscular HGB CONC 32.1 g/dL (32.0-36.0); Mean Corpuscular Hemoglobin 30.2 pg (27.0-31.0); Mean Platelet Volume 8.1 fL (7.4-10.4); Platelet Count 345 thou/uL (130-400); RBC Distribution Width 13.9 % (11.5-14.5); Red Blood Cell (RBC) Count 4.09 mill/uL (4.20-5.40); White Blood Cell (WBC) Count 7.2 thou/uL (4.8-10.8)
[2019-12-27 12:38] LABS: ALT (SGPT) 12 U/L (8-55); AST (SGOT) 10 U/L (5-34); Albumin 3.7 g/dL (3.4-4.8); Alkaline Phosphatase 82 U/L (40-110); Anion Gap 14 mmol/L (10-20); BUN (Urea Nitrogen) 12 mg/dL (9.8-20.1); Bilirubin, Total 0.6 mg/dL (0.2-1.2); Calc. Creatinine Clearance 0 mL/min (70-130); Calcium 8.9 mg/dL (7.8-10.44); Carbon Dioxide 27 mmol/L (23-31); Chloride 92 mmol/L (98-107); Estimated GFR-MDRD 67; Glucose 227 mg/dL (83-110); Potassium 4.5 mmol/L (3.5-5.1); Protein, Total 6.7 g/dL (6.0-8.3); Sodium 128 mmol/L (136-145)
[2019-12-27] MEDS ORDERED: Furosemide 40 MG/4 ML VIAL ONE (12:38)
[2019-12-27] MEDS ORDERED: Nitroglycerin 2% Ointment 1 INCH/1 GM Packet ONE (12:38)
[2019-12-27 12:48] LABS: SARS-CoV-2 NAA Rapid Test Not Detected (NotDetected)
--- NOTE | 2019-12-27 13:41 | CT ---
CT arteriogram chest with IV contrast and 3-D imaging HISTORY: Dyspnea. Cough. COMPARISON: 09/29/2019. FINDINGS: There is good contrast opacification of the pulmonary arteries. Thoracic aorta is incomplet wali opacified. Normal branching of the great vessels at the aortic arch. Subtle patchy infiltrate with groundglass opacity is present at the right lung apex. Less prominent p atchy peripheral groundglass opacity within the lower portion of the right upper lobe. Moderate amount of left pleural fluid. Minimal right pleural fluid. No pneumothorax. Calcification throughout the arterial structures. A 1.7 cm exophytic cyst projects from the lateral margin of the superior pole right kidney. L1 verteb ral compression deformity is stable. IMPRESSION : No CT evidence of pulmonary embolus. Dyspnea likely caused by left pleural effusion, moderate size. Mild multifocal groundglass peripheral parenchymal opacity involving the right upper lobe. Clinical c orrelation regarding other signs and symptoms of viral pneumonitis is required.
--- NOTE | 2019-12-27 13:43 | RAD ---
CHEST 1 VIEW: INDICATION: History of chest pain. COMPARISON: Prior exam dated 10/05/2019. FINDINGS: There is a large left-sided pleural effusion. There is a tiny right pleural effusion. There is incr eased opacity in the left lung predominantly in the mid and left lower lobe. Right lung is predomina ntly clear. There is mild cardiomegaly. There are midline sternotomy changes. No acute osseous abn ormality is evident. IMPRESSION: 1. Worsening left-sided pleural effusion with airspace disease of the left mid lung and left lower l obe possibly related to atelectasis. 2. Component of congestive heart failure is not excluded. POS: BH
[2019-12-27 14:08] LABS: Bacteria/HPF None Seen HPF (None Seen); Bilirubin Negative (Negative); Blood, Urine Negative (Negative); Clarity Clear (Clear); Glucose, Urine (Dipstick) Normal (Negative); Ketone, Urine Negative (Negative); Leukocyte 250 Leu/uL (Negative); Nitrite Negative (Negative); Protein, Urine (Dipstick) Negative (Neg-Trace); RBC/HPF 0-3 HPF (0-3); Specific Gravity, Urine 1.014 (1.002-1.036); Squamous Epithelial 0-3 HPF (0-3); Urobilinogen Normal mg/dL (Less than 2)
[2019-12-27 15:29] LABS: Magnesium 1.5 mg/dL (1.6-2.6); Phosphorus 3.6 mg/dL (2.3-4.7)
[2019-12-27] MEDS ORDERED: Bisacodyl 10 MG SUPP PR PRN (15:45)
[2019-12-27] MEDS ORDERED: Calcium Carbonate 500 MG ChewTAB PO PRN (15:45)
[2019-12-27] MEDS ORDERED: Acetaminophen 325 MG TAB PO PRN (15:45)
[2019-12-27 15:57] LABS: Troponin I Less than 0.010 ng/mL (< 0.028)
[2019-12-27 16:29] VITALS: BMI 21.7
--- NOTE | 2019-12-27 16:36 | HP ---
PRIMARY CARE PHYSICIAN: Sophie Lawrence DO at [facility]. PRIMARY ORDNANCE ENGINEERING TECHNICIAN: Lionel Emmanuel MD CHIEF COMPLAINT: Shortness of breath with generalized weakness of 1 week duration. HISTORY OF PRESENT ILLNESS: The patient is an 89-year-old female with chronic diastolic heart failure, coronary artery disease, status post coronary artery bypass grafting 2 months ago, presented to the emergency room with above complaints. Over the last 1 week, the patient developed gradual worsening shortness of breath along with bilateral lower extremity swelling and generalized weakness. She was short of breath on minimal exertion, which was different from her baseline. She had mild cough, which was essentially dry. No fever, chills, dysuria, hematuria, urgency, nausea, vomiting, diarrhea, or syncope reported. Most of the history was obtained from the son at the bedside. The patient has been drinking lot of fluid recently. Her Lasix dose was reduced to 20 mg daily recently since the patient was complaining of increased urination. She was also recently started on Multaq. In the emergency room, her initial vital signs showed temperature 98.7 with respirations of 18, pulse rate of 79 with a blood pressure of 167/63 with O2 saturation of 93% on room air. She was placed on 2 L nasal oxygen supplementation with some improvement. She underwent a CT angiogram of the chest due to elevated D-dimer that was consistent with worsening left-sided pleural effusion with airspace disease of the left mid lung and left lower lobe, probably related to atelectasis. Her COVID-19 testing was negative. She received 40 mg IV Lasix and nitroglycerin patch was placed. PAST MEDICAL HISTORY: 1. Coronary artery disease, status post CABG in September 2019. 2. Chronic diastolic heart failure. 3. Diabetes mellitus type 2. 4. Hypertension. 5. Hyperlipidemia. 6. Uterine fibroids. 7. Recent hip fracture requiring surgical intervention. PAST SURGICAL HISTORY: 1. Bilateral hip replacement. 2. Tonsillectomy. 3. Total hysterectomy. 4. Coronary artery bypass grafting. 5. Cardiac catheterization. ALLERGIES: THE PATIENT DENIES ANY DRUG ALLERGIES. CURRENT MEDICATIONS: 1. Multaq 400 mg b.i.d. 2. Glimepiride 2 mg daily. 3. Carvedilol 3.125 mg b.i.d. 4. Lasix recently reduced to 20 mg daily. 5. Protonix 40 mg daily. 6. Aspirin 81 mg daily. 7. Eliquis 2.5 mg b.i.d. 8. Ferrous sulfate 325 mg b.i.d. 9. Potassium chloride 10 mEq daily. 10. Lipitor 20 mg at bedtime. 11. Melatonin as needed. SOCIAL HISTORY: The patient currently lives at home with her family. She ambulates with the help of a cane. She does not have home health care at this time. No smoking, alcohol, or drug use reported. FAMILY HISTORY: Negative for premature coronary artery disease. CODE STATUS: Was verified as full. The son, Asa Mejia is the DPOA. REVIEW OF SYSTEMS: All other review of systems was reviewed and was found negative. PHYSICAL EXAMINATION: VITAL SIGNS: As discussed above. GENERAL: An 89-year-old female, ill-appearing, in zvaz-cy-vyhgyjgr respiratory distress, able to complete short phrases. HEENT: Head, atraumatic and normocephalic. Sclerae anicteric. Moist mucous membranes. No oral lesion. NECK: Supple. JVD elevated. No carotid bruits. LUNGS: Show diminished air entry at the left base with scattered rales. HEART: S1 and S2 present. Irregularly irregular. No rubs or gallops. ABDOMEN: Soft, nontender. Bowel sounds present. No shifting dullness. EXTREMITIES: 2+ edema in bilateral lower extremities. No calf tenderness. SKIN: Warm and dry. LYMPH NODES: No palpable lymph nodes in the neck. PERIPHERAL VASCULAR: Radial pulses palpable bilaterally. MUSCULOSKELETAL: No joint swelling or tenderness. NEUROLOGIC: Grossly nonfocal. Moves all 4 extremities. PSYCHIATRY: Alert, awake, oriented x3. LABORATORY FINDINGS: CBC showed WBC 7.2 with hemoglobin 12.4, hematocrit 38.5 with platelet 344. D-dimer 3.43. Chemistry showed sodium 128, potassium 4.5, chloride 92, bicarb 27, BUN 12, creatinine 0.81, magnesium was 1.5, phosphorus was 3.6. BNP was 268. Urinalysis was negative for bacteria. It showed 4 to 6 wbc's. Rapid COVID-[address] angiogram of the chest by my review as discussed above. EKG by my review showed atrial fibrillation, rate controlled with nonspecific ST-T wave changes. IMPRESSION: 1. Acute hypoxic respiratory failure secondary to utebz-ua-xalazum diastolic heart failure exacerbation. Recent echocardiogram showed ejection fraction 55% to 60% with moderate concentric left ventricular hypertrophy and grade 3 diastolic dysfunction. 2. Coronary artery disease, status post coronary artery bypass graft in September 2019. 3. Generalized weakness with fatigue secondary to above. 4. Utoebial-ck-zahgkd tricuspid regurgitation. 5. Diabetes mellitus type 2. 6. Hypertension. 7. Dyslipidemia. 8. Hypomagnesemia. 9. Hyponatremia. 10. Chronic kidney disease, stage 2. 11. Physical deconditioning. 12. Left hip fracture earlier this year secondary to fall, status post surgery. 13. Glaucoma. 14. Gastroesophageal reflux disease. PLAN: The patient will be monitored in the telemetry unit. Cardiology and Pulmonary will be consulted. Serial troponins will be obtained. We will continue aspirin. We will hold Eliquis for possible thoracentesis. We will add fluid restriction. We will consult Cardiovascular Team. Consult Physical Therapy and Occupational Therapy. Replace magnesium. Recheck labs on a daily basis. Hold Multaq for now due to symptomatic heart failure. Resume other medications carefully. The patient and the family understand the above plan of care. Job ID: [id number]
[2019-12-27 16:41] LABS: Fluid, Triglycerides 25 mg/dL (Not Available); Pleural Fluid, Amylase Less than 30 U/L (Not Available); Pleural Fluid, Glucose 217 mg/dL; Pleural Fluid, LDH 126 U/L (Not Available); Pleural Fluid, Protein 3.2 g/dL
[2019-12-27] MEDS ORDERED: Magnesium Sulfate 4 GM in Sodium Chloride 0.9% 250 ML 250 ML IVPB SCH (17:00)
--- NOTE | 2019-12-27 17:00 | RAD ---
Exam: Chest one view HISTORY:Pneumonia. Comparison: 12/27/2019 FINDINGS: Cardiac silhouette:Upper normal cardiac silhouette. There are sternotomy wires. Aorta: Atherosclerotic Pulmonary vessels: Normal Costophrenic angles: Small left-sided effusion. LUNGS: Patchy interstitial and alveolar opacities the lung parenchyma, without mass or consolidation. Pneumothorax: None Osseous abnormalities: None IMPRESSION: 1. Atherosclerosis 2. Small effusion. Patchy interstitial and alveolar opacities. Correlate for edema.
[2019-12-27 18:19] LABS: RBC Count-Automated (BF) 463959 /cu.mm; WBC/Nucleated-Auto (BF) 2787 uL
[2019-12-27 18:26] LABS: BF Color Red; Body Fluid Source Thoracentesis Fluid; Clarity Cloudy/Turbid (Clear); Tube # EDTA
[2019-12-27] MEDS: Ferrous Sulfate 325 MG TAB PO SCH (18:27)
[2019-12-27] MEDS: Furosemide 20 MG/2 ML VIAL SLOW IVP SCH (18:27)
[2019-12-27] MEDS: Potassium Chloride 10 MEQ TAB PO SCH (18:27)
[2019-12-27 18:33] LABS: BF Segmented Neutrophils 11 %; Cell Count Non Hematic 63 %; Lymphocytes 26 %
[2019-12-27] MEDS: Atorvastatin Calcium 20 MG TAB PO SCH (21:09)
[2019-12-27] MEDS: Carvedilol 3.125 MG TAB PO SCH (21:09)
[2019-12-27] MEDS: Latanoprost 0.005% Ophth Soln 2.5 ml Bottle EA EYE SCH (21:09)
[2019-12-27] MEDS: Acetaminophen 325 MG TAB PO PRN (21:09)
[2019-12-27] MEDS: Senokot S 8.6-50 MG TAB PO SCH (21:10)
[2019-12-27] MEDS: Melatonin 3 MG TAB PO PRN (21:11)
--- NOTE | 2019-12-27 22:28 | OP ---
DATE OF PROCEDURE: 12/27/2019 PROCEDURE PERFORMED: Left thoracentesis. PREOPERATIVE DIAGNOSIS: Left pleural effusion. POSTOPERATIVE DIAGNOSIS: Left pleural effusion. ANESTHESIA: 1% lidocaine without epinephrine. DESCRIPTION OF PROCEDURE: Informed consent was obtained from the patient and her son prior to the procedure. They were shown the x-rays films demonstrating pleural effusion. I went over the risks of the procedure including bleeding, infection, and external lung puncture. They agreed to proceed. The left posterior hemithorax was scrubbed with chlorhexidine and draped sterilely. The patient was placed in a sitting position. Anesthesia was applied approximately the 5th and 6th interspace at the lateral scapular line on the left side. A [id number]-F-[id number] catheter was inserted into the chest after local anesthetic had been applied. Approximately 1300 mL of bloody pleural fluid was removed and sent for appropriate studies. She tolerated the procedure well. Job ID: [id number]
--- NOTE | 2019-12-27 22:33 | CON ---
DATE OF CONSULTATION: 12/27/2019 REASON FOR CONSULTATION: Shortness of breath. HISTORY OF PRESENT ILLNESS: The patient is an 89-year-old female, who presents to the ER with several weeks of increasing shortness of breath. She was worked up and found to have a fairly sizable left-sided pleural effusion, which I was asked to see and evaluate. This patient had coronary artery bypass grafting surgery back in September. She was transferred home shortly after. She said she has been short of breath since surgery. PAST MEDICAL HISTORY: 1. Diabetes mellitus. 2. Hypertension. 3. Hyperlipidemia. 4. Coronary artery disease. PAST SURGICAL HISTORY: Coronary artery bypass grafting surgery, hip fracture repair, hysterectomy, and tonsillectomy. SOCIAL HISTORY: Nonsmoker. Does not consume alcohol. Actually fairly independent for 89 years old. MEDICATIONS: Reviewed. See chart. ALLERGIES: NONE. REVIEW OF SYSTEMS: Remarkable for shortness of breath and dyspnea with exertion. PHYSICAL EXAMINATION: VITAL SIGNS: Temperature 98.7, blood pressure 123/87, respiratory rate 20, and O2 saturation is 92% on 3 L. GENERAL: She is awake and alert, in no acute distress. HEENT: Unremarkable. NECK: No adenopathy or JVD. CARDIAC: Irregularly irregular without murmur. LUNGS: Diminished breath sounds, left base. Dullness to percussion, left base. Right side fairly clear. ABDOMEN: Soft and nontender. EXTREMITIES: No clubbing or cyanosis. She has 1+ edema. LABORATORY DATA: White count is 7.2, hematocrit 38.5, and platelet count 345. Sodium 128, potassium 4.5, chloride 92, CO2 of 27, BUN 12, creatinine 0.8, and glucose 227. BNP 268. COVID test was negative. X-ray and CT scan were reviewed, which showed sizable left pleural effusion. ASSESSMENT: Dyspnea secondary to massive left pleural effusion. PLAN: 1. Diagnostic and therapeutic left thoracentesis-see separate operative note. 2. Hold any anticoagulation for at least the next two weeks. Job ID: [id number]
[2019-12-28] MEDS: Furosemide 20 MG/2 ML VIAL SLOW IVP SCH ×3 (00:30→14:22)
[2019-12-28 03:04] LABS: Fluid, pH - Pleural Fld Greater than 7.50 (7.60 - 7.66)
[2019-12-28 04:53] LABS: #Eosinphils 0.1 thou/uL (0.0-0.7); #Lymphocytes 0.9 thou/uL (1.20-3.40); #Monocytes 0.6 thou/uL (0.11-0.59); #Neutrophils 5.2 thou/uL (1.40-6.50); %Basophils 0.3 % (0.0-1.0); %Lymphocytes 13.6 % (21.0-51.0); %Monocytes 9.2 % (0.0-10.0); %Neutrophils 75.9 % (42.0-75.0); Hemoglobin 10.4 g/dL (12.0-16.0); Mean Corpuscular HGB CONC 32.5 g/dL (32.0-36.0); Mean Corpuscular Hemoglobin 30.3 pg (27.0-31.0); Mean Corpuscular Volume 93.3 fL (78.0-98.0); Mean Platelet Volume 8.1 fL (7.4-10.4); Platelet Count 297 thou/uL (130-400); RBC Distribution Width 13.7 % (11.5-14.5); Red Blood Cell (RBC) Count 3.44 mill/uL (4.20-5.40); White Blood Cell (WBC) Count 6.9 thou/uL (4.8-10.8)
[2019-12-28 05:12] LABS: Albumin 2.8 g/dL (3.4-4.8); Anion Gap 10 mmol/L (10-20); BUN (Urea Nitrogen) 11 mg/dL (9.8-20.1); BUN/Creatinine Ratio 15.71; Calc. Creatinine Clearance 50 mL/min (70-130); Carbon Dioxide 31 mmol/L (23-31); Chloride 93 mmol/L (98-107); Estimated GFR-MDRD 79; Glucose 182 mg/dL (83-110); Magnesium 2.1 mg/dL (1.6-2.6); Phosphorus 3.8 mg/dL (2.3-4.7); Potassium 3.5 mmol/L (3.5-5.1); Sodium 130 mmol/L (136-145)
[2019-12-28] MEDS ORDERED: Dextrose 50% Abboject 50 ML SYRINGE SLOW IVP PRN (07:41)
[2019-12-28] MEDS ORDERED: Insulin Regular 300 UNITS/3 ML VIAL SC PRN (07:41)
[2019-12-28] MEDS ORDERED: Dextrose 5% in Water 1,000 ML IV PRN (07:41)
[2019-12-28] MEDS: Senokot S 8.6-50 MG TAB PO SCH ×2 (09:20→21:35)
[2019-12-28] MEDS: Ferrous Sulfate 325 MG TAB PO SCH ×2 (09:20→17:54)
[2019-12-28] MEDS: Carvedilol 3.125 MG TAB PO SCH ×2 (09:20→21:28)
[2019-12-28] MEDS: Potassium Chloride 10 MEQ TAB PO SCH ×2 (09:20→17:54)
--- NOTE | 2019-12-28 09:47 | PRG ---
DATE OF SERVICE: 12/28/2019 SUBJECTIVE: She is doing well. Breathing much better. She has a little bit of pain at the site where we did a thoracentesis. OBJECTIVE: VITAL SIGNS: Temperature 97.6, pulse 87, respirations 19, O2 saturation 94% on 1 L, blood pressure 111/58. HEENT: Unremarkable. NECK: No adenopathy or JVD. LUNGS: Fairly clear bilaterally. CARDIOVASCULAR: S1 and S2, regular. ABDOMEN: Soft. EXTREMITIES: No edema. IMAGING STUDIES: Her chest x-ray shows gross improvement in the pleural effusion. LABORATORY DATA: Sodium 138, potassium 3.5, BUN 11, creatinine 0.7, and glucose 182. White blood cell count 6.9, hematocrit 32.1, and platelet count 297. ASSESSMENT: Left pleural effusion-post coronary artery bypass grafting and probably aggravated by being on anticoagulation. PLAN: The effusion has been drained. It is a bloody exudate. I would recommend she be off Eliquis and aspirin for at least 2 weeks. She needs repeat imaging in 3 to 4 weeks to make sure this does not recur. Also need to follow up on cytology, although I doubt this is malignancy. From my standpoint, she is okay to discharge at any time. Job ID: [id number]
--- NOTE | 2019-12-28 14:01 | CON ---
DATE OF CONSULTATION: REASON FOR CONSULTATION: Shortness of breath and atrial fibrillation. HISTORY OF PRESENT ILLNESS: Ms. Summers is a very pleasant 89-year-old woman, whom I have seen and evaluated in the past. She has a history of CAD, status post bypass surgery. This was in September of 2019. She recently presented with increased shortness of breath. CT scan confirmed a moderate-sized left-sided pleural effusion. She underwent thoracentesis yesterday by Dr. Dale Lorenzo and has significant relief. She does have underlying atrial fibrillation. She has been on anticoagulation therapy for atrial fibrillation since September. She denies chest pain or pressure. During my visit today after thoracentesis, she is feeling much better. PAST MEDICAL HISTORY: CAD, status post bypass surgery, hyperlipidemia, hypertension, diabetes mellitus, atrial fibrillation, AVNRT, status post ablation, [id number]-[id number] TR, pulmonary hypertension. HOME MEDICATIONS: Include; 1. Carvedilol. 2. Atorvastatin. 3. Eliquis. 4. Multaq. 5. Mucinex. 6. Lasix. 7. Metformin. 8. Vitamin C. 9. Glipizide. 10. Aspirin. 11. Pantoprazole. 12. Iron sulfate. 13. Potassium. PAST SURGICAL HISTORY: CABG x2, hip replacement, tonsillectomy, hysterectomy, and AV wade ablation. SOCIAL HISTORY: No current tobacco or alcohol use. REVIEW OF SYSTEMS: Ten-point review of systems is reviewed and as above, otherwise negative. PHYSICAL EXAMINATION: GENERAL: Patient is a pleasant female, who is in no acute distress. The patient appears their stated age. VITAL SIGNS: Blood pressure 105/60, pulse 89, and temperature 97.6. NEUROLOGIC: The patient is alert and oriented x3 with no focal neurologic deficits. HEENT: Sclerae without icterus. Mouth has moist mucous membranes with normal pallor. NECK: No JVD. Carotid upstroke brisk. No bruits bilaterally. LUNGS: Clear to auscultation with unlabored respirations. BACK: No scoliosis or kyphosis. CARDIAC: Irregularly irregular. ABDOMEN: Soft, nontender, nondistended. No peritoneal signs present. No hepatosplenomegaly. No abnormal striae. EXTREMITIES: 2+ femoral and 2+ dorsalis pedis pulses. No cyanosis, clubbing, or edema. SKIN: No gross abnormalities. IMAGING DATA: Most recent echo, LVEF 50% to 55%, diastolic dysfunction not determined due to atrial fibrillation. Moderate pulmonary hypertension. PERTINENT LABORATORY DATA: Hemoglobin 10.4, hematocrit 32.1. Creatinine 0.7. IMPRESSION: 1. Shortness of breath. 2. Atrial fibrillation. 3. Pleural effusion. 4. Coronary artery disease. 5. Status post bypass surgery. RECOMMENDATIONS: Ms. Summers did undergo recent thoracentesis and feels much better. Her hemoglobin appears stable. We will continue atorvastatin in addition to carvedilol and IV Lasix. We will anticipate she will be near baseline tomorrow. We will anticipate discharge soon. We will hold paymio. Continue aspirin. Job ID: [id number]
[2019-12-28] MEDS: Insulin Regular 300 UNITS/3 ML VIAL SC PRN (14:28)
--- NOTE | 2019-12-28 20:48 | PDOC.HOSPP ---
- Subjective Encounter Date: 12/28/19 Encounter Time: 09:30 Subjective: Patient seen and examined for congestive heart failure exacerbation along with pleural effusion. Underwent thoracentesis yesterday. Shortness of breath improving. No fever or chills. - Objective Vital Signs & Weight: Vital Signs (12 hours) Temp Pulse Resp BP Pulse Ox 12/28/19 20:00 97.8 F 89 16 98/55 L 96 12/28/19 15:46 97.7 F 80 25 H 103/60 97 12/28/19 14:32 104/56 L 12/28/19 11:48 97.6 F 89 16 105/60 94 L 12/28/19 09:20 99 Weight Weight 129 lb I&O: 12/27/19 12/28/19 12/29/19 06:59 06:59 06:59 Intake Total 200 580 Output Total 1200 1750 Balance -1000 -1170 Result Diagrams: 12/28/19 14:16 12/28/19 04:38 Additional Labs: Accuchecks 12/28/19 12/28/19 12/28/19 16:56 14:32 10:56 POC Glucose 139 H 252 H 282 H Radiology Reviewed by me: Yes (Chest x-rayreviewed) EKG Reviewed by me: Yes (Atrial fibrillation on telemetry) Hospitalist ROS - Review of Systems Respiratory: reports: cough, dry, SOB with excertion. denies: shortness of breath, hemoptysis, pleuritic pain, sputum, wheezing, other Cardiovascular: denies: chest pain, palpitations, orthopnea, paroxysmal noc. dyspnea, edema, light headedness, other All other systems reviewed; all pertinent +/- noted in HPI/Subj - Medication Medications: Active Medications Generic Name Dose Route Start Last Admin Trade Name Freq PRN Reason Stop Dose Admin Acetaminophen 650 mg 12/27/19 15:51 12/27/19 21:09 Acetaminophen 325 Mg Tab PO 650 mg Q6H PRN Administration Headache/Fever Or Mild Pain Atorvastatin Calcium 20 mg 12/27/19 21:00 12/27/19 21:09 Atorvastatin Calcium 20 Mg Tab PO 20 mg HS EMILY Administration Carvedilol 3.125 mg 12/27/19 21:00 12/28/19 09:20 Carvedilol 3.125 Mg Tab PO 3.125 mg BID EMILY Administration Ferrous Sulfate 325 mg 12/27/19 17:00 12/28/19 17:54 Ferrous Sulfate 325 Mg Tab PO 325 mg BID-WM EMILY Administration Furosemide 20 mg 12/28/19 14:00 12/28/19 14:22 Furosemide 20 Mg/2 Ml Vial SLOW IVP 20 mg 0600,1400 EMILY Administration Insulin Human Regular 0 units 12/28/19 07:41 12/28/19 14:28 Insulin Regular 300 Units/3 Ml Vial SC 6 unit .MODERATE SLIDING SC PRN Administration Moderate Correctional Scale Latanoprost 1 drop 12/27/19 21:00 12/27/19 21:09 Latanoprost 0.005% Ophth Soln 2.5 Ml Bottle EA EYE 1 drop HS EMILY Administration Melatonin 3 mg 12/27/19 15:51 12/27/19 21:11 Melatonin 3 Mg Tab PO 3 mg HSPRN PRN Administration Insomnia Pantoprazole Sodium 40 mg 12/28/19 09:00 12/28/19 09:20 Pantoprazole 40 Mg Tab PO 40 mg DAILY EMILY Administration Potassium Chloride 20 meq 12/27/19 17:00 12/28/19 17:54 Potassium Chloride 10 Meq Tab PO 20 meq BID-WM EMILY Administration Senna/Docusate Sodium 1 tab 12/27/19 21:00 12/28/19 09:20 Senokot S 8.6-50 Mg Tab PO 1 tab BID EMILY Administration - Exam General Appearance: ill appearing Eye: PERRL, anicteric sclera ENT: normocephalic atraumatic Neck: supple, symmetric, no JVD, no thyromegaly Heart: no gallops, no rubs, normal peripheral pulses, irregular Respiratory: no wheezes, normal chest expansion, rales, rhonchi Gastrointestinal: soft, non-tender, non-distended, normal bowel sounds, no guarding, no rigidity Extremities: no cyanosis, no clubbing, 1+ LE edema Extremities - other findings: No calf tenderness Neurological: no new deficit Psychiatric: normal affect, A&O x 3 Hosp A/P - Plan DVT proph w/SCDs 1. Acute hypoxic respiratory failure secondary to kassc-hg-iegrogv diastolic heart failure exacerbation. Recent echocardiogram showed ejection fraction 55% to 60% with moderate concentric left ventricular hypertrophy and grade 3 diastolic dysfunction. 2. Coronary artery disease, status post coronary artery bypass graft in September 2019. 3. Generalized weakness with fatigue secondary to above. 4. Acute blood loss anemia due to hemothorax. 5. Diabetes mellitus type 2. 6. Hypertension. 7. Dyslipidemia. 8. Hypomagnesemia. 9. Hyponatremia. 10. Chronic kidney disease, stage 2. 11. Physical deconditioning. 12. Left hip fracture earlier this year secondary to fall, status post surgery. 13. Glaucoma. 14. Gastroesophageal reflux disease. 15. Ussnhhys-ye-hpwzmb tricuspid regurgitation. PLAN: 12/27 Hemoglobin 10.4 today from 12.4. Will recheck later today. Type and screen for possible need for blood transfusion. Reduce Lasix to 20 mg bid. Continue carvedilol. Restart glimepiride at 1 mg daily. Replace potassium. Continue physical therapy occupational therapy. Cardiology and pulmonary input appreciated. Await cytology from thoracentesis. Hold aspirin and Eliquis per pulmonary recommendation. Home health care evaluation. Continue fluid restriction. Recheck labs in a.m.
[2019-12-28] MEDS: Atorvastatin Calcium 20 MG TAB PO SCH (21:28)
[2019-12-28] MEDS: Acetaminophen 325 MG TAB PO PRN (21:28)
[2019-12-28] MEDS: Melatonin 3 MG TAB PO PRN (21:28)
[2019-12-28] MEDS: Latanoprost 0.005% Ophth Soln 2.5 ml Bottle EA EYE SCH (21:29)
[2019-12-29] MEDS: Furosemide 20 MG/2 ML VIAL SLOW IVP SCH ×2 (05:13→14:43)
[2019-12-29 05:14] LABS: #Eosinphils 0.2 thou/uL (0.0-0.7); #Lymphocytes 0.9 thou/uL (1.20-3.40); #Monocytes 0.8 thou/uL (0.11-0.59); #Neutrophils 4.3 thou/uL (1.40-6.50); %Basophils 0.6 % (0.0-1.0); %Eosinophils 3.2 % (0.0-10.0); %Lymphocytes 14.3 % (21.0-51.0); %Neutrophils 68.8 % (42.0-75.0); Hemoglobin 10.7 g/dL (12.0-16.0); Mean Corpuscular Hemoglobin 30.7 pg (27.0-31.0); Mean Corpuscular Volume 92.9 fL (78.0-98.0); Mean Platelet Volume 8.3 fL (7.4-10.4); Platelet Count 310 thou/uL (130-400); RBC Distribution Width 13.9 % (11.5-14.5); Red Blood Cell (RBC) Count 3.48 mill/uL (4.20-5.40); White Blood Cell (WBC) Count 6.2 thou/uL (4.8-10.8)
[2019-12-29 05:41] LABS: Albumin 2.8 g/dL (3.4-4.8); Anion Gap 12 mmol/L (10-20); BUN (Urea Nitrogen) 9 mg/dL (9.8-20.1); BUN/Creatinine Ratio 13.85; Calc. Creatinine Clearance 55 mL/min (70-130); Calcium 8.2 mg/dL (7.8-10.44); Carbon Dioxide 27 mmol/L (23-31); Chloride 93 mmol/L (98-107); Estimated GFR-MDRD 86; Glucose 126 mg/dL (83-110); Magnesium 1.7 mg/dL (1.6-2.6); Phosphorus 3.1 mg/dL (2.3-4.7); Potassium 3.6 mmol/L (3.5-5.1); Sodium 128 mmol/L (136-145)
[2019-12-29] MEDS ORDERED: Magnesium 2 GM/50 ML 2 GM in Sodium Chloride 0.9% 100 ML IVPB SCH (09:00)
[2019-12-29] MEDS: Glimepiride 1 MG TAB PO SCH (09:15)
[2019-12-29] MEDS: Senokot S 8.6-50 MG TAB PO SCH ×2 (09:15→21:36)
[2019-12-29] MEDS: Acetaminophen 325 MG TAB PO PRN ×2 (09:15→17:31)
[2019-12-29] MEDS: Potassium Chloride 10 MEQ TAB PO SCH ×2 (09:17→17:31)
[2019-12-29] MEDS: Carvedilol 3.125 MG TAB PO SCH ×2 (09:17→21:36)
[2019-12-29] MEDS: Ferrous Sulfate 325 MG TAB PO SCH ×2 (09:17→17:31)
[2019-12-29] MEDS ORDERED: Magnesium 2 GM/50 ML 2 GM in Premix Bag 1 BAG IVPB SCH (09:45)
--- NOTE | 2019-12-29 09:58 | PRG ---
DATE OF SERVICE: 12/29/2019 SUBJECTIVE: The patient is doing well and has no acute complaints. She says that she is ready to go home. OBJECTIVE: VITAL SIGNS: On exam, her temperature is 97.4, pulse 88, respirations 16, O2 saturation 97% on room air, and blood pressure 121/61. HEENT: Unremarkable. NECK: No adenopathy or JVD. LUNGS: Few crackles in both bases. CARDIAC: S1 and S2. Regular. ABDOMEN: Soft. EXTREMITIES: No edema. LABORATORY DATA: Sodium 128, potassium 3.6, BUN 9, creatinine 0.6, and glucose 126. White blood cell count 6.2, hematocrit 32.3, and platelet count 310. ASSESSMENT: Left pleural effusion - likely post coronary artery bypass grafting in etiology. Complicated by being on Eliquis and aspirin. RECOMMENDATION: Hopefully, her cytology will be negative as expected. I think she is stable for discharge. She needs to follow up in the office in 3 to 4 weeks for repeat chest x-ray. I am going to keep her off the Eliquis and aspirin for 2 weeks. Job ID: [id number]
[2019-12-29] MEDS: Insulin Regular 300 UNITS/3 ML VIAL SC PRN (11:43)
--- NOTE | 2019-12-29 12:48 | PRG ---
DATE OF SERVICE: 12/29/2019 SUBJECTIVE: Ms. Summers is doing better. Less shortness of breath. No current complaints. OBJECTIVE: VITAL SIGNS: Blood pressure 120/65, pulse 88, temperature 97.4. LUNGS: Decreased breath sounds on the left versus right, although better. HEART: Irregularly regular. ABDOMEN: Soft, nontender, nondistended. EXTREMITIES: No edema. PERTINENT LABORATORY DATA: Hemoglobin 10.7, hematocrit 32.3, platelet count 310. IMPRESSION: 1. Shortness of breath. 2. Atrial fibrillation. 3. Coronary artery disease. 4. Status post bypass surgery. RECOMMENDATIONS: 1. We will need to hold Eliquis due to recent thoracentesis and bloody pleural effusion. 2. Continue aspirin. 3. Continue rate control. 4. Recommend outpatient low-dose Lasix. Otherwise, I have no further recommendations. Plan is to follow up with Ms. Summers in the next 1 to 2 weeks in the office. Job ID: [id number]
--- NOTE | 2019-12-29 19:01 | PDOC.HOSPP ---
- Subjective Encounter Date: 12/29/19 Encounter Time: 16:30 Subjective: Patient seen and examined for respiratory failure and congestive heart failure. Shortness of breath improving. Still on supplemental oxygen. Denies any chest pain or shortness of breath at rest. - Objective Vital Signs & Weight: Vital Signs (12 hours) Temp Pulse Pulse Pulse Resp BP BP 12/29/19 15:00 97.9 F 74 17 12/29/19 14:40 12/29/19 14:30 12/29/19 11:01 72 73 114/66 125/70 12/29/19 11:00 97.6 F 77 16 12/29/19 07:35 97.4 F L 88 16 BP Pulse Ox 12/29/19 15:00 99/54 L 95 12/29/19 14:40 109/60 93 L 12/29/19 14:30 90 L 12/29/19 11:01 12/29/19 11:00 98/58 L 96 12/29/19 07:35 121/65 97 Weight Weight 132 lb I&O: 12/28/19 12/29/19 12/30/19 06:59 06:59 06:59 Intake Total 200 830 720 Output Total 1200 2150 1475 Balance -1000 -1320 -755 Result Diagrams: 12/29/19 04:56 12/29/19 04:56 Additional Labs: Accuchecks 12/29/19 12/29/19 12/29/19 17:09 11:10 05:52 POC Glucose 134 H 296 H 143 H 12/28/19 21:01 POC Glucose 141 H EKG Reviewed by me: Yes (Atrial fibrillation on telemetry) Hospitalist ROS - Review of Systems Cardiovascular: denies: chest pain, palpitations, orthopnea, paroxysmal noc. dys pnea, edema, light headedness, other Gastrointestinal: reports: constipation. denies: nausea, vomiting, abdominal pain, diarrhea, melena, hematochezia, other Genitourinary: denies: dysuria, frequency, incontinence, hematuria, retention, other - Medication Medications: Active Medications Generic Name Dose Route Start Last Admin Trade Name Freq PRN Reason Stop Dose Admin Acetaminophen 650 mg 12/27/19 15:51 12/29/19 17:31 Acetaminophen 325 Mg Tab PO 650 mg Q6H PRN Administration Headache/Fever Or Mild Pain Atorvastatin Calcium 20 mg 12/27/19 21:00 12/28/19 21:28 Atorvastatin Calcium 20 Mg Tab PO 20 mg HS EMILY Administration Carvedilol 3.125 mg 12/27/19 21:00 12/29/19 09:17 Carvedilol 3.125 Mg Tab PO 3.125 mg BID EMILY Administration Ferrous Sulfate 325 mg 12/27/19 17:00 12/29/19 17:31 Ferrous Sulfate 325 Mg Tab PO 325 mg BID-WM EMILY Administration Furosemide 20 mg 12/28/19 14:00 12/29/19 14:43 Furosemide 20 Mg/2 Ml Vial SLOW IVP 20 mg 0600,1400 EMILY Administration Glimepiride 1 mg 12/29/19 08:00 12/29/19 09:15 Glimepiride 1 Mg Tab PO 1 mg QAM-WM EMILY Administration Insulin Human Regular 0 units 12/28/19 07:41 12/29/19 11:43 Insulin Regular 300 Units/3 Ml Vial SC 6 unit .MODERATE SLIDING SC PRN Administration Moderate Correctional Scale Latanoprost 1 drop 12/27/19 21:00 12/28/19 21:29 Latanoprost 0.005% Ophth Soln 2.5 Ml Bottle EA EYE 1 drop HS EMILY Administration Melatonin 3 mg 12/27/19 15:51 12/28/19 21:28 Melatonin 3 Mg Tab PO 3 mg HSPRN PRN Administration Insomnia Pantoprazole Sodium 40 mg 12/28/19 09:00 12/29/19 09:17 Pantoprazole 40 Mg Tab PO 40 mg DAILY EMILY Administration Potassium Chloride 20 meq 12/27/19 17:00 12/29/19 17:31 Potassium Chloride 10 Meq Tab PO 20 meq BID-WM EMILY Administration Senna/Docusate Sodium 1 tab 12/27/19 21:00 12/29/19 09:15 Senokot S 8.6-50 Mg Tab PO 1 tab BID EMILY Administration Sodium Chloride 10 ml 12/27/19 15:45 12/29/19 09:15 Flush - Normal Saline 10 Ml Syringe IVF 10 ml PRN PRN Administration Saline Flush - Exam General Appearance: NAD Neck: supple, no JVD Heart: no gallops, no rubs Respiratory: no rales, rhonchi Respiratory - other findings: Diminished air entry at bases Gastrointestinal: soft, non-distended Extremities: no cyanosis Neurological: no new deficit Hosp A/P - Plan 1. Acute hypoxic respiratory failure secondary to kxprz-hq-ervicdi diastolic heart failure exacerbation. Recent echocardiogram showed ejection fraction 55% to 60% with moderate concentric left ventricular hypertrophy and grade 3 diastolic dysfunction. 2. Coronary artery disease, status post coronary artery bypass graft in September 2019. 3. Generalized weakness with fatigue secondary to above. 4. Acute blood loss anemia due to hemothorax. 5. Diabetes mellitus type 2. 6. Hypertension. 7. Dyslipidemia. 8. Hypomagnesemia. 9. Hyponatremia. 10. Chronic kidney disease, stage 2. 11. Physical deconditioning. 12. Left hip fracture earlier this year secondary to fall, status post surgery. 13. Glaucoma. 14. Gastroesophageal reflux disease. 15. Erkixiev-nh-ypnxbq tricuspid regurgitation. PLAN: 12/28 Continue IV diuretics. Unable to increase Lasix dose due to blood pressure on the lower side. Continue carvedilol. Monitor H&H. Continue fluid restriction. Aspirin and Eliquis on hold per pulmonary recommendation. Continue physical therapy. Home health care evaluation. Replace magnesium. Add stool softeners. Continue other medications as above. Resume glimepiride at low-dose. Continue sliding scale. 12/27 Hemoglobin 10.4 today from 12.4. Will recheck later today. Type and screen for possible need for blood transfusion. Reduce Lasix to 20 mg bid. Continue carvedilol. Restart glimepiride at 1 mg daily. Replace potassium. Continue physical therapy occupational therapy. Cardiology and pulmonary input appreciated. Await cytology from thoracentesis. Hold aspirin and Eliquis per pulmonary recommendation. Home health care evaluation. Continue fluid restriction. Recheck labs in a.m.
[2019-12-29] MEDS ORDERED: Polyethylene Glycol 3350 17 GM Packet PO SCH (21:00)
[2019-12-29] MEDS: Atorvastatin Calcium 20 MG TAB PO SCH (21:36)
[2019-12-29] MEDS: Latanoprost 0.005% Ophth Soln 2.5 ml Bottle EA EYE SCH (21:36)
[2019-12-29] MEDS: Melatonin 3 MG TAB PO PRN (21:36)
[2019-12-30 04:45] LABS: #Eosinphils 0.2 thou/uL (0.0-0.7); #Lymphocytes 0.9 thou/uL (1.20-3.40); #Monocytes 0.6 thou/uL (0.11-0.59); #Neutrophils 3.7 thou/uL (1.40-6.50); %Basophils 0.8 % (0.0-1.0); %Eosinophils 4.3 % (0.0-10.0); %Monocytes 11.7 % (0.0-10.0); %Neutrophils 66.3 % (42.0-75.0); Hemoglobin 10.8 g/dL (12.0-16.0); Mean Corpuscular HGB CONC 33.2 g/dL (32.0-36.0); Mean Corpuscular Hemoglobin 30.8 pg (27.0-31.0); Mean Corpuscular Volume 92.6 fL (78.0-98.0); Mean Platelet Volume 7.9 fL (7.4-10.4); Platelet Count 342 thou/uL (130-400); RBC Distribution Width 13.8 % (11.5-14.5); Red Blood Cell (RBC) Count 3.51 mill/uL (4.20-5.40); White Blood Cell (WBC) Count 5.5 thou/uL (4.8-10.8)
[2019-12-30 05:07] LABS: Albumin 2.8 g/dL (3.4-4.8); Anion Gap 14 mmol/L (10-20); BUN (Urea Nitrogen) 9 mg/dL (9.8-20.1); BUN/Creatinine Ratio 14.06; Calc. Creatinine Clearance 56 mL/min (70-130); Calcium 8.2 mg/dL (7.8-10.44); Carbon Dioxide 27 mmol/L (23-31); Chloride 94 mmol/L (98-107); Estimated GFR-MDRD 87; Glucose 128 mg/dL (83-110); Magnesium 1.8 mg/dL (1.6-2.6); Phosphorus 3.5 mg/dL (2.3-4.7); Potassium 3.7 mmol/L (3.5-5.1); Sodium 131 mmol/L (136-145)
[2019-12-30] MEDS: Furosemide 20 MG/2 ML VIAL SLOW IVP SCH (05:16)
[2019-12-30 07:49] VITALS: BP 133/74; TEMP 97.8
[2019-12-30] MEDS ORDERED: Magnesium Sulfate 2 GM in Sodium Chloride 0.9% 100 ML IVPB SCH (08:30)
[2019-12-30] MEDS ORDERED: Magnesium 2 GM/50 ML 2 GM in Premix Bag 1 BAG IVPB SCH (08:30)
--- NOTE | 2019-12-30 08:39 | PRG ---
DATE OF SERVICE: 12/30/2019 SUBJECTIVE: The patient is doing well and wants to go home. OBJECTIVE: VITAL SIGNS: Temperature 97.8, pulse 80, respirations 16, O2 saturations 95% and blood pressure 133/74. HEENT: Unremarkable. NECK: No JVD. CHEST: Clear to auscultation. ABDOMEN: Soft and nontender. EXTREMITIES: No edema. LABORATORY DATA: Her cytology was negative. ASSESSMENT: Left post coronary artery bypass grafting pleural effusion with extensive bleeding at the time of thoracentesis. PLAN: She needs to be off Eliquis and aspirin for a full 2 weeks. She is stable for discharge. This has been discussed with Dr. Emmanuel. Job ID: [id number]
[2019-12-30] MEDS: Senokot S 8.6-50 MG TAB PO SCH (09:09)
[2019-12-30] MEDS: Potassium Chloride 10 MEQ TAB PO SCH (09:10)
[2019-12-30] MEDS: Carvedilol 3.125 MG TAB PO SCH (09:10)
[2019-12-30] MEDS: Ferrous Sulfate 325 MG TAB PO SCH (09:11)
[2019-12-30] MEDS: Glimepiride 1 MG TAB PO SCH (09:11)
[2019-12-30] MEDS: Insulin Regular 300 UNITS/3 ML VIAL SC PRN (11:24)
--- NOTE | 2019-12-30 15:47 | DIS ---
DATE OF ADMISSION: 12/27/2019 DATE OF DISCHARGE: 12/30/2019 DISCHARGE DISPOSITION: Home. FOLLOWUP: 1. Follow up with primary care physician, Dr. Sophie Lawrence next week. 2. Follow up with Pulmonary, Dr. Lorenzo and Cardiology, Dr. Emmanuel in 2 weeks. 3. [facility] was arranged. ALLERGIES: NO KNOWN DRUG ALLERGIES. DISCHARGE MEDICATIONS: Aspirin and Eliquis currently held due to hemothorax. All other home medications were left unchanged. The patient was seen and examined on the day of discharge. Denies any new complaints. Vital signs showed temperature 97.8 with pulse rate of 88, respirations 16, blood pressure 133/74. BRIEF HOSPITAL COURSE: The patient is an 89-year-old female with coronary artery disease and chronic diastolic heart failure, presented to the emergency room on 27 December 2019 with shortness of breath along with generalized weakness of [address] angiogram of the chest was consistent with worsening left-sided pleural effusion. She was started on IV Lasix and Pulmonary was consulted. Her thoracentesis was consistent with hemothorax. Eliquis and aspirin will be held for total of 2 weeks per Pulmonary recommendation. She also improved with IV Lasix. Pleural fluid cytology was negative for malignancy. Hemoglobin remained stable between 10 to 11. Home Health Care has been arranged. She appears stable for discharge. FINAL DIAGNOSES: 1. Acute hypoxic respiratory failure secondary to acute on chronic diastolic heart failure exacerbation. 2. Coronary artery disease, status post coronary artery bypass grafting in September of 2019. 3. Generalized weakness with fatigue due to above. 4. Acute blood loss anemia due to hemothorax. 5. Diabetes mellitus type 2. 6. Hypertension. 7. Hypomagnesemia. 8. Gastroesophageal reflux disease. 9. Bdlhhdwp-qt-pvhkrm tricuspid regurgitation. 10. Glaucoma. 11. Hyponatremia. 12. Chronic kidney disease stage 2. 13. Physical deconditioning. 14. Left hip fracture earlier this year due to mechanical fall, status post surgery. The patient and the family understand the above plan of care. The patient understands the risk associated with holding anticoagulation, not limited to life threatening CVA. Job ID: [id number]
--- NOTE | 2020-01-04 16:23 | EKG ---
Test Reason : Blood Pressure : / mmHG Vent. Rate : 079 BPM Atrial Rate : 049 BPM P-R Int : 000 ms QRS Dur : 072 ms QT Int : 346 ms P-R-T Axes : 000 -06 -70 degrees QTc Int : 396 ms Atrial fibrillation with premature ventricular or aberrantly conducted complexes Low voltage QRS Septal infarct , age undetermined Possible Lateral infarct , age undetermined Abnormal ECG Confirmed by SUKI KING DO ([id number]), copy editor MALLORIE WADDELL ([id number]) on 01/04/2020 4:22:29 PM Referred By: Confirmed By:SUKI KING DO
== END 2019-12-30 11:52 | disposition home health service (06) | DRG 291 ==
LOC: ERS 10:59 → ERHOLD 14:23 → 2SE 16:17
PROVIDERS: ADMIT Internal Medicine; ATTEND Internal Medicine
PROC: 0W9B3ZZ Drainage of Left Pleural Cavity, Percutaneous Approach (ICD-10-PCS; principal; 2019-12-27)
PROC: 3E0234Z Introduction of Serum, Toxoid and Vaccine into Muscle, Percutaneous Approach (ICD-10-PCS; 2019-12-28)
DX: I13.0 Hypertensive heart and chronic kidney disease with heart failure and stage 1 through stage 4 chronic kidney disease, or unspecified chronic kidney disease (principal); I50.33 Acute on chronic diastolic (congestive) heart failure; J96.01 Acute respiratory failure with hypoxia; D62 Acute posthemorrhagic anemia; J94.2 Hemothorax; E87.1 Hypo-osmolality and hyponatremia; J90 Pleural effusion, not elsewhere classified; Z23 Encounter for immunization; Z20.828 Contact with and (suspected) exposure to other viral communicable diseases; E11.22 Type 2 diabetes mellitus with diabetic chronic kidney disease; E83.42 Hypomagnesemia; K21.9 Gastro-esophageal reflux disease without esophagitis; I07.1 Rheumatic tricuspid insufficiency; H40.9 Unspecified glaucoma; N18.2 Chronic kidney disease, stage 2 (mild); M19.90 Unspecified osteoarthritis, unspecified site; E78.00 Pure hypercholesterolemia, unspecified; I25.10 Atherosclerotic heart disease of native coronary artery without angina pectoris; I27.20 Pulmonary hypertension, unspecified; Z79.84 Long term (current) use of oral hypoglycemic drugs; Z79.899 Other long term (current) drug therapy; Z79.82 Long term (current) use of aspirin; Z95.1 Presence of aortocoronary bypass graft; I48.91 Unspecified atrial fibrillation; Z86.73 Personal history of transient ischemic attack (TIA), and cerebral infarction without residual deficits; Z90.710 Acquired absence of both cervix and uterus; Z96.643 Presence of artificial hip joint, bilateral
CPT/HCPCS: 36415; 36416; 71045; 71275; 80053; 80069; 81003; 81015; 82150; 82945; 83615; 83735; 83880; 83986; 84100; 84157; 84443; 84478; 84484; 85025; 85060; 85379; 86850; 86900; 86901; 87070; 87116; 87205; 87206; 88112; 88305; 89051; 90471; 90732; 93005; 93798; 96374; G0009; J1815; J1940; J3475; J7050; Q9967; U0002

== ENCOUNTER 2020-01-18 14:11 | Outpatient (CLI) | payer MEDICARE ==
--- NOTE | 2020-01-18 14:31 | RAD ---
Chest 2 views HISTORY: Dyspnea. COMPARISON: 12/27/2019. FINDINGS: Left cardiac margin is obscured by large amount of pleural and parenchymal opacity at the l eft base. Pulmonary vasculature upper limits of normal. Mediastinum remains midline with postoperative changes and aortic calcification. Right lung is well-inflated. No evidence of pneumothorax. IMPRESSION : Large left pleural effusion. Other findings are stable.
== END 2020-01-18 14:12 | disposition home or self-care (01) ==
LOC: BICRAD 14:11
PROVIDERS: ATTEND Internal Medicine Critical Care Medicine
DX: R06.00 Dyspnea, unspecified (principal); J90 Pleural effusion, not elsewhere classified
CPT/HCPCS: 71046

== ENCOUNTER 2020-01-27 11:58 | Outpatient (CLI) | payer MEDICARE ==
--- NOTE | 2020-01-27 12:30 | RAD ---
XR Chest Pa Lat STANDARD HISTORY: Pleural effusion COMPARISON: 01/18/2020 FINDINGS: Changes of median sternotomy are again seen. The heart size is stable. Moderate-sized left pleural effusion is seen with mild interval improvement since the last exam. Right lung is clear. IMPRESSION: Mild interval improvement in the left pleural effusion since 01/18/2020
== END 2020-01-27 11:59 | disposition home or self-care (01) ==
LOC: BICRAD 11:58
PROVIDERS: ATTEND Internal Medicine Critical Care Medicine
DX: R06.00 Dyspnea, unspecified (principal); J90 Pleural effusion, not elsewhere classified
CPT/HCPCS: 71046

== ENCOUNTER 2020-02-14 13:18 | Outpatient (CLI) | payer MEDICARE ==
--- NOTE | 2020-02-14 13:39 | RAD ---
EXAM: Chest 2 views: HISTORY: Shortness of breath COMPARISON: 01/27/2020 FINDINGS: There is an enlarged but stable cardiomediastinal silhouette. The patient is status post CABG. Ther e is a small left pleural effusion with adjacent atelectasis versus infiltrate. Increased interstitial markings are present. Degenerative changes are seen in the spine. IMPRESSION: Small left pleural effusion with adjacent atelectasis versus infiltrate
== END 2020-02-14 13:19 | disposition home or self-care (01) ==
LOC: BICRAD 13:18
PROVIDERS: ATTEND Internal Medicine Critical Care Medicine
DX: R06.00 Dyspnea, unspecified (principal); J90 Pleural effusion, not elsewhere classified
CPT/HCPCS: 71046

== ENCOUNTER 2020-03-06 16:48 | Emergency (ER) | payer MEDICARE ==
--- NOTE | 2020-03-06 17:28 | RAD ---
PORTABLE CHEST: History: Shortness of breath for a few days. Comparison: 02-14-2020 FINDINGS: Heart size is within normal limits. Post op sternotomy changes are seen. Pleural changes in the left base are stable. The right lung appears clear. IMPRESSION: Left sided pleural effusion versus pleural thickening, unchanged since the prior exam. POS: PALLAVI
[2020-03-06 17:53] LABS: #Eosinphils 0.1 thou/uL (0.0-0.7); #Lymphocytes 0.9 thou/uL (1.20-3.40); #Monocytes 0.7 thou/uL (0.11-0.59); #Neutrophils 5.3 thou/uL (1.40-6.50); %Basophils 0.3 % (0.0-1.0); %Eosinophils 1.9 % (0.0-10.0); %Lymphocytes 12.9 % (21.0-51.0); %Monocytes 10.2 % (0.0-10.0); %Neutrophils 74.7 % (42.0-75.0); Hemoglobin 12.2 g/dL (12.0-16.0); Mean Corpuscular HGB CONC 33.6 g/dL (32.0-36.0); Mean Corpuscular Hemoglobin 30.9 pg (27.0-31.0); Mean Corpuscular Volume 91.9 fL (78.0-98.0); Platelet Count 266 thou/uL (130-400); RBC Distribution Width 16.4 % (11.5-14.5); Red Blood Cell (RBC) Count 3.93 mill/uL (4.20-5.40)
[2020-03-06 18:53] LABS: ALT (SGPT) 37 U/L (8-55); AST (SGOT) 27 U/L (5-34); Albumin 3.8 g/dL (3.4-4.8); Alkaline Phosphatase 88 U/L (40-110); Anion Gap 18 mmol/L (10-20); BUN (Urea Nitrogen) 10 mg/dL (9.8-20.1); Bilirubin, Total 0.4 mg/dL (0.2-1.2); Calc. Creatinine Clearance 0 mL/min (70-130); Calcium 9.2 mg/dL (7.8-10.44); Carbon Dioxide 22 mmol/L (23-31); Chloride 91 mmol/L (98-107); Globulin 2.7 g/dL (2.4-3.5); Glucose 89 mg/dL (83-110); Potassium 4.6 mmol/L (3.5-5.1); Protein, Total 6.5 g/dL (6.0-8.3); Sodium 126 mmol/L (136-145)
[2020-03-06] MEDS ORDERED: Furosemide 40 MG/4 ML VIAL ONE (20:48)
[2020-03-06 21:00] LABS: PTT 27.6 sec (22.9-36.1); Prothrombin Time 13.8 sec (12.0-14.7)
[2020-03-06 21:01] LABS: D-Dimer Test 1.9 *mcg/mL (0.27-0.43)
[2020-03-06 21:40] LABS: Lactic Acid 1.7 mmol/L (0.5-2.2)
--- NOTE | 2020-03-06 23:00 | CT ---
CTA Angio Chest W WO Con History: Shortness of breath Comparison: CT angiogram chest December 27, 2019. Chest radiograph March 06, 2020 Findings: CT angiogram chest performed after the intravenous administration of contrast. 3-D renderin g provided. No proximal segmental pulmonary arterial filling defect. No significant pericardial effusion. Partial resolution of the right apical parenchymal opacities from the comparison examination although there are new right middle lobe and right lower lobe parenchymal opacities. Moderate-large left layering pleural effusion. No acute osseous abnormality. Old compression deformity of L1. No acute di splaced rib fracture. Impression: 1. Moderate-large left layering pleural effusion is similar. 2. No pulmonary embolism. 3. Partial resolution of the right apical groundglass opacity with new right upper and right middle l obe airspace opacities can be seen organizing pneumonia or viral infectious process.
== END 2020-03-07 00:46 | disposition home or self-care (01) ==
LOC: ERS 16:48
DX: J18.9 Pneumonia, unspecified organism (principal); R06.02 Shortness of breath; K21.9 Gastro-esophageal reflux disease without esophagitis; Z86.73 Personal history of transient ischemic attack (TIA), and cerebral infarction without residual deficits; E11.9 Type 2 diabetes mellitus without complications; E78.00 Pure hypercholesterolemia, unspecified; Z79.84 Long term (current) use of oral hypoglycemic drugs; Z79.82 Long term (current) use of aspirin; Z79.01 Long term (current) use of anticoagulants; Z79.899 Other long term (current) drug therapy
CPT/HCPCS: 36415; 71045; 71275; 80053; 83605; 83880; 84484; 85025; 85379; 85610; 85730; 87040; 93005; 96374; J1940; Q9967